=== PATIENT | female | born 1940 | race Caucasian/White ===

== ENCOUNTER 2017-08-19 23:30 | Emergency (ER) | payer MEDICARE, OTHER ==
[~2017-08-19] VITALS: Ht 162.6 cm; Wt 90.7 kg
[~2017-08-19 23:30] MED LIST: ESOM40CA PO; METO-237 PO; PRAV10TA2 PO; RAMI5CAP37 PO
--- NOTE | 2017-08-19 23:55 | PCM.EKG ---
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
[2017-08-19 23:56] VITALS: BP 186/100
[2017-08-20 00:34] LABS: BASOPHIL % 0.2 % (0.0-0.2); EOSINOPHIL # 0.1 10^3/uL (0.0-0.2); EOSINOPHIL % 1.2 % (0.0-5.0); HEMOGLOBIN 12.2 g/dL (12.0-15.0); LYMPHOCYTES # 1.7 10^3/uL (1.0-4.8); LYMPHOCYTES % 28.9 % (24.0-44.0); MEAN CELL HGB CONCENTRATION 35.3 g/dL (33-37); MEAN CORP VOLUME 85.2 fL (78-100); MEAN PLATELET VOLUME 9.7 fL (7.8-11.0); MONOCYTES # 0.4 10^3/uL (0.3-0.8); MONOCYTES % 7.3 % (5.0-12.0); NEUTROPHIL # 3.6 10^3/uL (1.8-7.7); NEUTROPHILS % 61.9 % (41.0-85.0); RED CELL DISTRIBUTION WIDTH 13.1 % (11.5-14.5); WHITE BLOOD CELL 5.8 10^3/uL (4.5-11.0)
[2017-08-20] MEDS: CATAPRES PO STA (00:36)
[2017-08-20] MEDS ORDERED: CATAPRES ONE (00:36)
--- NOTE | 2017-08-20 00:44 | DIREP ---
PROCEDURE:CHEST 1 VIEW COMPARISON:CR, CHEST 2 VIEW, 08/29/2013, 01:21 PM. INDICATIONS:CHEST AND BACK PAIN FINDINGS: FINDINGS: LUNGS/PLEURA:No significant pulmonary parenchymal abnormalities or pleural effusion. CARDIAC:Normal cardiac silhouette and normal pulmonary vascularity. MEDIASTINUM:Normal. BONES:Normal. OTHER:Right mastectomy and lymph node dissection. CONCLUSION:No acute cardiopulmonary process or significant change. Dictated by: Purnima Locke MD on 08/20/2017 at 00:42 AM
[2017-08-20 00:46] LABS: CARBON DIOXIDE 26.6 mmol/L (20.0-32); GLUCOSE 122 mg/dL (70-110)
[2017-08-20 00:47] LABS: ALANINE AMINOTRANSFERASE(ML) 25 U/L (12-78); ALKALINE PHOSPHATASE 98 U/L (50-136); ASPARTATE AMINO TRANSFERASE 21 U/L (0-35); CALCIUM 8.7 mg/dL (8.4-10.5)
--- NOTE | 2017-08-20 00:54 | ER.PDOC ---
General Chief Complaint: General Complaint Stated Complaint: HIGH BLOOD PRESSURE TRAVEL OUT OF US: No Time seen by MD: 00:20 Source: patient, family Exam Limitations: no limitations History of Present Illness Initial Comments 76 year old white male with high blood pressure reading. Does not watch salt intake. Takes medications regularly. History of chronic back pain but refuses to take pain medication. BP runs high at home and patient reports not feeling well. No nausea, no vomiting, no headache Allergies: Coded Allergies: Penicillins (Verified Allergy, Intermediate, RASH, 12/15/12) morphine (Verified Allergy, Mild, 11/06/14) Mmsvdrw-Qtg-Ewd Reductase Inhibitor (Verified Allergy, Unknown, Hives, ) "FLU-LIKE SYMPTOMS" Home Meds Reported Medications Pravastatin Sodium (PRAVASTATIN SODIUM) 10 Mg Tablet, 1 TAB PO HS, #90 TAB 1 Refill 08/09/15 Ramipril 5MG (ALTACE 5MG) 5 Mg Capsule, 1 CAP PO DAILY, #30 CAP 5 Refills 11/06/14 Metoprolol Succinate (METOPROLOL SUCCINATE) 50 Mg Tab.er.24h, 1 TAB PO DAILY, # 30 TAB 5 Refills 11/06/14 Esomeprazole Magnesium (NEXIUM) 40 Mg Capsule.dr, 1 CAP PO DAILY, #30 CAP 5 Refills 11/06/14 Past Medical History Medical History: arrhythmia, cancer, GERD, high cholesterol, hypertension, other (Paget's disease of the bone) Surgical History: cholecystectomy LMP (females 10-50): postmenopause Social History Smoking: non-smoker, quit greater than 1 year Alcohol Use: none Drug Use: none Review of Systems Constitutional: weakness EENTM: no symptoms reported Respiratory: no symptoms reported Cardiovascular: no symptoms reported Gastrointestinal: no symptoms reported Genitourinary: no symptoms reported Musculoskeletal: back pain Skin: no symptoms reported Psychiatric/Neurological: no symptoms reported Hematologic/Lymphatic: no symptoms reported Immunological/Allergic: no symptoms reported Physical Exam General Appearance: No Apparent Distress, WD/WN EENT: eyes nml inspection, nml ENT inspection, pharynx nml Neck: Non-Tender, Full Range of Motion, Supple, Normal Inspection Respiratory: chest non-tender, lungs clear, normal breath sounds, no respiratory distress, no accessory muscle use CVS: reg rate & rhythm, no murmur, no gallop, pulses nml, nml capillary refill Gastrointestinal: Normal Bowel Sounds, No Organomegaly, No Pulsatile Mass, Non Tender, Absent bowel sounds Rectal: Normal Exam Back: No CVA Tenderness, No Vertebral Tenderness Extremities: Normal Range of Motion, Non-Tender, Normal Inspection, No Pedal Edema 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0) Monocytes (%) (Auto) 7.3 % (5.0-12.0) Neutrophils # (Auto) 3.6 10^3/uL (1.8-7.7) Lymphocytes # (Auto) 1.7 10^3/uL (1.0-4.8) Monocytes # (Auto) 0.4 10^3/uL (0.3-0.8) Absolute Immature Granulocyte (auto 0.03 10^3 u/L (0-2) Eosinophils % 1.2 % (0.0-5.0) Basophils % 0.2 % (0.0-0.2) Basophils # 0.0 10^3/uL (0.0-0.1) Eosinophil Count 0.1 10^3/uL (0.0-0.2) Prothrombin Time 10.3 SEC (9.8-11.9) Prothrombin Time INR (Non-Therap) 1.0 Activated Partial Thromboplast Time 24.1 SEC (24.67-30.72) Sodium Level 142 mmol/L (132-145) Potassium Level 3.6 mmol/L (3.6-5.2) Chloride Level 106.0 mmol/L (96-109) Carbon Dioxide Level 26.6 mmol/L (20.0-32) Anion Gap 13.0 Blood Urea Nitrogen 16 mg/dL (7-18) Creatinine 1.13 mg/dL (0.59-1.40) Estimated GFR () 56.3 (>/=60) BUN/Creatinine Ratio 14.0 Glucose Level 122 mg/dL (70-110) Calcium Level 8.7 mg/dL (8.4-10.5) Total Bilirubin 0.4 mg/dL (0.2-1.0) Aspartate Amino Transf (AST/SGOT) 21 U/L (0-35) Alanine Aminotransferase (ALT/SGPT) 25 U/L (12-78) Alkaline Phosphatase 98 U/L (50-136) Total Creatine Kinase 50 U/L (26-192) Creatine Kinase MB 1.5 ng/mL (0.5-3.6) Troponin I < 0.02 ng/mL (0.00-0.05) Pro-B-Type Natriuretic Peptide 321 pg/mL (0-450) Total Protein 7.0 g/dL (6.4-8.2) Albumin 3.8 g/dL (3.4-5.0) Globulin 3.2 Percent Immature Gran (Cell Imm) 0.50 % (0.00-0.50) Helicobacter pylori Screen NEGATIVE (NEGATIVE) Administered Medications Medications (Trade) Dose Ordered Sig/Bee Route PRN Reason Start Time Stop Time Status Last Admin Dose Admin Clonidine (Catapres) 0.2 mg STAT STAT PO 08/20/17 00:30 08/20/17 00:31 DC 08/20/17 00:36 Progress Progress BP on recheck 185/85. Feeling better. Labs reviewed with patient. Departure Time of Disposition: 01:46 Disposition: 01 HOME, SELF-CARE Impression: Primary Impression: Hypertension Qualified Codes: I10 - Essential (primary) hypertension Condition: Stable Referrals: KAYLIN FLORENCE DO (PCP) PRIMARY CARE PROVIDER Additional Instructions: Watch salt intake ADD Norvasc 5 mg po qd ADD Clonidine 0.1 mg po bid for BP > 160/100. May repeat Follow up PCP RTER prn Check bp at home. Goal < 135/85 Duration or Time Spent with Pa: 60 TYSON MCKINNEY MD Aug 20, 2017 00:54
[2017-08-20 01:00] VITALS: BP 179/98
[2017-08-20 01:57] VITALS: BP 174/86
== END 2017-08-20 01:55 | disposition home or self-care (01) ==
LOC: ER 23:30
DX: I10 Essential (primary) hypertension (principal); E78.00 Pure hypercholesterolemia, unspecified; K21.9 Gastro-esophageal reflux disease without esophagitis; M88.9 Osteitis deformans of unspecified bone; R79.1 Abnormal coagulation profile; M54.9 Dorsalgia, unspecified; Z88.0 Allergy status to penicillin; Z88.5 Allergy status to narcotic agent; Z90.49 Acquired absence of other specified parts of digestive tract; Z87.891 Personal history of nicotine dependence; Z79.899 Other long term (current) drug therapy
CPT/HCPCS: 36415; 71045; 80053; 82550; 82553; 83880; 84484; 85025; 85610; 85730; 86677; 93005; 99283; 99285

== ENCOUNTER 2017-11-17 22:05 | Emergency (ER) | payer MEDICARE, OTHER ==
[2017-11-17] VITALS (7 sets, daily range): BP systolic 196–224; BP diastolic 64–112
[~2017-11-17] VITALS: Ht 165.1 cm; Wt 86.2 kg
[2017-11-17] MEDS ORDERED: CATAPRES PO STA (22:47)
[2017-11-17 22:58] LABS: BILIRUBIN,URINE NEGATIVE (NEGATIVE); UROBILINOGEN,URINE NORMAL (NEGATIVE)
[2017-11-17 22:59] LABS: APPEARANCE,URINE CLEAR (CLEAR); UA COLOR YELLOW (YELLOW)
[2017-11-17] MEDS ORDERED: CATAPRES ONE (22:59)
[2017-11-17 23:04] LABS: BASOPHIL % 0.2 % (0.0-0.2); EOSINOPHIL # 0.1 10^3/uL (0.0-0.2); EOSINOPHIL % 1.6 % (0.0-5.0); HEMOGLOBIN 12.9 g/dL (12.0-15.0); LYMPHOCYTES # 1.6 10^3/uL (1.0-4.8); LYMPHOCYTES % 31.3 % (24.0-44.0); MEAN CELL HGB 29.2 pg (26-34); MEAN CORP VOLUME 85.7 fL (78-100); MEAN PLATELET VOLUME 8.8 fL (7.8-11.0); MONOCYTES # 0.4 10^3/uL (0.3-0.8); MONOCYTES % 7.6 % (5.0-12.0); NEUTROPHIL # 3.1 10^3/uL (1.8-7.7); NEUTROPHILS % 59.3 % (41.0-85.0); RED CELL DISTRIBUTION WIDTH 13.4 % (11.5-14.5); WHITE BLOOD CELL 5.1 10^3/uL (4.5-11.0)
--- NOTE | 2017-11-17 23:17 | DIREP ---
PROCEDURE:CT HEAD OR BRAIN W/O CONTRAST COMPARISON:[facility], MR, MRI BRAIN W/WO, 01/19/2017, 11:01 AM. [facility], CT, CT HEAD BRAIN W/O CONTRAST, 12/14/2016, 04:30 PM. INDICATIONS:Headache TECHNIQUE:CT images were created without intravenous contrast. FINDINGS: VENTRICLES:There is mild prominence of the ventricles and cortical sulci consistent with age related involutional changes. CEREBRUM:Small foci of diminished attenuation in the supratentorial white matter consistent with mild leukoaraiosis. CEREBELLUM:Negative. BRAINSTEM:Negative. BASAL CISTERNS:Negative. HEMORRHAGE:No MASS LESION:No ACUTE INFARCT:No SKULL:Hyperostosis frontalis SINUSES:Normal. OTHER:None CONCLUSION:No acute intracranial process demonstrated. No significant interval change Dictated by: Marquez Albrecht M.D. on 11/17/2017 at 11:14 PM
[2017-11-17 23:21] LABS: CALCIUM 9.1 mg/dL (8.4-10.5); CARBON DIOXIDE 30.6 mmol/L (20.0-32)
--- NOTE | 2017-11-17 23:22 | ER.PDOC ---
General Chief Complaint: Headache Stated Complaint: HEADACHE, HBP Time seen by MD: 22:40 Source: patient Exam Limitations: no limitations History of Present Illness Initial Comments Pt with history of HTN, Paget's, now developed headache, intense since earlier today Timing/Duration: 24 hours Severity/Quality: severe Prior Headaches/Recent Trauma: frequent headaches Associated Symptoms: denies symptoms Allergies: Coded Allergies: Penicillins (Verified Allergy, Intermediate, RASH, 12/15/12) morphine (Verified Allergy, Mild, 11/06/14) Edvbsem-Vkq-Yyy Reductase Inhibitor (Verified Allergy, Unknown, Hives, ) "FLU-LIKE SYMPTOMS" Home Meds Reported Medications Pravastatin Sodium (PRAVASTATIN SODIUM) 10 Mg Tablet, 1 TAB PO HS, #90 TAB 1 Refill 08/09/15 Ramipril 5MG (ALTACE 5MG) 5 Mg Capsule, 1 CAP PO DAILY, #30 CAP 5 Refills 11/06/14 Metoprolol Succinate (METOPROLOL SUCCINATE) 50 Mg Tab.er.24h, 1 TAB PO DAILY, # 30 TAB 5 Refills 11/06/14 Esomeprazole Magnesium (NEXIUM) 40 Mg Capsule.dr, 1 CAP PO DAILY, #30 CAP 5 Refills 11/06/14 Past Medical History Medical History: cancer, hypertension Surgical History: cholecystectomy, mastectomy Social History Smoking: non-smoker Alcohol Use: none Drug Use: none Review of Systems Psychiatric/Neurological: see HPI, headache All Other Systems: Reviewed and Negative Physical Exam General Appearance: No Apparent Distress, WD/WN Head/Eyes: eyes nml inspection, no facial swelling, no nystagmus, PERRL ENT: nml ENT inspection, pharynx nml Neck: nml inspection, Supple Cardiovascular: Normal Peripheral Pulses, Regular Rate, Rhythm, No Edema, No Gallop, No JVD, No Murmur Respiratory: chest non-tender, lungs clear, normal breath sounds, no respiratory distress, no accessory muscle use Gastrointestinal: Normal Bowel Sounds, No Organomegaly, No Pulsatile Mass, Non Tender, Soft Back: Normal Inspection, No CVA Tenderness, No Vertebral Tenderness Extremities: Normal Range of Motion, Non-Tender, Normal Inspection, No Pedal Edema, No Calf Tenderness, Normal Capillary Refill Psychiatric: Alert, Oriented x 3 Cranial Nerves: Normal Hearing, Normal Speech, PERRL Coordination/Gait: Normal Finger to Nose, Normal Gait Motor/Sensory: No Motor Deficit, No Sensory Deficit, No Pronator Drift, Negative Babinski's Sign Skin: Warm/Dry, Normal Color Lymphatic: No Adenopathy Results/Orders Results/Orders Laboratory Tests Test 11/17/17 00:00 11/17/17 22:55 Urine Collection Type UNKNOWN Urine Color YELLOW (YELLOW) Urine Appearance CLEAR (CLEAR) Urine Bilirubin NEGATIVE MG/DL (NEGATIVE) Urine Ketones NEGATIVE (NEGATIVE) Urine Specific [place] 1.015 (1.005-1.035) Urine pH 6 (5.0-6.0) Urine Protein NEGATIVE (NEGATIVE) Urine Urobilinogen NORMAL (NEGATIVE) Urine Nitrate NEGATIVE (NEGATIVE) Urine Leukocyte Esterase NEGATIVE (NEGATIVE) Urine Blood NEGATIVE (NEGATIVE) Urine Glucose NORMAL (NEGATIVE) White Blood Count 5.1 10^3/uL (4.5-11.0) Red Blood Count 4.42 10^6/uL (4.00-5.20) Hemoglobin 12.9 g/dL (12.0-15.0) Hematocrit 37.9 % (36.0-46.0) Mean Corpuscular Volume 85.7 fL (78-100) Mean Corpuscular Hemoglobin 29.2 pg (26-34) Mean Corpuscular Hemoglobin Concent 34.0 g/dL (33-37) Red Cell Distribution Width 13.4 % (11.5-14.5) Platelet Count 140 10^3/uL (150-400) Mean Platelet Volume 8.8 fL (7.8-11.0) Neutrophils (%) (Auto) 59.3 % (41.0-85.0) Lymphocytes (%) (Auto) 31.3 % (24.0-44.0) Monocytes (%) (Auto) 7.6 % (5.0-12.0) Neutrophils # (Auto) 3.1 10^3/uL (1.8-7.7) Lymphocytes # (Auto) 1.6 10^3/uL (1.0-4.8) Monocytes # (Auto) 0.4 10^3/uL (0.3-0.8) Absolute Immature Granulocyte (auto 0 10^3 u/L (0-2) Eosinophils % 1.6 % (0.0-5.0) Basophils % 0.2 % (0.0-0.2) Basophils # 0.0 10^3/uL (0.0-0.1) Eosinophil Count 0.1 10^3/uL (0.0-0.2) Sodium Level 144 mmol/L (132-145) Potassium Level 3.4 mmol/L (3.6-5.2) Chloride Level 104.0 mmol/L (96-109) Carbon Dioxide Level 30.6 mmol/L (20.0-32) Anion Gap 12.8 Blood Urea Nitrogen 12 mg/dL (7-18) Creatinine 0.94 mg/dL (0.59-1.40) Estimated GFR () 69.5 (>/=60) BUN/Creatinine Ratio 12.0 Glucose Level 124 mg/dL (70-110) Calcium Level 9.1 mg/dL (8.4-10.5) Total Bilirubin 0.5 mg/dL (0.2-1.0) Aspartate Amino Transf (AST/SGOT) 25 U/L (0-35) Alanine Aminotransferase (ALT/SGPT) 22 U/L (12-78) Alkaline Phosphatase 88 U/L (50-136) Total Protein 7.1 g/dL (6.4-8.2) Albumin 3.9 g/dL (3.4-5.0) Globulin 3.2 Percent Immature Gran (Cell Imm) 0.00 % (0.00-0.50) Administered Medications Medications (Trade) Dose Ordered Sig/Bee Route PRN Reason Start Time Stop Time Status Last Admin Dose Admin Clonidine (Catapres) 0.2 mg STAT STAT PO 11/17/17 22:47 11/17/17 22:49 DC 11/17/17 23:00 Departure Time of Disposition: 23:56 Disposition: 01 HOME, SELF-CARE Impression: Primary Impression: Headache Additional Impression: Hypertension Condition: Stable Patient Instructions: Hypertension Referrals: KAYLIN FLOERNCE DO (PCP) PRIMARY CARE PROVIDER Duration or Time Spent with Pa: ZOILA TAN MD Nov 17, 2017 23:22
[2017-11-17] MEDS ORDERED: TRANDATE IV ONE (23:46)
[2017-11-18] MEDS ORDERED: TRANDATE IV PRN
[2017-11-18 00:15] VITALS: BP 144/76
[2017-11-18 00:24] VITALS: BP 144/76
== END 2017-11-18 00:14 | disposition home or self-care (01) ==
LOC: ER 22:05
DX: I10 Essential (primary) hypertension (principal); Z85.9 Personal history of malignant neoplasm, unspecified; Z90.49 Acquired absence of other specified parts of digestive tract; Z90.10 Acquired absence of unspecified breast and nipple; Z79.899 Other long term (current) drug therapy; Z88.0 Allergy status to penicillin; Z88.5 Allergy status to narcotic agent; Z88.8 Allergy status to other drugs, medicaments and biological substances
CPT/HCPCS: 36415; 70450; 80053; 81002; 85025; 99285; J3490

== ENCOUNTER 2017-11-18 10:16 | Emergency (ER) | payer MEDICARE, OTHER ==
[~2017-11-18] VITALS: Ht 162.6 cm; Wt 86.6 kg
[2017-11-18 10:32] VITALS: BP 155/87
--- NOTE | 2017-11-18 10:32 | NUR ---
ARRIVAL PATIENT ARRIVED TO ED4 AMBULATORY, C/O OF GENERALIZED WEAKNESS TODAY, PATIENT WAS SEEN IN THE ED LAST NIGHT FOR SIMILAR SYMPTOMS AND SENT HOME, TODAY SHE ISNT FEELING ANY BETTER, CAME BACK TO THE ED FOR FURTHER EVAL.
[2017-11-18] MEDS ORDERED: NS 1000ML 1,000 ML ONE (10:52)
[2017-11-18] MEDS ORDERED: NS 1000ML 1,000 ML IV STA (10:53)
--- NOTE | 2017-11-18 10:56 | PCM.EKG ---
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
--- NOTE | 2017-11-18 11:17 | ER.PDOC ---
General Chief Complaint: General Complaint Stated Complaint: GENERAL COMPLAINT TRAVEL OUT OF US: No Time seen by MD: 11:13 Source: patient Exam Limitations: no limitations History of Present Illness Initial Comments Weakness, mouth dry, wants IVFs. This has been going on for days. Seen in the ED yesterday for similar presentation with negative blood work and CT head. Patient wants to sleep most of the time and does not want to do anything. She is stressed. No SI or HI. Severity: moderate Associated Symptoms: weakness Allergies: Coded Allergies: Penicillins (Verified Allergy, Intermediate, RASH, 12/15/12) morphine (Verified Allergy, Mild, 11/06/14) Cpojbby-Lav-Eov Reductase Inhibitor (Verified Allergy, Unknown, Hives, ) "FLU-LIKE SYMPTOMS" Home Meds Reported Medications Pravastatin Sodium (PRAVASTATIN SODIUM) 10 Mg Tablet, 1 TAB PO HS, #90 TAB 1 Refill 08/09/15 Ramipril 5MG (ALTACE 5MG) 5 Mg Capsule, 1 CAP PO DAILY, #30 CAP 5 Refills 11/06/14 Metoprolol Succinate (METOPROLOL SUCCINATE) 50 Mg Tab.er.24h, 1 TAB PO DAILY, # 30 TAB 5 Refills 11/06/14 Esomeprazole Magnesium (NEXIUM) 40 Mg Capsule.dr, 1 CAP PO DAILY, #30 CAP 5 Refills 11/06/14 Past Medical History Medical History: cancer, hypertension, other Surgical History: cancer surgery, cholecystectomy, other LMP (females 10-50): postmenopause Social History Smoking: non-smoker Alcohol Use: none Drug Use: none Review of Systems Constitutional: see HPI EENTM: no symptoms reported Respiratory: no symptoms reported Cardiovascular: no symptoms reported Gastrointestinal: no symptoms reported Genitourinary: no symptoms reported All Other Systems: Reviewed and Negative Physical Exam General Appearance: No Apparent Distress, Anxious Neck: Non-Tender, Full Range of Motion, Supple, Normal Inspection Respiratory: chest non-tender, lungs clear, normal breath sounds, no respiratory distress CVS: reg rate & rhythm, no murmur, no gallop, pulses nml, nml capillary refill Gastrointestinal: Normal Bowel Sounds, No Organomegaly, No Pulsatile Mass, Non Tender Back: Normal Inspection Extremities: Normal Range of Motion Neurologic/Psychiatric: Depressed Affect Skin: Normal Color Results/Orders Results/Orders Administered Medications Medications (Trade) Dose Ordered Sig/Bee Route PRN Reason Start Time Stop Time Status Last Admin Dose Admin Sodium Chloride 1,000 ml @ 1,200 mls/hr Q50M STAT IV 11/18/17 10:53 11/18/17 11:42 11/18/17 11:02 Departure Time of Disposition: 11:15 Disposition: 01 HOME, SELF-CARE Impression: Primary Impression: Anxiety and depression Condition: Stable Referrals: KAYLIN FLORENCE DO (PCP) PRIMARY CARE PROVIDER Additional Instructions: F/U with your PCP in 3-4 days Duration or Time Spent with Pa: 45 mins YONG,CASSANDRA Shafer MD Nov 18, 2017 11:17
[2017-11-18 11:30] VITALS: BP 138/78
[2017-11-18 11:40] VITALS: BP 138/78
== END 2017-11-18 11:39 | disposition home or self-care (01) ==
LOC: ER 10:16
DX: F41.9 Anxiety disorder, unspecified (principal); F32.9 Major depressive disorder, single episode, unspecified; I10 Essential (primary) hypertension; Z85.9 Personal history of malignant neoplasm, unspecified; Z90.49 Acquired absence of other specified parts of digestive tract; Z79.899 Other long term (current) drug therapy; Z88.0 Allergy status to penicillin; Z88.5 Allergy status to narcotic agent; Z88.8 Allergy status to other drugs, medicaments and biological substances
CPT/HCPCS: 93005; 99284; J7030

== ENCOUNTER → 2018-01-21 | Outpatient (CLI) | payer MEDICARE, OTHER ==
--- NOTE | 2018-01-21 13:24 | DIREP ---
PROCEDURE:CT HEAD OR BRAIN W/O CONTRAST COMPARISON:[facility], CT, CT HEAD BRAIN W/O CONTRAST, 11/17/2017, 10:58 PM. INDICATIONS:FALL W19.XXXA, R/O SUBDURAL HEMATOMA TECHNIQUE:CT images were created without intravenous contrast. FINDINGS: VENTRICLES: Unremarkable ventricular size and morphology for the patient's age. CEREBRUM: Mild generalized age-related parenchymal volume loss. No apparent mass or mass effect. No acute intracranial hemorrhage or abnormal extra-axial fluid collections. No CT evidence to suggest acute large vascular territorial ischemia. CEREBELLUM: Unremarkable for the patient's age. BRAINSTEM: Normal. SKULL: Normal. SINUSES: No significant paranasal sinus disease CONCLUSION: 1. Mild senescent changes with mild generalized age-related parenchymal volume loss. No acute intracranial abnormality is identified. No subdural hematoma. Dictated by: Redd Villa M.D. On 01/21/2018 at 01:16 PM
== END | disposition home or self-care (01) ==
LOC: RAD 10:26
PROVIDERS: ATTEND Internal Medicine Rheumatology
DX: G93.89 Other specified disorders of brain (principal); W19.XXXA Unspecified fall, initial encounter; Y93.89 Activity, other specified; Y92.89 Other specified places as the place of occurrence of the external cause; Y99.8 Other external cause status
CPT/HCPCS: 70450

== ENCOUNTER 2018-04-28 11:16 | Inpatient (IN) | payer MEDICARE, OTHER ==
[~2018-04-28] VITALS: Ht 162.6 cm; Wt 95.3 kg
--- NOTE | 2018-04-28 11:16 | NUR ---
ARRIVAL PT ARRIVED VIA WHEELCHAIR TO ER 3 C/O RIGHT KNEE PAIN POST FALL APPROXIMATELY 15 MINUTES PRIOR TO ARRIVAL. PT STATES WAS WALKING DOWN A FEW STEPS IN FRONT OF HER HOME WHEN SHE MISSED A STEP AND FELL. NO ACUTE DISTRESS NOTED. EDP NOTIFIED OF PT ARRIVAL.
--- NOTE | 2018-04-28 11:37 | PCM.EKG ---
[facility] Test Date: 2018-04-28 Test Time: 11:34:06 Pat Name: JIGNESH CHRISTY Department: Room: 328 Gender: F Section Chief: OMID : 1940 Requested By: CASSANDRA BEACH Order Number: [id number] Reading MD: Cassandra BEACH Measurements Intervals [place] Rate: 78 P: 51 [place]: 128 QRS: 22 QRSD: 82 T: 33 QT: 378 QTc: 430 Interpretive Statements Normal sinus rhythm ST abnormality, possible digitalis effect Abnormal ECG Compared to ECG 11/18/2017 10:41:34 ST (T wave) deviation now present Electronically Signed On 04-28-2018 22:40:49 GAME DESIGN INSTRUCTOR by Cassandra BEACH Please click the below link to view image of tracing.
--- NOTE | 2018-04-28 11:40 | NUR ---
SKIN TEAR SKIN TEAR NOTED TO RIGHT FOREARM. REPAIRED WITH STERI STRIPS. PT TOLERATED WELL.
[2018-04-28 11:46] LABS: BASOPHIL % 0.2 % (0.0-0.2); EOSINOPHIL # 0.1 10^3/uL (0.0-0.2); HEMOGLOBIN 12.9 g/dL (12.0-15.0); LYMPHOCYTES # 1.2 10^3/uL (1.0-4.8); LYMPHOCYTES % 23.1 % (24.0-44.0); MEAN CELL HGB 29.8 pg (26-34); MEAN CELL HGB CONCENTRATION 34.2 g/dL (33-37); MEAN CORP VOLUME 87.1 fL (78-100); MEAN PLATELET VOLUME 9.7 fL (7.8-11.0); MONOCYTES # 0.3 10^3/uL (0.3-0.8); MONOCYTES % 6.3 % (5.0-12.0); NEUTROPHIL # 3.5 10^3/uL (1.8-7.7); RED CELL DISTRIBUTION WIDTH 13.1 % (11.5-14.5); WHITE BLOOD CELL 5.1 10^3/uL (4.5-11.0)
[2018-04-28 12:04] VITALS: BP 192/99
--- NOTE | 2018-04-28 12:07 | ER.PDOC ---
General Chief Complaint: Requesting Medical Care Stated Complaint: RT KNEE INJURY Time seen by MD: 11:50 Source: patient Exam Limitations: no limitations History of Present Illness Initial Comments Right knee, hip and left foot pain S/P fall. Occurred: just prior to arrival Where: home Severity: moderate Context: Tripped Loss of Consciousness: No Loss of Consciousness Associated Symptoms: denies symptoms Allergies: Coded Allergies: Penicillins (Verified Allergy, Intermediate, RASH, 12/15/12) morphine (Verified Allergy, Mild, 11/06/14) Htzdlhu-Swe-Nez Reductase Inhibitor (Verified Allergy, Unknown, Hives, ) "FLU-LIKE SYMPTOMS" MEDS Reported Medications Pravastatin Sodium (PRAVASTATIN SODIUM) 10 Mg Tablet, 1 TAB PO HS, #90 TAB 1 Refill 08/09/15 Ramipril 5MG (ALTACE 5MG) 5 Mg Capsule, 1 CAP PO DAILY, #30 CAP 5 Refills 11/06/14 Metoprolol Succinate (METOPROLOL SUCCINATE) 50 Mg Tab.er.24h, 1 TAB PO DAILY, # 30 TAB 5 Refills 11/06/14 Esomeprazole Magnesium (NEXIUM) 40 Mg Capsule.dr, 1 CAP PO DAILY, #30 CAP 5 Refills 11/06/14 Past Medical History Surgical History: cancer surgery, cholecystectomy, other Social History Drug Use: none Review of Systems Constitutional: no symptoms reported Eyes: no symptoms reported Respiratory: no symptoms reported Cardiovascular: no symptoms reported Gastrointestinal: no symptoms reported Musculoskeletal: see HPI All Other Systems: Reviewed and Negative Physical Exam General Appearance: No Apparent Distress, WD/WN Head: No Evidence of Injury Neck: Non-Tender, Normal Alignment, Nexus criteria neg, Normal Inspection Cardiovascular/Respiratory: Regular Rate, Rhythm, No M/R/G, Normal Peripheral Pulses, No JVD, Normal Breath Sounds, No Respiratory Distress Gastrointestinal: Normal Bowel Sounds, No Organomegaly, No Pulsatile Mass, Non Tender, Soft Back: Normal Inspection, No CVA Tenderness, No Vertebral Tenderness Extremities: Pain With Movement (right hip), Tenderness (right knee and left foot) 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, No Motor/Sensory Deficits, Alert, Normal Mood/Affect, Oriented x 3 Skin: Normal Color, Warm/Dry [place] Coma Score Best Eye Response: (4) Open Spontaneously Best Verbal Response: (5) Oriented Best Motor Response: (6) Obeys Commands Results/Orders Results/Orders Laboratory Tests Test 04/28/18 11:40 White Blood Count 5.1 10^3/uL (4.5-11.0) Red Blood Count 4.33 10^6/uL (4.00-5.20) Hemoglobin 12.9 g/dL (12.0-15.0) Hematocrit 37.7 % (36.0-46.0) Mean Corpuscular Volume 87.1 fL (78-100) Mean Corpuscular Hemoglobin 29.8 pg (26-34) Mean Corpuscular Hemoglobin Concent 34.2 g/dL (33-37) Red Cell Distribution Width 13.1 % (11.5-14.5) Platelet Count 135 10^3/uL (150-400) Mean Platelet Volume 9.7 fL (7.8-11.0) Neutrophils (%) (Auto) 69.0 % (41.0-85.0) Lymphocytes (%) (Auto) 23.1 % (24.0-44.0) Monocytes (%) (Auto) 6.3 % (5.0-12.0) Neutrophils # (Auto) 3.5 10^3/uL (1.8-7.7) Lymphocytes # (Auto) 1.2 10^3/uL (1.0-4.8) Monocytes # (Auto) 0.3 10^3/uL (0.3-0.8) Absolute Immature Granulocyte (auto 0.02 10^3 u/L (0-2) Eosinophils % 1.0 % (0.0-5.0) Basophils % 0.2 % (0.0-0.2) Basophils # 0.0 10^3/uL (0.0-0.1) Eosinophil Count 0.1 10^3/uL (0.0-0.2) Prothrombin Time 10.2 SEC (9.8-11.9) Prothrombin Time INR (Non-Therap) 1.0 Activated Partial Thromboplast Time 21.5 SEC (24.67-30.72) Sodium Level 141 mmol/L (132-145) Potassium Level 3.9 mmol/L (3.6-5.2) Chloride Level 105.0 mmol/L (96-109) Carbon Dioxide Level 26.8 mmol/L (20.0-32) Anion Gap 13.1 Blood Urea Nitrogen 15 mg/dL (7-18) Creatinine 1.08 mg/dL (0.59-1.40) Estimated GFR () 59.2 (>/=60) BUN/Creatinine Ratio 13.0 Glucose Level 106 mg/dL (70-110) Calcium Level 8.7 mg/dL (8.4-10.5) Total Bilirubin 0.7 mg/dL (0.2-1.0) Aspartate Amino Transf (AST/SGOT) 24 U/L (0-35) Alanine Aminotransferase (ALT/SGPT) 23 U/L (12-78) Alkaline Phosphatase 85 U/L (50-136) Troponin I < 0.02 ng/mL (0.00-0.05) Total Protein 7.2 g/dL (6.4-8.2) Albumin 3.8 g/dL (3.4-5.0) Globulin 3.4 Percent Immature Gran (Cell Imm) 0.40 % (0.00-0.50) EKG/XRAY/CT/US EKG: NSR XRAY: chest (No active disease) XRAY Comments: Right patella and left 5th metatarsal fracture Departure Time of Disposition: 14:56 Disposition: 09 ADMITTED INPATIENT Impression: Primary Impression: Fracture of right patella Additional Impression: Metatarsal fracture Condition: Stable Referrals: KAYLIN FLORENCE DO (PCP) PRIMARY CARE PROVIDER Comments Admitted to Dr. Alvarado, Spoke to Dr. Lott who will consult. Duration or Time Spent with Pa: 90 mins Problem Qualifiers Primary Impression: Fracture of right patella Encounter type: initial encounter Fracture type: closed Fracture morphology : unspecified fracture morphology Fracture alignment: displaced Qualified Codes: S82.001A - Unspecified fracture of right patella, initial encounter for closed fracture Additional Impression: Metatarsal fracture Encounter type: initial encounter Metatarsal bone: fifth Fracture type: closed Fracture alignment: displaced Laterality: left Qualified Codes: S92.352A - Displaced fracture of fifth metatarsal bone, left foot, initial encounter for closed fracture CASSANDRA BEACH MD Apr 28, 2018 12:07
[2018-04-28 12:08] LABS: ALANINE AMINOTRANSFERASE(ML) 23 U/L (12-78); ALKALINE PHOSPHATASE 85 U/L (50-136); ASPARTATE AMINO TRANSFERASE 24 U/L (0-35); CALCIUM 8.7 mg/dL (8.4-10.5); CARBON DIOXIDE 26.8 mmol/L (20.0-32); GLUCOSE 106 mg/dL (70-110)
--- NOTE | 2018-04-28 12:38 | NUR ---
CT PT RETURNED FROM CT AT THIS TIME.
--- NOTE | 2018-04-28 12:49 | DIREP ---
PROCEDURE:CT HEAD OR BRAIN W/O CONTRAST COMPARISON:[facility], CT, CT HEAD BRAIN W/O CONTRAST, 01/21/2018, 10:42 AM. INDICATIONS:Pain S/P fall TECHNIQUE:CT images were created without intravenous contrast. FINDINGS: VENTRICLES:The ventricles are normal in size and configuration. CEREBRUM:Normal cerebral morphology with appropriate villalobos white matter differentiation. CEREBELLUM:Negative. BRAINSTEM:Negative. BASAL CISTERNS:Negative. HEMORRHAGE:No MASS LESION:No ACUTE INFARCT:No SKULL:Normal. SINUSES:Normal. OTHER:None CONCLUSION:No acute abnormalities. Dictated by: Sunny Plummer M.D. on 04/28/2018 at 12:45 PM
--- NOTE | 2018-04-28 12:54 | DIREP ---
PROCEDURE:CHEST 1 VIEW COMPARISON:[facility], CR, XRAY CHEST SINGLE VW, 08/20/2017, 00:[address] [facility], , CHEST 2 VIEW, 08/29/2013, 01:21 PM. INDICATIONS:syncope FINDINGS: LUNGS/PLEURA:No significant pulmonary parenchymal abnormalities. No effusions. VASCULATURE:Normal. Unremarkable pulmonary vasculature. CARDIAC:Normal. No cardiac silhouette abnormality or cardiomegaly. MEDIASTINUM:Normal. No visible mass or adenopathy. BONES:Normal. No fracture or visible bony lesion. OTHER:Right mastectomy. Surgical clips in the right axilla. CONCLUSION:No acute cardiopulmonary abnormalities. There is no significant change as compared with the previous examination. Dictated by: Sunny Plummer M.D. on 04/28/2018 at 12:51 PM
[2018-04-28 13:00] VITALS: BP 174/80
--- NOTE | 2018-04-28 13:05 | DIREP ---
PROCEDURE:XRAY KNEE 3 VIEWS-RT COMPARISON:[facility], CR, XRAY KNEE 3 VIEWS-BILAT, 01/17/2018, 02:34 PM. INDICATIONS:Pain S/P fall FINDINGS: BONES:Complete mildly displaced fracture of the midportion of the patella. JOINTS:Small suprapatellar joint effusion. SOFT TISSUES:Soft tissue swelling anterior to the patella. OTHER:No additional findings. CONCLUSION:Fracture of the right patella. Dictated by: Sunny Plummer M.D. on 04/28/2018 at 01:02 PM
--- NOTE | 2018-04-28 13:38 | DIREP ---
PROCEDURE:XRAY FOOT MIN 3 VWS-LT COMPARISON:None. INDICATIONS:Pain S/P fall FINDINGS: BONES:Nondisplaced transverse fracture through the proximal portion/base of the 5th metatarsal. Incidental note is made of a small plantar calcaneal bone spur, probably not clinically significant. JOINTS:Normal. SOFT TISSUES:Normal. OTHER:No additional findings. CONCLUSION:Acute nondisplaced fracture of the left 5th metatarsal peer Dictated by: Simon Cuellar M.D. on 04/28/2018 at 01:35 PM
[2018-04-28] MEDS ORDERED: ZOFRAN IV STA (13:56)
[2018-04-28] MEDS ORDERED: DEMEROL IV STA (13:56)
[2018-04-28 14:00] VITALS: BP 178/76
[2018-04-28] MEDS ORDERED: BOOSTRIX TDAP IM ONE ×2 (14:00→15:28)
--- NOTE | 2018-04-28 14:45 | NUR ---
XRAY PT TO XRAY VIA STRETCHER.
[2018-04-28 15:00] VITALS: BP 174/81
[2018-04-28] MEDS ORDERED: D5W-1/2 NS/KCL 20MEQ 1,000 ML IV STA (15:04)
--- NOTE | 2018-04-28 15:05 | DIREP ---
PROCEDURE:XRAY PELVIS 1-2 VWS COMPARISON:04/28/2018, 12:15 PM. [facility], CR, XRAY HIP MIN 2VW-RT, 04/28/2018, 02:39 PM. [facility], CR, XRAY PELVIS 1-2 VWS, 01/17/2018, 02:30 PM. INDICATIONS:Pain right hip FINDINGS: BONES:Generalized osteopenia. No acute deformities.. JOINTS:Normal. SOFT TISSUES:Normal. OTHER:No additional findings. CONCLUSION:Generalized osteopenia. No acute deformities. Dictated by: Jakob Ramires MD on 04/28/2018 at 02:59 PM
--- NOTE | 2018-04-28 15:07 | DIREP ---
PROCEDURE:XRAY HIP MIN 2VW-RT COMPARISON:None. INDICATIONS:Pain FINDINGS: BONES:Normal. JOINTS:Prominent right acetabular roof slightly over covering the right femoral head could result in pincer type femoroacetabular impingement. No acute deformities. Generalized osteopenia. SOFT TISSUES:Normal. OTHER:No additional findings. CONCLUSION: 1. No acute deformities. 2. Generalized osteopenia. 3. Right acetabular roof slightly over covers the right femoral head that could result in pincer type femoroacetabular impingement. Dictated by: Jakob Ramires MD on 04/28/2018 at 03:03 PM
[2018-04-28] MEDS ORDERED: ZOFRAN ONE (15:27)
[2018-04-28] MEDS ORDERED: D5W-1/2 NS/KCL 20MEQ 1,000 ML ONE (15:28)
[2018-04-28] MEDS ORDERED: DEMEROL ONE (15:28)
[2018-04-28] MEDS ORDERED: ZOFRAN IV PRN (15:30)
[2018-04-28] MEDS ORDERED: ASPI-484 PO (15:56)
[2018-04-28] MEDS ORDERED: SERT100T5 PO (15:56)
[2018-04-28] MEDS ORDERED: PANT40TA3 PO (15:56)
[2018-04-28] MEDS ORDERED: RAMI5CAP57 PO (15:56)
[2018-04-28 16:00] VITALS: BP 144/71
--- NOTE | 2018-04-28 16:05 | NUR ---
O2 PT O2 SATS 85% ON ROOM AIR AFTER DEMEROL ADMINISTRATION. PT PLACED ON 2L O2 VIA NC. SATS ON 2L ARE 99%.
--- NOTE | 2018-04-28 16:16 | NUR ---
REPORT REPORT TO RANDALL JUNG. PT GOING TO [facility].
--- NOTE | 2018-04-28 17:22 | PCM.HP ---
History of Present Illness Reason for Visit: Fall, right Patella fx History of Present Illness Patient is a 77 F PMH of Sjogren's Syndrome, Paget's disease, breast cancer, HTN , HLD, presenting with mechanical fall this AM from her porch and found to have 5th left metatarsal fx and Right Patella fx. Patient denies LOC, head trauma. Imaging/labs reviewed. Patient denies chest pain, shortness of breath, fever, dizziness, or any other concerning symptoms. Fall was purely mechanical. Patient seen by Ortho in ER and splint/dressing applied to Right leg. Patient is to go to the OR in AM for repair. Medicine team consulted for management of BP. Past Medical History Cardiac: HTN, Hyperlipidemia Heme/Onc: Cancer Psychiatric: Anxiety Musculoskeletal: Osteoarthritis Rheumatologic: Other (Sjogren's disease) Endocrine: Other (Paget's Disease) Past Surgical History: Cholecystectomy, Other (Mastectomy) Past Social History Smoke: No Alcohol: none Lives: with Family Travel Hx EBOLA RISK:Travel to/contact w: No Is pt experiencing any Ebola s: No Review of Systems Constitutional: No: Fever, Chills Eyes: No: Vision change, Conjunctivae inflammation, Eyelid inflammation ENT: No: Nose discharge, Nose congestion Respiratory: No: Cough, Shortness of breath, SOB with excertion, Wheezing Cardiovascular: No: Chest Pain, Palpitations, Edema Gastrointestinal: No: Nausea, Vomiting, Abdominal Pain, Diarrhea, Constipation Genitourinary: No Hematuria, No Retention Musculoskeletal: back pain, leg pain, foot pain Skin: Bruising; No: Rash, Lesions, Jaundice Neurological: No: Weakness, Numbness, Incoordination, Change in speech, Confusion, Seizures Allergies: Coded Allergies: Penicillins (Verified Allergy, Intermediate, RASH, 12/15/12) morphine (Verified Allergy, Mild, 11/06/14) Sqekgkj-Lye-Rjr Reductase Inhibitor (Verified Allergy, Unknown, Hives, ) "FLU-LIKE SYMPTOMS" Scheduled Aspirin (Aspir 81), 1 TAB PO DAILY, (Reported) Esomeprazole Magnesium (Nexium), 1 CAP PO DAILY, (Reported) Metoprolol Succinate (Metoprolol Succinate), 1 TAB PO DAILY, (Reported) Pantoprazole Sodium (Protonix), 1 TAB PO DAILY, (Reported) Pravastatin Sodium (Pravastatin Sodium), 1 TAB PO HS, (Reported) Ramipril (Ramipril), 1 CAP PO BID, (Reported) Ramipril 5MG (Altace 5MG), 1 CAP PO DAILY, (Reported) Sertraline Hcl (Sertraline Hcl), 1 TAB PO HS, (Reported) VTE VTE Risk Total Score: 3 VTE Risk Score VTE Risk: Score 0-1 = Low Risk (Aggressive mobilization; early ambulation; no VTE prophylaxis required) Score 2: Moderate Risk (Intermittent/Pneumatic Compression Device OR Lovenox/Heparin/Coumadin) Score 3-4: High Risk (Intermittent/Pneumatic Compression Device AND Lovenox/Heparin/Coumadin) Score > or =5: Highest Risk (Intermittent/Pneumatic Compression Device AND Lovenox/Heparin/Coumadin) VTE VTE Present on Admission: No Currently receiving anticoagul: No VTE Risk Total Score: 3 Exam Vital Signs Vital Signs Date Time Temp Pulse Resp B/P (MAP) Pulse Ox O2 Delivery O2 Flow Rate FiO2 04/28/18 12:04 97.5 85 17 192/99 (130) 96 Room Air 97.5 General Appearance: Alert, Oriented X3, Cooperative, No acute distress HEENT: Atraumatic, PERRLA, EOMI, Mucous membr. moist/pink Respiratory: Clear to auscultation, Normal air movement Cardiovascular: Regular rate, Normal S1, Normal S2, No murmurs Abdominal: Normal bowel sounds, Soft, No tenderness Extremities: Other (right splint/dressing in place, bruising to left fifth metatarsal with tenderness/swelling) Skin: No rash, No breakdown, Other (hematoma left inner thigh, small) Neuro: Normal speech, Strength at 5/5 X4 ext, Normal tone, Sensation intact, Cranial nerves 3-12 NL Psych/Mental Status: Mental status NL, Mood NL Assessment/Plan Assessment/Plan Assessment/Plan Patient is a 77 F PMH of Sjogren's Syndrome, Paget's disease, breast cancer, HTN , HLD, presenting with mechanical fall this AM from her porch and found to have 5th left metatarsal fx and Right Patella fx. Patient History: Hypertension Plan 1. Right Patella Fx: Ortho to take to OR in AM. NPO after midnight. Cont pain control. 2. Left fifth Metatarsal fx: Ortho managing. 3. HTN: elevated 2/2 pain. Cont home medications. Hydralazine IV PRN. 4. Anxiety: cont SSRI 5. Sjogren's Syndrome: outpatient f/u 6. Paget's Disease: outpatient infusion q 3months 7. PPx: PPI MANJULA RODRIGUEZ MD Apr 28, 2018 17:22
[2018-04-28] MEDS ORDERED: APRESOLINE IV PRN (17:30)
[2018-04-28] MEDS: MOTRIN PO PRN (17:40)
--- NOTE | 2018-04-28 17:59 | HPH ---
ADMIT DATE: 04/28/2018 CHIEF COMPLAINT: Painful right knee. HISTORY OF PRESENT ILLNESS: The patient is a 77-year-old female, previous community ambulator without assistance, fell today at home, injuring the right knee. She was initially seen by Dr. Grande in the Emergency Room. His exam and x-rays revealed a closed displaced right patellar fracture. I was consulted for further evaluation and treatment. MEDICATION ALLERGIES: Include PENICILLIN, MORPHINE and STATINS. MEDICATIONS: Include Pravastatin, ramipril 5 mg once a day, metoprolol 50 mg once a day, Nexium 40 mg once a day. PAST SURGICAL HISTORY: Include cancer surgery, cholecystectomy. SOCIAL HISTORY: The patient lives in [place] with her . She does not smoke or drink. FAMILY HISTORY: Noncontributory. REVIEW OF SYSTEMS: Negative for chest pain, shortness of breath, nausea, vomiting, melena, hematochezia, dysuria, hematuria, fever, chills or weight loss. PHYSICAL EXAMINATION: GENERAL: Shows a healthy-appearing 77-year-old female, in no acute distress. HEENT: Within normal limits for her age. CHEST: Clear to auscultation bilaterally. HEART: Regular rate and rhythm. No murmurs. ABDOMEN: Soft, nontender, good bowel sounds. EXTREMITIES: The patient's right knee is swollen and slightly bruised anteriorly about the patella. There is decreased range of motion secondary to pain. She has no open wounds. She has good medial and lateral stability about the knee. The patient's right hip and the right ankle are nontender. NEUROLOGICAL: The patient is awake and alert. She is oriented x 3. Her cranial nerves 2-12 are grossly intact. She has good dorsi and plantar flexion of the right foot and ankle as well as the toes about the right foot. The patient has normal use of both upper extremities and her left lower extremity. IMAGING STUDIES: The patient's x-ray revealed a comminuted displaced mid substance fracture of the right patella. ASSESSMENT: Closed displaced right patellar fracture. PLAN: The patient will be placed in a compressive dressing and a knee immobilizer. She will be admitted at this time for elevation and pain control. She will be taken to the operating room for ORIF. The appropriate pain medication will be provided. I have the hospitalist evaluate her medically. ADDENDUM On further review of the patient's x-ray, she is also noted to have a nondisplaced fracture of the base of the left fifth metatarsal. Hank Alvarado MD DR: DARREN/millicent JOB# [id number]
[2018-04-28 20:00] VITALS: BP 141/69
[2018-04-28] MEDS: ALTACE PO SCH (21:44)
[2018-04-28] MEDS: DILAUDID IV PRN (21:55)
[2018-04-29] VITALS (18 sets, daily range): BP systolic 90–153; BP diastolic 51–74
[2018-04-29] MEDS: MOTRIN PO PRN ×2 (00:04→21:11)
[2018-04-29] MEDS: DILAUDID IV PRN (03:51)
[2018-04-29 05:20] LABS: BASOPHIL % 0.1 % (0.0-0.2); EOSINOPHIL # 0.1 10^3/uL (0.0-0.2); LYMPHOCYTES # 1.6 10^3/uL (1.0-4.8); LYMPHOCYTES % 22.2 % (24.0-44.0); MEAN CELL HGB 29.9 pg (26-34); MEAN CELL HGB CONCENTRATION 33.5 g/dL (33-37); MEAN CORP VOLUME 89.1 fL (78-100); MONOCYTES # 0.6 10^3/uL (0.3-0.8); MONOCYTES % 8.1 % (5.0-12.0); NEUTROPHILS % 68.5 % (41.0-85.0); RED CELL DISTRIBUTION WIDTH 13.1 % (11.5-14.5); WHITE BLOOD CELL 7.3 10^3/uL (4.5-11.0)
[2018-04-29] MEDS ORDERED: LACTATED RINGERS 1,000 ML ONE (05:32)
[2018-04-29 05:51] LABS: CALCIUM 8.6 mg/dL (8.4-10.5); CARBON DIOXIDE 24.5 mmol/L (20.0-32)
[2018-04-29] MEDS ORDERED: DECADRON ONE (06:56)
[2018-04-29] MEDS ORDERED: SENSORCAINE 0.5% VIAL ONE (06:56)
[2018-04-29] MEDS ORDERED: NAROPIN 0.2% 40 MG/20 ML VIAL ONE (06:57)
[2018-04-29] MEDS ORDERED: ZEMURON IV ONE (06:57)
[2018-04-29] MEDS ORDERED: LIDOCAINE 2% VIAL ONE (06:57)
[2018-04-29] MEDS ORDERED: PRECEDEX IV ONE (06:57)
[2018-04-29] MEDS ORDERED: ZOFRAN ONE (06:57)
[2018-04-29] MEDS ORDERED: NEOSTIGMINE ONE (06:57)
[2018-04-29] MEDS ORDERED: NS 1000ML 1,000 ML ONE (06:58)
[2018-04-29] MEDS ORDERED: SUBLIMAZE ONE (06:58)
[2018-04-29] MEDS ORDERED: NS 100ML 100 ML IV ONE (06:58)
[2018-04-29] MEDS ORDERED: DIPRIVAN IV ONE (06:58)
[2018-04-29] MEDS ORDERED: VERSED ONE (06:59)
[2018-04-29] MEDS ORDERED: SODIUM CHLORIDE IR ONE ×3 (07:15→09:42)
--- NOTE | 2018-04-29 07:30 | NUR ---
OFF THE FLOOR FOR OR, SBAR REPORT GIVEN OT OR NURSE SANTOSH RN.
[2018-04-29] MEDS ORDERED: NS 250ML 250 ML IV ONE ×2 (07:56→08:43)
[2018-04-29] MEDS ORDERED: VANCOMYCIN HCL 2 GM ONE (07:56)
[2018-04-29] MEDS ORDERED: NS IV ONE (08:00)
[2018-04-29] MEDS ORDERED: VANCOMYCIN IV ONE (08:00)
[2018-04-29] MEDS ORDERED: NEXIUM PO SCH (09:00)
[2018-04-29] MEDS: PROTONIX PO SCH (09:00)
[2018-04-29] MEDS ORDERED: ASPIRIN EC PO SCH (09:00)
[2018-04-29] MEDS ORDERED: TOPROL XL PO SCH (09:00)
[2018-04-29] MEDS ORDERED: DILAUDID IV PRN (11:00)
[2018-04-29] MEDS ORDERED: DEMEROL IV PRN (11:00)
[2018-04-29] MEDS ORDERED: ZOFRAN IV PRN (11:00)
[2018-04-29] MEDS ORDERED: CEPACOL SORE THROAT LOZENGE MM PRN (11:00)
--- NOTE | 2018-04-29 11:25 | DIREP ---
PROCEDURE:XRAY KNEE 2 VWS-RT COMPARISON:[facility], , XRAY KNEE 3 VIEWS-RT, 04/28/2018, 12:26 PM. INDICATIONS:postop FINDINGS: BONES:Interval reduction and internal fixation of previously noted patellar fracture. There are 2 orthopedic screws traversing the patella from an inferior to superior approach. Associated cerclage wires are noted. Alignment is improved from the previous study without significant residual distraction. JOINTS:Minimal narrowing of the medial and lateral femoral tibial compartment joint spaces without significant osteophyte formation. The patellofemoral compartment joint space appears relatively preserved. SOFT TISSUES:Diffuse soft tissue edema about the knee with associated suprapatellar joint effusion. Anterior skin ang noted. CONCLUSION: 1. Interval postoperative changes of open reduction internal fixation of previously noted patellar fracture as discussed above. Alignment is improved without significant residual distraction. Dictated by: Redd Villa M.D. On 04/29/2018 at 11:20 AM
[2018-04-29] MEDS: ALTACE PO SCH ×2 (11:30→21:10)
--- NOTE | 2018-04-29 11:30 | NUR ---
BACK TO FLOOR Pt BACK TO FLOOR FROM OR, REPORT RECEIVED FROM OR NURSE SANTOSH RN, DAMASO RN.
--- NOTE | 2018-04-29 11:50 | OPH ---
DATE OF SURGERY: 04/29/2018 PREOPERATIVE DIAGNOSIS: Closed displaced right patellar fracture. POSTOPERATIVE DIAGNOSIS: Closed displaced right patellar fracture. OPERATIVE PROCEDURE: Open reduction and internal fixation of right patellar fracture with two 4.0 cannulated Synthes screws as well as two 1.00 Synthes cables. SURGEON: Dr. Alvarado. ANESTHESIA: General endotracheal. TOURNIQUET TIME: 64 minutes at 300 mmHg. DRAINS: None. BLOOD LOSS: 30 mL. DESCRIPTION OF INDICATIONS: The patient is a 77-year-old female, previous community ambulator without assistance, fell at home yesterday and suffered a displaced closed right patellar fracture. The patient was taken to the operating room today for open reduction and internal fixation. DESCRIPTION OF PROCEDURE: The patient was placed in the operating table in the supine position. General endotracheal anesthetic was induced without difficulty. The patient had the right thigh padded and a tourniquet was applied. The right lower extremity was then sterilely prepped and draped. The leg was exsanguinated with an Esmarch and the tourniquet was inflated to 300 mmHg. An anterior incision was made about the knee. Incision was taken through the skin and subcutaneous tissues. The hematoma was removed and the hemarthrosis was irrigated and drained. The fracture was then reduced with 2 towel clip-like reduction clamps. The patient then had 2 guidewires placed from distal to proximal across the fracture site. AP and lateral C-arm views showed satisfactory positioning of the K wires and satisfactory reduction of the fracture. The patient then had the 4.0 cannulated screws placed over the wires and across the fracture site. Again, AP and lateral views showed satisfactory reduction of the fracture and satisfactory positioning of the hardware. The patient did have two Synthes 1.0 mm cables passed through the cannulated screws and over the anterior portion of the patella. They were then tightened and the clamps were tightened. Cables were then cut with the wire cutters. The final AP and lateral views showed satisfactory fracture reduction and satisfactory hardware position. The wounds were then irrigated. The retinacular tears were closed with a #1 Vicryl in interrupted [id number] manner. The subcutaneous was closed with a running 2-0 Monocryl barbed suture. The skin was closed with ang. A Prevena suction-type dressing was applied and it was reinforced with 4 x 4s, cast padding, and Willard wrap. The knee was placed in a dial lock knee brace locked in full extension. The patient had the tourniquet released. She was extubated in the operating room, sent to recovery in stable condition. Hank Alvarado MD DR: DARREN/millicent JOB# [id number]
[2018-04-29] MEDS: ULTRAM PO PRN ×3 (12:15→23:05)
[2018-04-29] MEDS: ZOLOFT PO SCH ×2 (13:08→21:12)
--- NOTE | 2018-04-29 13:30 | PRM.PN ---
Subjective Subjective Date: Apr 29, 2018 Time: 13:26 Subjective Patient had repair of right patella fx this AM. Pain controlled. Patient still drowsy from anesthesia, pain medications. No complaints. Patient History: Hypertension VTE VTE Risk Total Score: 3 VTE Risk Score VTE Risk: Score 0-1 = Low Risk (Aggressive mobilization; early ambulation; no VTE prophylaxis required) Score 2: Moderate Risk (Intermittent/Pneumatic Compression Device OR Lovenox/Heparin/Coumadin) Score 3-4: High Risk (Intermittent/Pneumatic Compression Device AND Lovenox/Heparin/Coumadin) Score > or =5: Highest Risk (Intermittent/Pneumatic Compression Device AND Lovenox/Heparin/Coumadin) Review of Systems Eyes: Eyelid inflammation Allergies: Coded Allergies: Penicillins (Verified Allergy, Intermediate, RASH, 12/15/12) morphine (Verified Allergy, Mild, 11/06/14) [id number]-Wat Reductase Inhibitor (Verified Allergy, Unknown, Hives, ) "FLU-LIKE SYMPTOMS" Scheduled Aspirin (Aspir 81), 1 TAB PO DAILY, (Reported) Esomeprazole Magnesium (Nexium), 1 CAP PO DAILY, (Reported) Metoprolol Succinate (Metoprolol Succinate), 1 TAB PO DAILY, (Reported) Pantoprazole Sodium (Protonix), 1 TAB PO DAILY, (Reported) Pravastatin Sodium (Pravastatin Sodium), 1 TAB PO HS, (Reported) Ramipril (Ramipril), 1 CAP PO BID, (Reported) Ramipril 5MG (Altace 5MG), 1 CAP PO DAILY, (Reported) Sertraline Hcl (Sertraline Hcl), 1 TAB PO HS, (Reported) Objective Vitals and I/O Vital Sign - Last 24 Hours 04/28/18 04/28/18 04/28/18 04/28/18 14:00 14:00 15:00 15:00 Pulse 73 70 Resp 17 17 18 18 B/P (MAP) 178/76 (110) 174/81 (112) Pulse Ox 96 98 04/28/18 04/28/18 04/28/18 04/28/18 16:00 16:00 17:11 20:00 Temp 97.2 97.2 Pulse 68 77 Resp 16 16 18 B/P (MAP) 144/71 (95) 141/69 (93) Pulse Ox 98 97 O2 Delivery Room Air O2 Flow Rate 2.00 04/28/18 04/28/18 04/29/18 04/29/18 21:44 23:24 00:22 03:39 Temp 97.8 97.2 97.8 97.2 Pulse 66 64 Resp 18 18 B/P (MAP) 144/71 109/58 (75) 108/58 (75) Pulse Ox 98 97 O2 Delivery Nasal Cannula O2 Flow Rate 2.00 04/29/18 04/29/18 04/29/18 04/29/18 08:05 08:10 08:18 10:43 Temp 98.9 98.9 Pulse 75 74 72 89 Resp 19 19 19 18 B/P (MAP) 138/62 (87) 153/71 (98) 96/61 (73) 132/55 (80) Pulse Ox 100 100 100 100 O2 Delivery Room Air Room Air Room Air Non-Rebreather O2 Flow Rate 10 04/29/18 04/29/18 04/29/18 10:58 11:13 11:30 Temp 97.8 98.1 97.8 98.1 Pulse 84 80 Resp 18 18 B/P (MAP) 127/67 (87) 115/58 (77) 115/58 Pulse Ox 94 96 O2 Delivery Nasal Canula Nasal Canula O2 Flow Rate 2 2 Intake and Output 04/28/18 04/28/18 04/29/18 15:01 23:01 07:01 Intake Total 540 ml 220 ml Output Total 300 ml 850 ml 150 ml Balance -300 ml -310 ml 70 ml General: Alert, Oriented X3, Cooperative, No acute distress HEENT: Atraumatic, PERRLA, EOMI, Mucous membr. moist/pink Neck: Supple, No JVD Lungs: Clear to auscultation, Normal air movement Heart: Regular rate, Normal S1, Normal S2, No murmurs Abdomen: Normal bowel sounds, Soft, No tenderness Extremities: Other (right splint/dressing in place right leg) Neuro: Normal speech, Strength at 5/5 X4 ext, Normal tone, Sensation intact, Cranial nerves 3-12 NL Psych/Mental Status: Mental status NL, Mood NL All Results(Lab/Rad) Laboratory Tests Test 04/29/18 04:56 White Blood Count 7.3 10^3/uL Red Blood Count 4.02 10^6/uL Hemoglobin 12.0 g/dL Hematocrit 35.8 % Mean Corpuscular Volume 89.1 fL Mean Corpuscular Hemoglobin 29.9 pg Mean Corpuscular Hemoglobin Concent 33.5 g/dL Red Cell Distribution Width 13.1 % Platelet Count 152 10^3/uL Mean Platelet Volume 10.0 fL Neutrophils (%) (Auto) 68.5 % Lymphocytes (%) (Auto) 22.2 % Monocytes (%) (Auto) 8.1 % Neutrophils # (Auto) 5.0 10^3/uL Lymphocytes # (Auto) 1.6 10^3/uL Monocytes # (Auto) 0.6 10^3/uL Absolute Immature Granulocyte (auto 0.01 10^3 u/L Eosinophils % 1.0 % Basophils % 0.1 % Basophils # 0.0 10^3/uL Eosinophil Count 0.1 10^3/uL Sodium Level 140 mmol/L Potassium Level 4.3 mmol/L Chloride Level 106.0 mmol/L Carbon Dioxide Level 24.5 mmol/L Anion Gap 13.8 Blood Urea Nitrogen 17 mg/dL Creatinine 1.32 mg/dL Estimated GFR () 47.0 BUN/Creatinine Ratio 12.0 Glucose Level 120 mg/dL Calcium Level 8.6 mg/dL Total Bilirubin 0.7 mg/dL Aspartate Amino Transf (AST/SGOT) 55 U/L Alanine Aminotransferase (ALT/SGPT) 35 U/L Alkaline Phosphatase 87 U/L Total Protein 6.5 g/dL Albumin 3.3 g/dL Globulin 3.2 Percent Immature Gran (Cell Imm) 0.10 % Current Medications Medications (Trade) Dose Ordered Sig/Bee Route PRN Reason Start Time Stop Time Status Last Admin Dose Admin Meperidine HCl (Demerol) 50 mg STAT STAT IV 04/28/18 13:56 04/29/18 11:00 DC 04/28/18 15:45 Ondansetron HCl (Zofran) 4 mg STAT STAT IV 04/28/18 13:56 04/28/18 17:20 DC 04/28/18 15:43 Potassium Chloride/Dextrose/ Sod Cl 1,000 ml @ 100 mls/hr Q10H STAT IV 04/28/18 15:04 04/29/18 01:03 DC 04/28/18 15:46 Hydromorphone HCl (Dilaudid) 1 mg Q4H PRN IV PAIN 8-10 04/28/18 15:30 04/29/18 11:00 DC 04/29/18 03:51 Ondansetron HCl (Zofran) 4 mg Q4H PRN IV NAUSEA / VOMITING 04/28/18 15:30 05/28/18 15:29 Ondansetron HCl (Zofran) 4 mg STK-MED ONCE .ROUTE 04/28/18 15:27 04/28/18 15:31 DC Meperidine HCl (Demerol) 50 mg STK-MED ONCE .ROUTE 04/28/18 15:28 04/28/18 15:31 DC Potassium Chloride/Dextrose/ Sod Cl 1,000 ml @ ud STK-MED ONCE .ROUTE 04/28/18 15:28 04/28/18 15:32 DC Aspirin (Aspirin Ec) 81 mg DAILY PO 04/29/18 09:00 04/29/18 09:00 DC Esomeprazole Magnesium (Nexium) 40 mg DAILY PO 04/29/18 09:00 04/29/18 09:00 DC Metoprolol Succinate (Toprol Xl) 50 mg DAILY PO 04/29/18 09:00 04/29/18 09:00 DC Pantoprazole Sodium (Protonix) 40 mg DAILY PO 04/29/18 09:00 05/29/18 08:59 Ramipril (Altace) 5 mg BID PO 04/28/18 21:00 05/28/18 20:59 04/28/18 21:44 Sertraline HCl (Zoloft) 100 mg HS PO 04/28/18 21:00 05/28/18 20:59 Hydralazine HCl (Apresoline) 10 mg Q4HR PRN IV HYPERTENSION 04/28/18 17:30 05/28/18 17:29 Ibuprofen (Motrin) 800 mg Q6H PRN PO PAIN 04/28/18 17:30 05/28/18 17:29 04/29/18 00:04 Dexamethasone Sodium Phosphate (Decadron) 20 mg STK-MED ONCE .ROUTE 04/29/18 06:56 04/29/18 07:00 DC Bupivacaine HCl (Sensorcaine 0.5% Vial) 5 mg STK-MED ONCE .ROUTE 04/29/18 06:56 04/29/18 07:00 DC Ropivacaine (Naropin 0.2% 40 Mg/20 ml Vial) 2 mg STK-MED ONCE .ROUTE 04/29/18 06:57 04/29/18 07:00 DC Lidocaine HCl (Lidocaine 2% Vial) 500 mg STK-MED ONCE .ROUTE 04/29/18 06:57 04/29/18 07:00 DC Neostigmine Methylsulfate (Neostigmine) 10 mg STK-MED ONCE .ROUTE 04/29/18 06:57 04/29/18 07:00 DC Dexmedetomidine HCl (Precedex) 200 mcg STK-MED ONCE IV 04/29/18 06:57 04/29/18 07:00 DC Ondansetron HCl (Zofran) 4 mg STK-MED ONCE .ROUTE 04/29/18 06:57 04/29/18 07:01 DC Rocuronium [place] (Zemuron) 100 mg STK-MED ONCE IV 04/29/18 06:57 04/29/18 07:01 DC Fentanyl Citrate (Sublimaze) 100 mcg STK-MED ONCE .ROUTE 04/29/18 06:58 04/29/18 07:01 DC Propofol (Diprivan) 200 mg STK-MED ONCE IV 04/29/18 06:58 04/29/18 07:01 DC Sodium Chloride 1,000 ml @ ud STK-MED ONCE .ROUTE 04/29/18 06:58 04/29/18 07:02 DC Sodium Chloride 100 ml @ ud STK-MED ONCE IV 04/29/18 06:58 04/29/18 07:02 DC Midazolam HCl (Versed) 1 mg STK-MED ONCE .ROUTE 04/29/18 06:59 04/29/18 07:03 DC Sodium Chloride (Sodium Chloride) 1,000 ml STK-MED ONCE IR 04/29/18 07:15 04/29/18 07:19 DC Vancomycin HCl 1500 mg/Sodium Chloride 500 ml @ 500 mls/hr OT ONCE IV 04/29/18 08:00 04/29/18 08:59 DC Vancomycin HCl 2 ml @ ud STK-MED ONCE .ROUTE 04/29/18 07:56 04/29/18 08:00 DC Sodium Chloride 250 ml @ ud STK-MED ONCE IV 04/29/18 07:56 04/29/18 08:00 DC Sodium Chloride (Sodium Chloride) 1,000 ml STK-MED ONCE IR 04/29/18 08:34 04/29/18 08:38 DC Sodium Chloride 250 ml @ ud STK-MED ONCE IV 04/29/18 08:43 04/29/18 08:46 DC Sodium Chloride (Sodium Chloride) 1,000 ml STK-MED ONCE IR 04/29/18 09:42 04/29/18 09:46 DC Tramadol HCl (Ultram) 50 mg Q6H PRN PO MILD PAIN 04/29/18 11:00 05/29/18 10:59 Tramadol HCl (Ultram) 100 mg Q6H PRN PO SEVERE PAIN 04/29/18 11:00 05/29/18 10:59 04/29/18 12:15 Docusate Sodium (Colace) 100 mg DAILY PO 04/30/18 09:00 05/30/18 08:59 Throat Lozenges (Cepacol Sore Throat Lozenge) 1 each PRN PRN MM SORE THROAT 04/29/18 11:00 05/29/18 10:59 Famotidine (Pepcid) 20 mg DAILY PO 04/30/18 09:00 05/30/18 08:59 Vancomycin HCl 1.5 gm/Sodium Chloride 500 ml @ 200 mls/hr Q12H IV 04/29/18 21:00 04/30/18 20:59 Aspirin (Aspirin Ec) 81 mg BID PO 04/29/18 21:00 05/29/18 20:59 Meperidine HCl (Demerol) 50 mg Q4HR PRN IV PAIN 04/29/18 11:00 04/29/18 11:00 DC Hydromorphone HCl (Dilaudid) 0.2 mg Q5MIN PRN IV PAIN MILD 04/29/18 11:00 04/30/18 10:59 UNV Ondansetron HCl (Zofran) 4 mg PRN PRN IV nv 04/29/18 11:00 05/04/18 10:59 UNV Course Sepsis Screening Results: Posi: NEGATIVE Sepsis Qualifier/Stage: NO DEFINITE RISK Duration or Total Time Spent w: 90 mins Vitals & review Data Vital Sign - Last 24 Hours 04/28/18 04/28/18 04/28/18 04/28/18 14:00 14:00 15:00 15:00 Pulse 73 70 Resp 17 17 18 18 B/P (MAP) 178/76 (110) 174/81 (112) Pulse Ox 96 98 04/28/18 04/28/18 04/28/18 04/28/18 16:00 16:00 17:11 20:00 Temp 97.2 97.2 Pulse 68 77 Resp 16 16 18 B/P (MAP) 144/71 (95) 141/69 (93) Pulse Ox 98 97 O2 Delivery Room Air O2 Flow Rate 2.00 04/28/18 04/28/18 04/29/18 04/29/18 21:44 23:24 00:22 03:39 Temp 97.8 97.2 97.8 97.2 Pulse 66 64 Resp 18 18 B/P (MAP) 144/71 109/58 (75) 108/58 (75) Pulse Ox 98 97 O2 Delivery Nasal Cannula O2 Flow Rate 2.00 04/29/18 04/29/18 04/29/18 04/29/18 08:05 08:10 08:18 10:43 Temp 98.9 98.9 Pulse 75 74 72 89 Resp 19 19 19 18 B/P (MAP) 138/62 (87) 153/71 (98) 96/61 (73) 132/55 (80) Pulse Ox 100 100 100 100 O2 Delivery Room Air Room Air Room Air Non-Rebreather O2 Flow Rate 10 04/29/18 04/29/18 04/29/18 10:58 11:13 11:30 Temp 97.8 98.1 97.8 98.1 Pulse 84 80 Resp 18 18 B/P (MAP) 127/67 (87) 115/58 (77) 115/58 Pulse Ox 94 96 O2 Delivery Nasal Canula Nasal Canula O2 Flow Rate 2 2 Intake and Output 04/28/18 04/28/18 04/29/18 15:01 23:01 07:01 Intake Total 540 ml 220 ml Output Total 300 ml 850 ml 150 ml Balance -300 ml -310 ml 70 ml Laboratory Tests Test 04/28/18 11:40 04/29/18 04:56 White Blood Count 5.1 10^3/uL 7.3 10^3/uL Red Blood Count 4.33 10^6/uL 4.02 10^6/uL Hemoglobin 12.9 g/dL 12.0 g/dL Hematocrit 37.7 % 35.8 % Mean Corpuscular Volume 87.1 fL 89.1 fL Mean Corpuscular Hemoglobin 29.8 pg 29.9 pg Mean Corpuscular Hemoglobin Concent 34.2 g/dL 33.5 g/dL Red Cell Distribution Width 13.1 % 13.1 % Platelet Count 135 10^3/uL 152 10^3/uL Mean Platelet Volume 9.7 fL 10.0 fL Neutrophils (%) (Auto) 69.0 % 68.5 % Lymphocytes (%) (Auto) 23.1 % 22.2 % Monocytes (%) (Auto) 6.3 % 8.1 % Neutrophils # (Auto) 3.5 10^3/uL 5.0 10^3/uL Lymphocytes # (Auto) 1.2 10^3/uL 1.6 10^3/uL Monocytes # (Auto) 0.3 10^3/uL 0.6 10^3/uL Absolute Immature Granulocyte (auto 0.02 10^3 u/L 0.01 10^3 u/L Eosinophils % 1.0 % 1.0 % Basophils % 0.2 % 0.1 % Basophils # 0.0 10^3/uL 0.0 10^3/uL Eosinophil Count 0.1 10^3/uL 0.1 10^3/uL Prothrombin Time 10.2 SEC Prothrombin Time INR (Non-Therap) 1.0 Activated Partial Thromboplast Time 21.5 SEC Sodium Level 141 mmol/L 140 mmol/L Potassium Level 3.9 mmol/L 4.3 mmol/L Chloride Level 105.0 mmol/L 106.0 mmol/L Carbon Dioxide Level 26.8 mmol/L 24.5 mmol/L Anion Gap 13.1 13.8 Blood Urea Nitrogen 15 mg/dL 17 mg/dL Creatinine 1.08 mg/dL 1.32 mg/dL Estimated GFR () 59.2 47.0 BUN/Creatinine Ratio 13.0 12.0 Glucose Level 106 mg/dL 120 mg/dL Calcium Level 8.7 mg/dL 8.6 mg/dL Total Bilirubin 0.7 mg/dL 0.7 mg/dL Aspartate Amino Transf (AST/SGOT) 24 U/L 55 U/L Alanine Aminotransferase (ALT/SGPT) 23 U/L 35 U/L Alkaline Phosphatase 85 U/L 87 U/L Troponin I < 0.02 ng/mL Total Protein 7.2 g/dL 6.5 g/dL Albumin 3.8 g/dL 3.3 g/dL Globulin 3.4 3.2 Percent Immature Gran (Cell Imm) 0.40 % 0.10 % Current Medications Medications (Trade) Dose Ordered Sig/Bee PRN Reason Start Time Stop Time Status Last Admin Aspirin (Aspirin Ec) 81 mg BID 04/29/18 21:00 05/29/18 20:59 Docusate Sodium (Colace) 100 mg DAILY 04/30/18 09:00 05/30/18 08:59 Famotidine (Pepcid) 20 mg DAILY 04/30/18 09:00 05/30/18 08:59 Hydralazine HCl (Apresoline) 10 mg Q4HR PRN HYPERTENSION 04/28/18 17:30 05/28/18 17:29 Hydromorphone HCl (Dilaudid) 0.2 mg Q5MIN PRN PAIN MILD 04/29/18 11:00 04/30/18 10:59 UNV Ibuprofen (Motrin) 800 mg Q6H PRN PAIN 04/28/18 17:30 05/28/18 17:29 04/29/18 00:04 Ondansetron HCl (Zofran) 4 mg PRN PRN nv 04/29/18 11:00 05/04/18 10:59 UNV Ondansetron HCl (Zofran) 4 mg Q4H PRN NAUSEA / VOMITING 04/28/18 15:30 05/28/18 15:29 Pantoprazole Sodium (Protonix) 40 mg DAILY 04/29/18 09:00 05/29/18 08:59 Ramipril (Altace) 5 mg BID 04/28/18 21:00 05/28/18 20:59 04/28/18 21:44 Sertraline HCl (Zoloft) 100 mg HS 04/28/18 21:00 05/28/18 20:59 Throat Lozenges (Cepacol Sore Throat Lozenge) 1 each PRN PRN SORE THROAT 04/29/18 11:00 05/29/18 10:59 Tramadol HCl (Ultram) 50 mg Q6H PRN MILD PAIN 04/29/18 11:00 05/29/18 10:59 Tramadol HCl (Ultram) 100 mg Q6H PRN SEVERE PAIN 04/29/18 11:00 05/29/18 10:59 04/29/18 12:15 Vancomycin HCl 1.5 gm/Sodium Chloride 500 ml @ 200 mls/hr Q12H 04/29/18 21:00 04/30/18 20:59 Sepsis Infection Criteria Pres: None LEVEL 1 SEPSIS INFECTION CRITE: None/Not assessed LEVEL 2-SIRS (LIST ALL THAT AP: None/Not assessed Cardiovascular Evidence: Not Assessed or None Hematologic Evidence: None/Not assessed Hepatic Evidence: None/Not assessed Metabolic Evidence: None/Not assessed Neurological Evidence: None/Not assessed Respiratory Evidence: None/Not assessed Renal Evidence: None/Not assessed O2 Sat by Pulse Oximetry: 96 Oxygen Flow Rate: 2 Assessment/Plan Assessment/Plan Assessment/Plan Patient is a 77 F PMH of Sjogren's Syndrome, Paget's disease, breast cancer, HTN , HLD, presenting with mechanical fall this AM from her porch and found to have 5th left metatarsal fx and Right Patella fx. Plan 1. Right Patella Fx: s/p repair this AM. Cont pain control. PT/OT. 2. Left fifth Metatarsal fx: Ortho managing. 3. HTN: cont home meds, good control 4. Anxiety: cont SSRI 5. Sjogren's Syndrome: outpatient f/u 6. Paget's Disease: outpatient infusion q 3months 7. PPx: PPI MANJULA RODRIGUEZ MD Apr 29, 2018 13:30
--- NOTE | 2018-04-29 15:00 | NUR ---
DISCHARGE PLAN CASE MANAGEMENT VISITED WITH PATIENT AND FAMILY CONCERNING DISCHARGE PLAN AND NEEDS. LIVES AT HOME WITH . DOES NOT HAVE ANY DME. DENIES NEED FOR HOME OXYGEN. PATIENT REQUESTED [facility]. PATIENT ALSO REQUESTED [facility] TO FOLLOW. CHOICE LETTER SIGNED AND PLACED ON CHART. CM CONTACTED BIBI WITH [facility] ABOUT [facility]. ALSO CONTACTED SAMANTHA WITH [facility] ABOUT REFERRAL. DISCHARGE GOAL IS TO DISCHARGE HOME WITH [facility] TO FOLLOW. DENIES FURTHER NEEDS AT THIS TIME. IS AWARE HE NEEDS TO [employer]CH[employer] WALK[facility] AND [facility] FROM [facility].
[2018-04-29] MEDS: LACTATED RINGERS 1,000 ML IV SCH (17:47)
--- NOTE | 2018-04-29 19:29 | NUR ---
report received repoert from offgoing shift
--- NOTE | 2018-04-29 19:39 | NUR ---
BEDSIDE REPORT BEDSIDE REPORT GIVEN TO NIGHT NURSE DIANNA PEREIRA.
[2018-04-29] MEDS: VANCOMYCIN HCL 1.5 GM in NS 500ML 500 ML IV SCH (21:09)
[2018-04-29] MEDS: ASPIRIN EC PO SCH (21:10)
[2018-04-30] MEDS ORDERED: NORCO 10MG PO ONE (00:30)
[2018-04-30] MEDS: ULTRAM PO PRN ×5 (02:56→18:45)
[2018-04-30 03:53] VITALS: BP 139/66
[2018-04-30] MEDS: LACTATED RINGERS 1,000 ML IV SCH (05:33)
[2018-04-30 06:14] LABS: HEMOGLOBIN 10.3 g/dL (12.0-15.0); MEAN CELL HGB 29.3 pg (26-34); MEAN CELL HGB CONCENTRATION 33.2 g/dL (33-37); MEAN CORP VOLUME 88.1 fL (78-100); RED CELL DISTRIBUTION WIDTH 12.8 % (11.5-14.5); WHITE BLOOD CELL 7.7 10^3/uL (4.5-11.0)
--- NOTE | 2018-04-30 06:38 | NUR ---
REPORT REPORT GIVEN TO O/C SHIFT
[2018-04-30 07:20] VITALS: BP 111/55
[2018-04-30] MEDS: ASPIRIN EC PO SCH ×2 (08:15→21:25)
[2018-04-30] MEDS: PEPCID PO SCH (08:15)
[2018-04-30] MEDS: COLACE PO SCH (08:16)
[2018-04-30] MEDS: PROTONIX PO SCH (08:16)
[2018-04-30] MEDS: ALTACE PO SCH ×2 (09:00→21:00)
--- NOTE | 2018-04-30 09:12 | NUR ---
BP 111/55 ALTACE 5 MG HELD NOTIFIED Pt, Pt VERBALIZED UNDERSTANDING.
[2018-04-30] MEDS: VANCOMYCIN HCL 1.5 GM in NS 500ML 500 ML IV SCH (09:17)
--- NOTE | 2018-04-30 09:46 | PRM.PN ---
Subjective Subjective Date: Apr 30, 2018 Time: 09:43 Subjective Patient had repair of right patella fx this AM. Pain controlled. Patient still drowsy from anesthesia, pain medications. No complaints. Awake and Alert VSS Pain ok NVM+ Up in chair with PT Stable Some pain during the night VSS HGB 10 postop anemia from surgery expected Cont with PT Patient History: Hypertension VTE VTE Risk Total Score: 3 VTE Risk Score VTE Risk: Score 0-1 = Low Risk (Aggressive mobilization; early ambulation; no VTE prophylaxis required) Score 2: Moderate Risk (Intermittent/Pneumatic Compression Device OR Lovenox/Heparin/Coumadin) Score 3-4: High Risk (Intermittent/Pneumatic Compression Device AND Lovenox/Heparin/Coumadin) Score > or =5: Highest Risk (Intermittent/Pneumatic Compression Device AND Lovenox/Heparin/Coumadin) Review of Systems Eyes: Eyelid inflammation Allergies: Coded Allergies: Penicillins (Verified Allergy, Intermediate, RASH, 12/15/12) morphine (Verified Allergy, Mild, 11/06/14) Xsjrnqt-Oqs-Art Reductase Inhibitor (Verified Allergy, Unknown, Hives, ) "FLU-LIKE SYMPTOMS" Scheduled Aspirin (Aspir 81), 1 TAB PO DAILY, (Reported) Esomeprazole Magnesium (Nexium), 1 CAP PO DAILY, (Reported) Metoprolol Succinate (Metoprolol Succinate), 1 TAB PO DAILY, (Reported) Pantoprazole Sodium (Protonix), 1 TAB PO DAILY, (Reported) Pravastatin Sodium (Pravastatin Sodium), 1 TAB PO HS, (Reported) Ramipril (Ramipril), 1 CAP PO BID, (Reported) Ramipril 5MG (Altace 5MG), 1 CAP PO DAILY, (Reported) Sertraline Hcl (Sertraline Hcl), 1 TAB PO HS, (Reported) Objective Vitals and I/O Vital Sign - Last 24 Hours 04/28/18 04/28/18 04/28/18 04/28/18 14:00 14:00 15:00 15:00 Pulse 73 70 Resp 17 17 18 18 B/P (MAP) 178/76 (110) 174/81 (112) Pulse Ox 96 98 04/28/18 04/28/18 04/28/18 04/28/18 16:00 16:00 17:11 20:00 Temp 97.2 97.2 Pulse 68 77 Resp 16 16 18 B/P (MAP) 144/71 (95) 141/69 (93) Pulse Ox 98 97 O2 Delivery Room Air O2 Flow Rate 2.00 04/28/18 04/28/18 04/29/18 04/29/18 21:44 23:24 00:22 03:39 Temp 97.8 97.2 97.8 97.2 Pulse 66 64 Resp 18 18 B/P (MAP) 144/71 109/58 (75) 108/58 (75) Pulse Ox 98 97 O2 Delivery Nasal Cannula O2 Flow Rate 2.00 04/29/18 04/29/18 04/29/18 04/29/18 08:05 08:10 08:18 10:43 Temp 98.9 98.9 Pulse 75 74 72 89 Resp 19 19 18 B/P (MAP) 138/62 (87) 153/71 (98) 96/61 (73) 132/55 (80) Pulse Ox 100 100 100 100 O2 Delivery Room Air Room Air Room Air Non-Rebreather O2 Flow Rate 10 04/29/18 04/29/18 04/29/18 10:58 11:13 11:30 Temp 97.8 98.1 97.8 98.1 Pulse 84 80 Resp 18 18 B/P (MAP) 127/67 (87) 115/58 (77) 115/58 Pulse Ox 94 96 O2 Delivery Nasal Canula Nasal Canula O2 Flow Rate 2 2 Intake and Output 04/28/18 04/28/18 04/29/18 15:01 23:01 07:01 Intake Total 540 ml 220 ml Output Total 300 ml 850 ml 150 ml Balance -300 ml -310 ml 70 ml General: Alert, Oriented X3, Cooperative, No acute distress HEENT: Atraumatic, PERRLA, EOMI, Mucous membr. moist/pink Neck: Supple, No JVD Lungs: Clear to auscultation, Normal air movement Heart: Regular rate, Normal S1, Normal S2, No murmurs Abdomen: Normal bowel sounds, Soft, No tenderness Extremities: Other (right splint/dressing in place right leg) Neuro: Normal speech, Strength at 5/5 X4 ext, Normal tone, Sensation intact, Cranial nerves 3-12 NL Psych/Mental Status: Mental status NL, Mood NL All Results(Lab/Rad) Laboratory Tests Test 04/29/18 04:56 White Blood Count 7.3 10^3/uL Red Blood Count 4.02 10^6/uL Hemoglobin 12.0 g/dL Hematocrit 35.8 % Mean Corpuscular Volume 89.1 fL Mean Corpuscular Hemoglobin 29.9 pg Mean Corpuscular Hemoglobin Concent 33.5 g/dL Red Cell Distribution Width 13.1 % Platelet Count 152 10^3/uL Mean Platelet Volume 10.0 fL Neutrophils (%) (Auto) 68.5 % Lymphocytes (%) (Auto) 22.2 % Monocytes (%) (Auto) 8.1 % Neutrophils # (Auto) 5.0 10^3/uL Lymphocytes # (Auto) 1.6 10^3/uL Monocytes # (Auto) 0.6 10^3/uL Absolute Immature Granulocyte (auto 0.01 10^3 u/L Eosinophils % 1.0 % Basophils % 0.1 % Basophils # 0.0 10^3/uL Eosinophil Count 0.1 10^3/uL Sodium Level 140 mmol/L Potassium Level 4.3 mmol/L Chloride Level 106.0 mmol/L Carbon Dioxide Level 24.5 mmol/L Anion Gap 13.8 Blood Urea Nitrogen 17 mg/dL Creatinine 1.32 mg/dL Estimated GFR () 47.0 BUN/Creatinine Ratio 12.0 Glucose Level 120 mg/dL Calcium Level 8.6 mg/dL Total Bilirubin 0.7 mg/dL Aspartate Amino Transf (AST/SGOT) 55 U/L Alanine Aminotransferase (ALT/SGPT) 35 U/L Alkaline Phosphatase 87 U/L Total Protein 6.5 g/dL Albumin 3.3 g/dL Globulin 3.2 Percent Immature Gran (Cell Imm) 0.10 % Current Medications Medications (Trade) Dose Ordered Sig/Bee Route PRN Reason Start Time Stop Time Status Last Admin Dose Admin Meperidine HCl (Demerol) 50 mg STAT STAT IV 04/28/18 13:56 04/29/18 11:00 DC 04/28/18 15:45 Ondansetron HCl (Zofran) 4 mg STAT STAT IV 04/28/18 13:56 04/28/18 17:20 DC 04/28/18 15:43 Potassium Chloride/Dextrose/ Sod Cl 1,000 ml @ 100 mls/hr Q10H STAT IV 04/28/18 15:04 04/29/18 01:03 DC 04/28/18 15:46 Hydromorphone HCl (Dilaudid) 1 mg Q4H PRN IV PAIN 8-10 04/28/18 15:30 04/29/18 11:00 DC 04/29/18 03:51 Ondansetron HCl (Zofran) 4 mg Q4H PRN IV NAUSEA / VOMITING 04/28/18 15:30 05/28/18 15:29 Ondansetron HCl (Zofran) 4 mg STK-MED ONCE .ROUTE 04/28/18 15:27 04/28/18 15:31 DC Meperidine HCl (Demerol) 50 mg STK-MED ONCE .ROUTE 04/28/18 15:28 04/28/18 15:31 DC Potassium Chloride/Dextrose/ Sod Cl 1,000 ml @ ud STK-MED ONCE .ROUTE 04/28/18 15:28 04/28/18 15:32 DC Aspirin (Aspirin Ec) 81 mg DAILY PO 04/29/18 09:00 04/29/18 09:00 DC Esomeprazole Magnesium (Nexium) 40 mg DAILY PO 04/29/18 09:00 04/29/18 09:00 DC Metoprolol Succinate (Toprol Xl) 50 mg DAILY PO 04/29/18 09:00 04/29/18 09:00 DC Pantoprazole Sodium (Protonix) 40 mg DAILY PO 04/29/18 09:00 05/29/18 08:59 Ramipril (Altace) 5 mg BID PO 04/28/18 21:00 05/28/18 20:59 04/28/18 21:44 Sertraline HCl (Zoloft) 100 mg HS PO 04/28/18 21:00 05/28/18 20:59 Hydralazine HCl (Apresoline) 10 mg Q4HR PRN IV HYPERTENSION 04/28/18 17:30 05/28/18 17:29 Ibuprofen (Motrin) 800 mg Q6H PRN PO PAIN 04/28/18 17:30 05/28/18 17:29 04/29/18 00:04 Dexamethasone Sodium Phosphate (Decadron) 20 mg STK-MED ONCE .ROUTE 04/29/18 06:56 04/29/18 07:00 DC Bupivacaine HCl (Sensorcaine 0.5% Vial) 5 mg STK-MED ONCE .ROUTE 04/29/18 06:56 04/29/18 07:00 DC Ropivacaine (Naropin 0.2% 40 Mg/20 ml Vial) 2 mg STK-MED ONCE .ROUTE 04/29/18 06:57 04/29/18 07:00 DC Lidocaine HCl (Lidocaine 2% Vial) 500 mg STK-MED ONCE .ROUTE 04/29/18 06:57 04/29/18 07:00 DC Neostigmine Methylsulfate (Neostigmine) 10 mg STK-MED ONCE .ROUTE 04/29/18 06:57 04/29/18 07:00 DC Dexmedetomidine HCl (Precedex) 200 mcg STK-MED ONCE IV 04/29/18 06:57 04/29/18 07:00 DC Ondansetron HCl (Zofran) 4 mg STK-MED ONCE .ROUTE 04/29/18 06:57 04/29/18 07:01 DC Rocuronium [place] (Zemuron) 100 mg STK-MED ONCE IV 04/29/18 06:57 04/29/18 07:01 DC Fentanyl Citrate (Sublimaze) 100 mcg STK-MED ONCE .ROUTE 04/29/18 06:58 04/29/18 07:01 DC Propofol (Diprivan) 200 mg STK-MED ONCE IV 04/29/18 06:58 04/29/18 07:01 DC Sodium Chloride 1,000 ml @ ud STK-MED ONCE .ROUTE 04/29/18 06:58 04/29/18 07:02 DC Sodium Chloride 100 ml @ ud STK-MED ONCE IV 04/29/18 06:58 04/29/18 07:02 DC Midazolam HCl (Versed) 1 mg STK-MED ONCE .ROUTE 04/29/18 06:59 04/29/18 07:03 DC Sodium Chloride (Sodium Chloride) 1,000 ml STK-MED ONCE IR 04/29/18 07:15 04/29/18 07:19 DC Vancomycin HCl 1500 mg/Sodium Chloride 500 ml @ 500 mls/hr OT ONCE IV 04/29/18 08:00 04/29/18 08:59 DC Vancomycin HCl 2 ml @ ud STK-MED ONCE .ROUTE 04/29/18 07:56 04/29/18 08:00 DC Sodium Chloride 250 ml @ ud STK-MED ONCE IV 04/29/18 07:56 04/29/18 08:00 DC Sodium Chloride (Sodium Chloride) 1,000 ml STK-MED ONCE IR 04/29/18 08:34 04/29/18 08:38 DC Sodium Chloride 250 ml @ ud STK-MED ONCE IV 04/29/18 08:43 04/29/18 08:46 DC Sodium Chloride (Sodium Chloride) 1,000 ml STK-MED ONCE IR 04/29/18 09:42 04/29/18 09:46 DC Tramadol HCl (Ultram) 50 mg Q6H PRN PO MILD PAIN 04/29/18 11:00 05/29/18 10:59 Tramadol HCl (Ultram) 100 mg Q6H PRN PO SEVERE PAIN 04/29/18 11:00 05/29/18 10:59 04/29/18 12:15 Docusate Sodium (Colace) 100 mg DAILY PO 04/30/18 09:00 05/30/18 08:59 Throat Lozenges (Cepacol Sore Throat Lozenge) 1 each PRN PRN MM SORE THROAT 04/29/18 11:00 05/29/18 10:59 Famotidine (Pepcid) 20 mg DAILY PO 04/30/18 09:00 05/30/18 08:59 Vancomycin HCl 1.5 gm/Sodium Chloride 500 ml @ 200 mls/hr Q12H IV 04/29/18 21:00 04/30/18 20:59 Aspirin (Aspirin Ec) 81 mg BID PO 04/29/18 21:00 05/29/18 20:59 Meperidine HCl (Demerol) 50 mg Q4HR PRN IV PAIN 04/29/18 11:00 04/29/18 11:00 DC Hydromorphone HCl (Dilaudid) 0.2 mg Q5MIN PRN IV PAIN MILD 04/29/18 11:00 04/30/18 10:59 UNV Ondansetron HCl (Zofran) 4 mg PRN PRN IV nv 04/29/18 11:00 05/04/18 10:59 UNV Course Sepsis Screening Results: Posi: NEGATIVE Sepsis Qualifier/Stage: NO DEFINITE RISK Duration or Total Time Spent w: 90 mins Vitals & review Data Vital Sign - Last 24 Hours 04/28/18 04/28/18 04/28/18 04/28/18 14:00 14:00 15:00 15:00 Pulse 73 70 Resp 17 17 18 18 B/P (MAP) 178/76 (110) 174/81 (112) Pulse Ox 96 98 04/28/18 04/28/18 04/28/18 04/28/18 16:00 16:00 17:11 20:00 Temp 97.2 97.2 Pulse 68 77 Resp 16 16 18 B/P (MAP) 144/71 (95) 141/69 (93) Pulse Ox 98 97 O2 Delivery Room Air O2 Flow Rate 2.00 04/28/18 04/28/18 04/29/18 04/29/18 21:44 23:24 00:22 03:39 Temp 97.8 97.2 97.8 97.2 Pulse 66 64 Resp 18 18 B/P (MAP) 144/71 109/58 (75) 108/58 (75) Pulse Ox 98 97 O2 Delivery Nasal Cannula O2 Flow Rate 2.00 04/29/18 04/29/18 04/29/18 04/29/18 08:05 08:10 08:18 10:43 Temp 98.9 98.9 Pulse 75 74 72 89 Resp 19 19 19 18 B/P (MAP) 138/62 (87) 153/71 (98) 96/61 (73) 132/55 (80) Pulse Ox 100 100 100 100 O2 Delivery Room Air Room Air Room Air Non-Rebreather O2 Flow Rate 10 04/29/18 04/29/18 04/29/18 10:58 11:13 11:30 Temp 97.8 98.1 97.8 98.1 Pulse 84 80 Resp 18 18 B/P (MAP) 127/67 (87) 115/58 (77) 115/58 Pulse Ox 94 96 O2 Delivery Nasal Canula Nasal Canula O2 Flow Rate 2 2 Intake and Output 04/28/18 04/28/18 04/29/18 15:01 23:01 07:01 Intake Total 540 ml 220 ml Output Total 300 ml 850 ml 150 ml Balance -300 ml -310 ml 70 ml Laboratory Tests Test 04/28/18 11:40 04/29/18 04:56 White Blood Count 5.1 10^3/uL 7.3 10^3/uL Red Blood Count 4.33 10^6/uL 4.02 10^6/uL Hemoglobin 12.9 g/dL 12.0 g/dL Hematocrit 37.7 % 35.8 % Mean Corpuscular Volume 87.1 fL 89.1 fL Mean Corpuscular Hemoglobin 29.8 pg 29.9 pg Mean Corpuscular Hemoglobin Concent 34.2 g/dL 33.5 g/dL Red Cell Distribution Width 13.1 % 13.1 % Platelet Count 135 10^3/uL 152 10^3/uL Mean Platelet Volume 9.7 fL 10.0 fL Neutrophils (%) (Auto) 69.0 % 68.5 % Lymphocytes (%) (Auto) 23.1 % 22.2 % Monocytes (%) (Auto) 6.3 % 8.1 % Neutrophils # (Auto) 3.5 10^3/uL 5.0 10^3/uL Lymphocytes # (Auto) 1.2 10^3/uL 1.6 10^3/uL Monocytes # (Auto) 0.3 10^3/uL 0.6 10^3/uL Absolute Immature Granulocyte (auto 0.02 10^3 u/L 0.01 10^3 u/L Eosinophils % 1.0 % 1.0 % Basophils % 0.2 % 0.1 % Basophils # 0.0 10^3/uL 0.0 10^3/uL Eosinophil Count 0.1 10^3/uL 0.1 10^3/uL Prothrombin Time 10.2 SEC Prothrombin Time INR (Non-Therap) 1.0 Activated Partial Thromboplast Time 21.5 SEC Sodium Level 141 mmol/L 140 mmol/L Potassium Level 3.9 mmol/L 4.3 mmol/L Chloride Level 105.0 mmol/L 106.0 mmol/L Carbon Dioxide Level 26.8 mmol/L 24.5 mmol/L Anion Gap 13.1 13.8 Blood Urea Nitrogen 15 mg/dL 17 mg/dL Creatinine 1.08 mg/dL 1.32 mg/dL Estimated GFR () 59.2 47.0 BUN/Creatinine Ratio 13.0 12.0 Glucose Level 106 mg/dL 120 mg/dL Calcium Level 8.7 mg/dL 8.6 mg/dL Total Bilirubin 0.7 mg/dL 0.7 mg/dL Aspartate Amino Transf (AST/SGOT) 24 U/L 55 U/L Alanine Aminotransferase (ALT/SGPT) 23 U/L 35 U/L Alkaline Phosphatase 85 U/L 87 U/L Troponin I < 0.02 ng/mL Total Protein 7.2 g/dL 6.5 g/dL Albumin 3.8 g/dL 3.3 g/dL Globulin 3.4 3.2 Percent Immature Gran (Cell Imm) 0.40 % 0.10 % Current Medications Medications (Trade) Dose Ordered Sig/Bee PRN Reason Start Time Stop Time Status Last Admin Aspirin (Aspirin Ec) 81 mg BID 04/29/18 21:00 05/29/18 20:59 Docusate Sodium (Colace) 100 mg DAILY 04/30/18 09:00 05/30/18 08:59 Famotidine (Pepcid) 20 mg DAILY 04/30/18 09:00 05/30/18 08:59 Hydralazine HCl (Apresoline) 10 mg Q4HR PRN HYPERTENSION 04/28/18 17:30 05/28/18 17:29 Hydromorphone HCl (Dilaudid) 0.2 mg Q5MIN PRN PAIN MILD 04/29/18 11:00 04/30/18 10:59 UNV Ibuprofen (Motrin) 800 mg Q6H PRN PAIN 04/28/18 17:30 05/28/18 17:29 04/29/18 00:04 Ondansetron HCl (Zofran) 4 mg PRN PRN nv 04/29/18 11:00 05/04/18 10:59 UNV Ondansetron HCl (Zofran) 4 mg Q4H PRN NAUSEA / VOMITING 04/28/18 15:30 05/28/18 15:29 Pantoprazole Sodium (Protonix) 40 mg DAILY 04/29/18 09:00 05/29/18 08:59 Ramipril (Altace) 5 mg BID 04/28/18 21:00 05/28/18 20:59 04/28/18 21:44 Sertraline HCl (Zoloft) 100 mg HS 04/28/18 21:00 05/28/18 20:59 Throat Lozenges (Cepacol Sore Throat Lozenge) 1 each PRN PRN SORE THROAT 04/29/18 11:00 05/29/18 10:59 Tramadol HCl (Ultram) 50 mg Q6H PRN MILD PAIN 04/29/18 11:00 05/29/18 10:59 Tramadol HCl (Ultram) 100 mg Q6H PRN SEVERE PAIN 04/29/18 11:00 05/29/18 10:59 04/29/18 12:15 Vancomycin HCl 1.5 gm/Sodium Chloride 500 ml @ 200 mls/hr Q12H 04/29/18 21:00 04/30/18 20:59 Sepsis Infection Criteria Pres: None LEVEL 1 SEPSIS INFECTION CRITE: ABX Therapy, Recent Invasive Procedure LEVEL 2-SIRS (LIST ALL THAT AP: None/Not assessed Cardiovascular Evidence: Not Assessed or None Hematologic Evidence: None/Not assessed Hepatic Evidence: None/Not assessed Metabolic Evidence: None/Not assessed Neurological Evidence: None/Not assessed Respiratory Evidence: None/Not assessed Renal Evidence: None/Not assessed O2 Sat by Pulse Oximetry: 93 Oxygen Flow Rate: 2.00 Assessment/Plan Assessment/Plan Assessment/Plan 1. Right Patella Fx: s/p repair this AM. Cont pain control. PT/OT. 2. Left fifth Metatarsal fx: Ortho managing. 3. HTN: cont home meds, good control 4. Anxiety: cont SSRI 5. Sjogren's Syndrome: outpatient f/u 6. Paget's Disease: outpatient infusion q 3months 7. PPx: PPI Plan 1. Right Patella Fx: s/p repair this AM. Cont pain control. PT/OT. 2. Left fifth Metatarsal fx: Ortho managing. 3. HTN: cont home meds, good control 4. Anxiety: cont SSRI 5. Sjogren's Syndrome: outpatient f/u 6. Paget's Disease: outpatient infusion q 3months 7. PPx: PPI JOHN JAMESON MD Apr 30, 2018 09:46
[2018-04-30] MEDS ORDERED: VALIUM PO PRN (10:00)
[2018-04-30] MEDS ORDERED: DILAUDID IV PRN (10:00)
--- NOTE | 2018-04-30 10:18 | PRM.PN ---
Subjective Subjective Date: Apr 30, 2018 Time: 10:10 Subjective Patient had worsening pain overnight. Better controlled this AM. BP fine. Labs reviewed. Patient will continue PT. No complaints this AM. Patient History: Hypertension VTE VTE Risk Total Score: 3 VTE Risk Score VTE Risk: Score 0-1 = Low Risk (Aggressive mobilization; early ambulation; no VTE prophylaxis required) Score 2: Moderate Risk (Intermittent/Pneumatic Compression Device OR Lovenox/Heparin/Coumadin) Score 3-4: High Risk (Intermittent/Pneumatic Compression Device AND Lovenox/Heparin/Coumadin) Score > or =5: Highest Risk (Intermittent/Pneumatic Compression Device AND Lovenox/Heparin/Coumadin) Review of Systems Allergies: Coded Allergies: Penicillins (Verified Allergy, Intermediate, RASH, 12/15/12) morphine (Verified Allergy, Mild, 11/06/14) Ugxcrgc-Vja-Dit Reductase Inhibitor (Verified Allergy, Unknown, Hives, ) "FLU-LIKE SYMPTOMS" Scheduled Aspirin (Aspir 81), 1 TAB PO DAILY, (Reported) Esomeprazole Magnesium (Nexium), 1 CAP PO DAILY, (Reported) Metoprolol Succinate (Metoprolol Succinate), 1 TAB PO DAILY, (Reported) Pantoprazole Sodium (Protonix), 1 TAB PO DAILY, (Reported) Pravastatin Sodium (Pravastatin Sodium), 1 TAB PO HS, (Reported) Ramipril (Ramipril), 1 CAP PO BID, (Reported) Ramipril 5MG (Altace 5MG), 1 CAP PO DAILY, (Reported) Sertraline Hcl (Sertraline Hcl), 1 TAB PO HS, (Reported) Objective Vitals and I/O Vital Sign - Last 24 Hours 04/28/18 04/28/18 04/28/18 04/28/18 14:00 14:00 15:00 15:00 Pulse 73 70 Resp 17 17 18 18 B/P (MAP) 178/76 (110) 174/81 (112) Pulse Ox 96 98 04/28/18 04/28/18 04/28/18 04/28/18 16:00 16:00 17:11 20:00 Temp 97.2 97.2 Pulse 68 77 Resp 16 16 18 B/P (MAP) 144/71 (95) 141/69 (93) Pulse Ox 98 97 O2 Delivery Room Air O2 Flow Rate 2.00 04/28/18 04/28/18 04/29/18 04/29/18 21:44 23:24 00:22 03:39 Temp 97.8 97.2 97.8 97.2 Pulse 66 64 Resp 18 18 B/P (MAP) 144/71 109/58 (75) 108/58 (75) Pulse Ox 98 97 O2 Delivery Nasal Cannula O2 Flow Rate 2.00 04/29/18 04/29/18 04/29/18 04/29/18 08:05 08:10 08:18 10:43 Temp 98.9 98.9 Pulse 75 74 72 89 Resp 19 19 18 B/P (MAP) 138/62 (87) 153/71 (98) 96/61 (73) 132/55 (80) Pulse Ox 100 100 100 100 O2 Delivery Room Air Room Air Room Air Non-Rebreather O2 Flow Rate 10 04/29/18 04/29/18 04/29/18 10:58 11:13 11:30 Temp 97.8 98.1 97.8 98.1 Pulse 84 80 Resp 18 B/P (MAP) 127/67 (87) 115/58 (77) 115/58 Pulse Ox 94 96 O2 Delivery Nasal Canula Nasal Canula O2 Flow Rate 2 2 Intake and Output 04/28/18 04/28/18 04/29/18 15:01 23:01 07:01 Intake Total 540 ml 220 ml Output Total 300 ml 850 ml 150 ml Balance -300 ml -310 ml 70 ml General: Alert, Oriented X3, Cooperative, No acute distress HEENT: Atraumatic, PERRLA, EOMI, Mucous membr. moist/pink Neck: Supple, No JVD Lungs: Clear to auscultation, Normal air movement Heart: Regular rate, Normal S1, Normal S2, No murmurs Abdomen: Normal bowel sounds, Soft, No tenderness Extremities: Other (right splint/dressing in place right leg) Neuro: Normal speech, Strength at 5/5 X4 ext, Normal tone, Sensation intact, Cranial nerves 3-12 NL Psych/Mental Status: Mental status NL, Mood NL All Results(Lab/Rad) Laboratory Tests Test 04/29/18 04:56 White Blood Count 7.3 10^3/uL Red Blood Count 4.02 10^6/uL Hemoglobin 12.0 g/dL Hematocrit 35.8 % Mean Corpuscular Volume 89.1 fL Mean Corpuscular Hemoglobin 29.9 pg Mean Corpuscular Hemoglobin Concent 33.5 g/dL Red Cell Distribution Width 13.1 % Platelet Count 152 10^3/uL Mean Platelet Volume 10.0 fL Neutrophils (%) (Auto) 68.5 % Lymphocytes (%) (Auto) 22.2 % Monocytes (%) (Auto) 8.1 % Neutrophils # (Auto) 5.0 10^3/uL Lymphocytes # (Auto) 1.6 10^3/uL Monocytes # (Auto) 0.6 10^3/uL Absolute Immature Granulocyte (auto 0.01 10^3 u/L Eosinophils % 1.0 % Basophils % 0.1 % Basophils # 0.0 10^3/uL Eosinophil Count 0.1 10^3/uL Sodium Level 140 mmol/L Potassium Level 4.3 mmol/L Chloride Level 106.0 mmol/L Carbon Dioxide Level 24.5 mmol/L Anion Gap 13.8 Blood Urea Nitrogen 17 mg/dL Creatinine 1.32 mg/dL Estimated GFR () 47.0 BUN/Creatinine Ratio 12.0 Glucose Level 120 mg/dL Calcium Level 8.6 mg/dL Total Bilirubin 0.7 mg/dL Aspartate Amino Transf (AST/SGOT) 55 U/L Alanine Aminotransferase (ALT/SGPT) 35 U/L Alkaline Phosphatase 87 U/L Total Protein 6.5 g/dL Albumin 3.3 g/dL Globulin 3.2 Percent Immature Gran (Cell Imm) 0.10 % Current Medications Medications (Trade) Dose Ordered Sig/Bee Route PRN Reason Start Time Stop Time Status Last Admin Dose Admin Meperidine HCl (Demerol) 50 mg STAT STAT IV 04/28/18 13:56 04/29/18 11:00 DC 04/28/18 15:45 Ondansetron HCl (Zofran) 4 mg STAT STAT IV 04/28/18 13:56 04/28/18 17:20 DC 04/28/18 15:43 Potassium Chloride/Dextrose/ Sod Cl 1,000 ml @ 100 mls/hr Q10H STAT IV 04/28/18 15:04 04/29/18 01:03 DC 04/28/18 15:46 Hydromorphone HCl (Dilaudid) 1 mg Q4H PRN IV PAIN 8-10 2/7/19 15:30 04/29/18 11:00 DC 04/29/18 03:51 Ondansetron HCl (Zofran) 4 mg Q4H PRN IV NAUSEA / VOMITING 04/28/18 15:30 05/28/18 15:29 Ondansetron HCl (Zofran) 4 mg STK-MED ONCE .ROUTE 04/28/18 15:27 04/28/18 15:31 DC Meperidine HCl (Demerol) 50 mg STK-MED ONCE .ROUTE 04/28/18 15:28 04/28/18 15:31 DC Potassium Chloride/Dextrose/ Sod Cl 1,000 ml @ ud STK-MED ONCE .ROUTE 04/28/18 15:28 04/28/18 15:32 DC Aspirin (Aspirin Ec) 81 mg DAILY PO 04/29/18 09:00 04/29/18 09:00 DC Esomeprazole Magnesium (Nexium) 40 mg DAILY PO 04/29/18 09:00 04/29/18 09:00 DC Metoprolol Succinate (Toprol Xl) 50 mg DAILY PO 04/29/18 09:00 04/29/18 09:00 DC Pantoprazole Sodium (Protonix) 40 mg DAILY PO 04/29/18 09:00 05/29/18 08:59 Ramipril (Altace) 5 mg BID PO 04/28/18 21:00 05/28/18 20:59 04/28/18 21:44 Sertraline HCl (Zoloft) 100 mg HS PO 04/28/18 21:00 05/28/18 20:59 Hydralazine HCl (Apresoline) 10 mg Q4HR PRN IV HYPERTENSION 04/28/18 17:30 05/28/18 17:29 Ibuprofen (Motrin) 800 mg Q6H PRN PO PAIN 04/28/18 17:30 05/28/18 17:29 04/29/18 00:04 Dexamethasone Sodium Phosphate (Decadron) 20 mg STK-MED ONCE .ROUTE 04/29/18 06:56 04/29/18 07:00 DC Bupivacaine HCl (Sensorcaine 0.5% Vial) 5 mg STK-MED ONCE .ROUTE 04/29/18 06:56 04/29/18 07:00 DC Ropivacaine (Naropin 0.2% 40 Mg/20 ml Vial) 2 mg STK-MED ONCE .ROUTE 04/29/18 06:57 04/29/18 07:00 DC Lidocaine HCl (Lidocaine 2% Vial) 500 mg STK-MED ONCE .ROUTE 04/29/18 06:57 04/29/18 07:00 DC Neostigmine Methylsulfate (Neostigmine) 10 mg STK-MED ONCE .ROUTE 04/29/18 06:57 04/29/18 07:00 DC Dexmedetomidine HCl (Precedex) 200 mcg STK-MED ONCE IV 04/29/18 06:57 04/29/18 07:00 DC Ondansetron HCl (Zofran) 4 mg STK-MED ONCE .ROUTE 04/29/18 06:57 04/29/18 07:01 DC Rocuronium [place] (Zemuron) 100 mg STK-MED ONCE IV 04/29/18 06:57 04/29/18 07:01 DC Fentanyl Citrate (Sublimaze) 100 mcg STK-MED ONCE .ROUTE 04/29/18 06:58 04/29/18 07:01 DC Propofol (Diprivan) 200 mg STK-MED ONCE IV 04/29/18 06:58 04/29/18 07:01 DC Sodium Chloride 1,000 ml @ ud STK-MED ONCE .ROUTE 04/29/18 06:58 04/29/18 07:02 DC Sodium Chloride 100 ml @ ud STK-MED ONCE IV 04/29/18 06:58 04/29/18 07:02 DC Midazolam HCl (Versed) 1 mg STK-MED ONCE .ROUTE 04/29/18 06:59 04/29/18 07:03 DC Sodium Chloride (Sodium Chloride) 1,000 ml STK-MED ONCE IR 04/29/18 07:15 04/29/18 07:19 DC Vancomycin HCl 1500 mg/Sodium Chloride 500 ml @ 500 mls/hr OT ONCE IV 04/29/18 08:00 04/29/18 08:59 DC Vancomycin HCl 2 ml @ ud STK-MED ONCE .ROUTE 04/29/18 07:56 04/29/18 08:00 DC Sodium Chloride 250 ml @ ud STK-MED ONCE IV 04/29/18 07:56 04/29/18 08:00 DC Sodium Chloride (Sodium Chloride) 1,000 ml STK-MED ONCE IR 04/29/18 08:34 04/29/18 08:38 DC Sodium Chloride 250 ml @ ud STK-MED ONCE IV 04/29/18 08:43 04/29/18 08:46 DC Sodium Chloride (Sodium Chloride) 1,000 ml STK-MED ONCE IR 04/29/18 09:42 04/29/18 09:46 DC Tramadol HCl (Ultram) 50 mg Q6H PRN PO MILD PAIN 04/29/18 11:00 05/29/18 10:59 Tramadol HCl (Ultram) 100 mg Q6H PRN PO SEVERE PAIN 04/29/18 11:00 05/29/18 10:59 04/29/18 12:15 Docusate Sodium (Colace) 100 mg DAILY PO 04/30/18 09:00 05/30/18 08:59 Throat Lozenges (Cepacol Sore Throat Lozenge) 1 each PRN PRN MM SORE THROAT 04/29/18 11:00 05/29/18 10:59 Famotidine (Pepcid) 20 mg DAILY PO 04/30/18 09:00 05/30/18 08:59 Vancomycin HCl 1.5 gm/Sodium Chloride 500 ml @ 200 mls/hr Q12H IV 04/29/18 21:00 04/30/18 20:59 Aspirin (Aspirin Ec) 81 mg BID PO 04/29/18 21:00 05/29/18 20:59 Meperidine HCl (Demerol) 50 mg Q4HR PRN IV PAIN 04/29/18 11:00 04/29/18 11:00 DC Hydromorphone HCl (Dilaudid) 0.2 mg Q5MIN PRN IV PAIN MILD 04/29/18 11:00 04/30/18 10:59 UNV Ondansetron HCl (Zofran) 4 mg PRN PRN IV nv 04/29/18 11:00 05/04/18 10:59 UNV Course Sepsis Screening Results: Posi: NEGATIVE Sepsis Qualifier/Stage: NO DEFINITE RISK Duration or Total Time Spent w: 90 mins Vitals & review Data Vital Sign - Last 24 Hours 04/28/18 04/28/18 04/28/18 04/28/18 14:00 14:00 15:00 15:00 Pulse 73 70 Resp 17 17 18 18 B/P (MAP) 178/76 (110) 174/81 (112) Pulse Ox 96 98 04/28/18 04/28/18 04/28/18 04/28/18 16:00 16:00 17:11 20:00 Temp 97.2 97.2 Pulse 68 77 Resp 16 16 18 B/P (MAP) 144/71 (95) 141/69 (93) Pulse Ox 98 97 O2 Delivery Room Air O2 Flow Rate 2.00 04/28/18 04/28/18 04/29/18 04/29/18 21:44 23:24 00:22 03:39 Temp 97.8 97.2 97.8 97.2 Pulse 66 64 Resp 18 18 B/P (MAP) 144/71 109/58 (75) 108/58 (75) Pulse Ox 98 97 O2 Delivery Nasal Cannula O2 Flow Rate 2.00 04/29/18 04/29/18 04/29/18 04/29/18 08:05 08:10 08:18 10:43 Temp 98.9 98.9 Pulse 75 74 72 89 Resp 19 19 19 18 B/P (MAP) 138/62 (87) 153/71 (98) 96/61 (73) 132/55 (80) Pulse Ox 100 100 100 100 O2 Delivery Room Air Room Air Room Air Non-Rebreather O2 Flow Rate 10 04/29/18 04/29/18 04/29/18 10:58 11:13 11:30 Temp 97.8 98.1 97.8 98.1 Pulse 84 80 Resp 18 18 B/P (MAP) 127/67 (87) 115/58 (77) 115/58 Pulse Ox 94 96 O2 Delivery Nasal Canula Nasal Canula O2 Flow Rate 2 2 Intake and Output 04/28/18 04/28/18 04/29/18 15:01 23:01 07:01 Intake Total 540 ml 220 ml Output Total 300 ml 850 ml 150 ml Balance -300 ml -310 ml 70 ml Laboratory Tests Test 04/28/18 11:40 04/29/18 04:56 White Blood Count 5.1 10^3/uL 7.3 10^3/uL Red Blood Count 4.33 10^6/uL 4.02 10^6/uL Hemoglobin 12.9 g/dL 12.0 g/dL Hematocrit 37.7 % 35.8 % Mean Corpuscular Volume 87.1 fL 89.1 fL Mean Corpuscular Hemoglobin 29.8 pg 29.9 pg Mean Corpuscular Hemoglobin Concent 34.2 g/dL 33.5 g/dL Red Cell Distribution Width 13.1 % 13.1 % Platelet Count 135 10^3/uL 152 10^3/uL Mean Platelet Volume 9.7 fL 10.0 fL Neutrophils (%) (Auto) 69.0 % 68.5 % Lymphocytes (%) (Auto) 23.1 % 22.2 % Monocytes (%) (Auto) 6.3 % 8.1 % Neutrophils # (Auto) 3.5 10^3/uL 5.0 10^3/uL Lymphocytes # (Auto) 1.2 10^3/uL 1.6 10^3/uL Monocytes # (Auto) 0.3 10^3/uL 0.6 10^3/uL Absolute Immature Granulocyte (auto 0.02 10^3 u/L 0.01 10^3 u/L Eosinophils % 1.0 % 1.0 % Basophils % 0.2 % 0.1 % Basophils # 0.0 10^3/uL 0.0 10^3/uL Eosinophil Count 0.1 10^3/uL 0.1 10^3/uL Prothrombin Time 10.2 SEC Prothrombin Time INR (Non-Therap) 1.0 Activated Partial Thromboplast Time 21.5 SEC Sodium Level 141 mmol/L 140 mmol/L Potassium Level 3.9 mmol/L 4.3 mmol/L Chloride Level 105.0 mmol/L 106.0 mmol/L Carbon Dioxide Level 26.8 mmol/L 24.5 mmol/L Anion Gap 13.1 13.8 Blood Urea Nitrogen 15 mg/dL 17 mg/dL Creatinine 1.08 mg/dL 1.32 mg/dL Estimated GFR () 59.2 47.0 BUN/Creatinine Ratio 13.0 12.0 Glucose Level 106 mg/dL 120 mg/dL Calcium Level 8.7 mg/dL 8.6 mg/dL Total Bilirubin 0.7 mg/dL 0.7 mg/dL Aspartate Amino Transf (AST/SGOT) 24 U/L 55 U/L Alanine Aminotransferase (ALT/SGPT) 23 U/L 35 U/L Alkaline Phosphatase 85 U/L 87 U/L Troponin I < 0.02 ng/mL Total Protein 7.2 g/dL 6.5 g/dL Albumin 3.8 g/dL 3.3 g/dL Globulin 3.4 3.2 Percent Immature Gran (Cell Imm) 0.40 % 0.10 % Current Medications Medications (Trade) Dose Ordered Sig/Bee PRN Reason Start Time Stop Time Status Last Admin Aspirin (Aspirin Ec) 81 mg BID 04/29/18 21:00 05/29/18 20:59 Docusate Sodium (Colace) 100 mg DAILY 04/30/18 09:00 05/30/18 08:59 Famotidine (Pepcid) 20 mg DAILY 04/30/18 09:00 05/30/18 08:59 Hydralazine HCl (Apresoline) 10 mg Q4HR PRN HYPERTENSION 04/28/18 17:30 05/28/18 17:29 Hydromorphone HCl (Dilaudid) 0.2 mg Q5MIN PRN PAIN MILD 04/29/18 11:00 04/30/18 10:59 UNV Ibuprofen (Motrin) 800 mg Q6H PRN PAIN 04/28/18 17:30 05/28/18 17:29 04/29/18 00:04 Ondansetron HCl (Zofran) 4 mg PRN PRN nv 04/29/18 11:00 05/04/18 10:59 UNV Ondansetron HCl (Zofran) 4 mg Q4H PRN NAUSEA / VOMITING 04/28/18 15:30 05/28/18 15:29 Pantoprazole Sodium (Protonix) 40 mg DAILY 04/29/18 09:00 05/29/18 08:59 Ramipril (Altace) 5 mg BID 04/28/18 21:00 05/28/18 20:59 04/28/18 21:44 Sertraline HCl (Zoloft) 100 mg HS 04/28/18 21:00 05/28/18 20:59 Throat Lozenges (Cepacol Sore Throat Lozenge) 1 each PRN PRN SORE THROAT 04/29/18 11:00 05/29/18 10:59 Tramadol HCl (Ultram) 50 mg Q6H PRN MILD PAIN 04/29/18 11:00 05/29/18 10:59 Tramadol HCl (Ultram) 100 mg Q6H PRN SEVERE PAIN 04/29/18 11:00 05/29/18 10:59 04/29/18 12:15 Vancomycin HCl 1.5 gm/Sodium Chloride 500 ml @ 200 mls/hr Q12H 04/29/18 21:00 04/30/18 20:59 Sepsis Infection Criteria Pres: None LEVEL 1 SEPSIS INFECTION CRITE: ABX Therapy, Recent Invasive Procedure LEVEL 2-SIRS (LIST ALL THAT AP: None/Not assessed Cardiovascular Evidence: Not Assessed or None Hematologic Evidence: None/Not assessed Hepatic Evidence: None/Not assessed Metabolic Evidence: None/Not assessed Neurological Evidence: None/Not assessed Respiratory Evidence: None/Not assessed Renal Evidence: None/Not assessed O2 Sat by Pulse Oximetry: 93 Oxygen Flow Rate: 2.00 Assessment/Plan Assessment/Plan Assessment/Plan Patient is a 77 F PMH of Sjogren's Syndrome, Paget's disease, breast cancer, HTN , HLD, presenting with mechanical fall this AM from her porch and found to have 5th left metatarsal fx and Right Patella fx. Plan 1. Right Patella Fx: Ortho managing, cont pain control. PT to continue working with patient. 2. Left fifth Metatarsal fx: Ortho managing. 3. HTN: cont home meds, good control 4. Anxiety: cont SSRI 5. Sjogren's Syndrome: outpatient f/u 6. Paget's Disease: outpatient infusion q 3months 7. PPx: PPI MANJULA RODRIGUEZ MD Apr 30, 2018 10:18
[2018-04-30 11:50] VITALS: BP 121/57
--- NOTE | 2018-04-30 14:23 | NUR ---
Pt AND HER DAUGHTER REQUESTED FOR ULTRAM 50 MG PRN DAUGHTER STATES " I WANT HER ON TOP OF PAIN AND GET SCHEDULED ONE" ADMINISTERED MED PER ORDER.
[2018-04-30 16:10] VITALS: BP 109/56
--- NOTE | 2018-04-30 17:50 | NUR ---
status Pt C/O OF BEING ANXIOUS DENIES ANY CHEST PAIN, STATES HAS HIST OF ANXIETY TAKES ALPRAZOLAM HALF OF LOWEST DOSE, UNABLE TO TELL DOSE, BUTS SATES " BUT BEFORE MEDICINE I DISTRACT MYSELF AND IT HELPS". Pt AND FAMILY REFUSED TO GET VALIUM SCHEDULE HERE SPOUSE STATES SHE HAS NEVER TAKEN BEFORE, VS BP 143/62, P 79, RR 16 , TEMP 97.5, O2SAT IN 4 LIT 100 %. Pt STATES "NOW I AM FEELING BETTER", Pt IN [facility] FAMILY AT THE BEDSIDE.
--- NOTE | 2018-04-30 19:25 | NUR ---
SHIFT CHANGE REPORT GIVEN TO T NIGHT NURSE CASSIE ANURAG.
[2018-04-30 20:30] VITALS: BP 109/48
--- NOTE | 2018-04-30 21:07 | NUR ---
lab called to report a critical vanc through. gave report to Delores OSBORN pt's nurse
--- NOTE | 2018-04-30 21:15 | NUR ---
VANC TROUGH REPORTED TO DR JAMESON [facility] VALUE FOR VANC TROUGH OF 23.4. ORDERED TO DISCONTINUE VANCOMYCIN
[2018-04-30] MEDS: ZOLOFT PO SCH (21:25)
[2018-04-30 21:41] VITALS: BP 115/55
[2018-05-01 00:09] VITALS: BP 136/67
[2018-05-01] MEDS: LACTATED RINGERS 1,000 ML IV SCH (03:33)
[2018-05-01] MEDS: ULTRAM PO PRN ×4 (03:45→20:40)
[2018-05-01 04:46] VITALS: BP 136/66
[2018-05-01 08:05] LABS: HEMOGLOBIN 10.8 g/dL (12.0-15.0); MEAN CELL HGB 29.7 pg (26-34); MEAN CELL HGB CONCENTRATION 32.5 g/dL (33-37); MEAN CORP VOLUME 91.2 fL (78-100); MEAN PLATELET VOLUME 9.6 fL (7.8-11.0); RED CELL DISTRIBUTION WIDTH 13.4 % (11.5-14.5); WHITE BLOOD CELL 6.6 10^3/uL (4.5-11.0)
[2018-05-01 09:21] VITALS: BP 144/63
[2018-05-01] MEDS: ASPIRIN EC PO SCH ×2 (09:27→20:40)
[2018-05-01] MEDS: ALTACE PO SCH ×2 (09:27→20:41)
[2018-05-01] MEDS: PROTONIX PO SCH (09:27)
[2018-05-01] MEDS: PEPCID PO SCH (09:27)
[2018-05-01] MEDS: COLACE PO SCH (09:27)
--- NOTE | 2018-05-01 10:26 | NUR ---
Anesthesia Post Op Visit Ms. Cruz had a Right Femoral and Adductor Canal Block for an ORIF of the Right Patella on Wednesday. I visited with her and her family on Wednesday and they said she was pain free until about 8pm on Wednesday then started experiencing moderate to severe pain. After about 6 hours they got the pain under control using P.O. [place]. From symptoms I would question Adductor canal block issues. I discussed with family the fact that the adductor canal block could be repeated if need be but they said the [place] was making her comfortable for now, but down the line if she got uncomfortable again they would reconsider
--- NOTE | 2018-05-01 10:27 | PRM.PN ---
Subjective Subjective Date: May 01, 2018 Time: 10:23 Subjective Patient had worsening pain overnight. Better controlled this AM. BP fine. Labs reviewed. Patient will continue PT. No complaints this AM. Slow to progress with PT VSS Afebrile HGB 10 stable Cont with PT Patient History: Hypertension VTE VTE Risk Total Score: 3 VTE Risk Score VTE Risk: Score 0-1 = Low Risk (Aggressive mobilization; early ambulation; no VTE prophylaxis required) Score 2: Moderate Risk (Intermittent/Pneumatic Compression Device OR Lovenox/Heparin/Coumadin) Score 3-4: High Risk (Intermittent/Pneumatic Compression Device AND Lovenox/Heparin/Coumadin) Score > or =5: Highest Risk (Intermittent/Pneumatic Compression Device AND Lovenox/Heparin/Coumadin) Review of Systems Allergies: Coded Allergies: Penicillins (Verified Allergy, Intermediate, RASH, 12/15/12) morphine (Verified Allergy, Mild, 11/06/14) Utfecej-Ngx-Awv Reductase Inhibitor (Verified Allergy, Unknown, Hives, ) "FLU-LIKE SYMPTOMS" Scheduled Aspirin (Aspir 81), 1 TAB PO DAILY, (Reported) Esomeprazole Magnesium (Nexium), 1 CAP PO DAILY, (Reported) Metoprolol Succinate (Metoprolol Succinate), 1 TAB PO DAILY, (Reported) Pantoprazole Sodium (Protonix), 1 TAB PO DAILY, (Reported) Pravastatin Sodium (Pravastatin Sodium), 1 TAB PO HS, (Reported) Ramipril (Ramipril), 1 CAP PO BID, (Reported) Ramipril 5MG (Altace 5MG), 1 CAP PO DAILY, (Reported) Sertraline Hcl (Sertraline Hcl), 1 TAB PO HS, (Reported) Objective Vitals and I/O Vital Sign - Last 24 Hours 04/28/18 04/28/18 04/28/18 04/28/18 14:00 14:00 15:00 15:00 Pulse 73 70 Resp 17 17 18 18 B/P (MAP) 178/76 (110) 174/81 (112) Pulse Ox 96 98 04/28/18 04/28/18 04/28/18 04/28/18 16:00 16:00 17:11 20:00 Temp 97.2 97.2 Pulse 68 77 Resp 16 16 18 B/P (MAP) 144/71 (95) 141/69 (93) Pulse Ox 98 97 O2 Delivery Room Air O2 Flow Rate 2.00 04/28/18 04/28/18 04/29/18 04/29/18 21:44 23:24 00:22 03:39 Temp 97.8 97.2 97.8 97.2 Pulse 66 64 Resp 18 18 B/P (MAP) 144/71 109/58 (75) 108/58 (75) Pulse Ox 98 97 O2 Delivery Nasal Cannula O2 Flow Rate 2.00 04/29/18 04/29/18 04/29/18 04/29/18 08:05 08:10 08:18 10:43 Temp 98.9 98.9 Pulse 75 74 72 89 Resp 19 18 B/P (MAP) 138/62 (87) 153/71 (98) 96/61 (73) 132/55 (80) Pulse Ox 100 100 100 100 O2 Delivery Room Air Room Air Room Air Non-Rebreather O2 Flow Rate 10 04/29/18 04/29/18 04/29/18 10:58 11:13 11:30 Temp 97.8 98.1 97.8 98.1 Pulse 84 80 Resp 18 18 B/P (MAP) 127/67 (87) 115/58 (77) 115/58 Pulse Ox 94 96 O2 Delivery Nasal Canula Nasal Canula O2 Flow Rate 2 2 Intake and Output 04/28/18 04/28/18 04/29/18 15:01 23:01 07:01 Intake Total 540 ml 220 ml Output Total 300 ml 850 ml 150 ml Balance -300 ml -310 ml 70 ml General: Alert, Oriented X3, Cooperative, No acute distress HEENT: Atraumatic, PERRLA, EOMI, Mucous membr. moist/pink Neck: Supple, No JVD Lungs: Clear to auscultation, Normal air movement Heart: Regular rate, Normal S1, Normal S2, No murmurs Abdomen: Normal bowel sounds, Soft, No tenderness Extremities: Other (right splint/dressing in place right leg) Neuro: Normal speech, Strength at 5/5 X4 ext, Normal tone, Sensation intact, Cranial nerves 3-12 NL Psych/Mental Status: Mental status NL, Mood NL All Results(Lab/Rad) Laboratory Tests Test 04/29/18 04:56 White Blood Count 7.3 10^3/uL Red Blood Count 4.02 10^6/uL Hemoglobin 12.0 g/dL Hematocrit 35.8 % Mean Corpuscular Volume 89.1 fL Mean Corpuscular Hemoglobin 29.9 pg Mean Corpuscular Hemoglobin Concent 33.5 g/dL Red Cell Distribution Width 13.1 % Platelet Count 152 10^3/uL Mean Platelet Volume 10.0 fL Neutrophils (%) (Auto) 68.5 % Lymphocytes (%) (Auto) 22.2 % Monocytes (%) (Auto) 8.1 % Neutrophils # (Auto) 5.0 10^3/uL Lymphocytes # (Auto) 1.6 10^3/uL Monocytes # (Auto) 0.6 10^3/uL Absolute Immature Granulocyte (auto 0.01 10^3 u/L Eosinophils % 1.0 % Basophils % 0.1 % Basophils # 0.0 10^3/uL Eosinophil Count 0.1 10^3/uL Sodium Level 140 mmol/L Potassium Level 4.3 mmol/L Chloride Level 106.0 mmol/L Carbon Dioxide Level 24.5 mmol/L Anion Gap 13.8 Blood Urea Nitrogen 17 mg/dL Creatinine 1.32 mg/dL Estimated GFR () 47.0 BUN/Creatinine Ratio 12.0 Glucose Level 120 mg/dL Calcium Level 8.6 mg/dL Total Bilirubin 0.7 mg/dL Aspartate Amino Transf (AST/SGOT) 55 U/L Alanine Aminotransferase (ALT/SGPT) 35 U/L Alkaline Phosphatase 87 U/L Total Protein 6.5 g/dL Albumin 3.3 g/dL Globulin 3.2 Percent Immature Gran (Cell Imm) 0.10 % Current Medications Medications (Trade) Dose Ordered Sig/Bee Route PRN Reason Start Time Stop Time Status Last Admin Dose Admin Meperidine HCl (Demerol) 50 mg STAT STAT IV 04/28/18 13:56 04/29/18 11:00 DC 04/28/18 15:45 Ondansetron HCl (Zofran) 4 mg STAT STAT IV 04/28/18 13:56 04/28/18 17:20 DC 04/28/18 15:43 Potassium Chloride/Dextrose/ Sod Cl 1,000 ml @ 100 mls/hr Q10H STAT IV 04/28/18 15:04 04/29/18 01:03 DC 04/28/18 15:46 Hydromorphone HCl (Dilaudid) 1 mg Q4H PRN IV PAIN 8-10 04/28/18 15:30 04/29/18 11:00 DC 04/29/18 03:51 Ondansetron HCl (Zofran) 4 mg Q4H PRN IV NAUSEA / VOMITING 04/28/18 15:30 05/28/18 15:29 Ondansetron HCl (Zofran) 4 mg STK-MED ONCE .ROUTE 04/28/18 15:27 04/28/18 15:31 DC Meperidine HCl (Demerol) 50 mg STK-MED ONCE .ROUTE 04/28/18 15:28 04/28/18 15:31 DC Potassium Chloride/Dextrose/ Sod Cl 1,000 ml @ ud STK-MED ONCE .ROUTE 04/28/18 15:28 04/28/18 15:32 DC Aspirin (Aspirin Ec) 81 mg DAILY PO 04/29/18 09:00 04/29/18 09:00 DC Esomeprazole Magnesium (Nexium) 40 mg DAILY PO 04/29/18 09:00 04/29/18 09:00 DC Metoprolol Succinate (Toprol Xl) 50 mg DAILY PO 04/29/18 09:00 04/29/18 09:00 DC Pantoprazole Sodium (Protonix) 40 mg DAILY PO 04/29/18 09:00 05/29/18 08:59 Ramipril (Altace) 5 mg BID PO 04/28/18 21:00 05/28/18 20:59 04/28/18 21:44 Sertraline HCl (Zoloft) 100 mg HS PO 04/28/18 21:00 05/28/18 20:59 Hydralazine HCl (Apresoline) 10 mg Q4HR PRN IV HYPERTENSION 04/28/18 17:30 05/28/18 17:29 Ibuprofen (Motrin) 800 mg Q6H PRN PO PAIN 04/28/18 17:30 05/28/18 17:29 04/29/18 00:04 Dexamethasone Sodium Phosphate (Decadron) 20 mg STK-MED ONCE .ROUTE 04/29/18 06:56 04/29/18 07:00 DC Bupivacaine HCl (Sensorcaine 0.5% Vial) 5 mg STK-MED ONCE .ROUTE 04/29/18 06:56 04/29/18 07:00 DC Ropivacaine (Naropin 0.2% 40 Mg/20 ml Vial) 2 mg STK-MED ONCE .ROUTE 04/29/18 06:57 04/29/18 07:00 DC Lidocaine HCl (Lidocaine 2% Vial) 500 mg STK-MED ONCE .ROUTE 04/29/18 06:57 04/29/18 07:00 DC Neostigmine Methylsulfate (Neostigmine) 10 mg STK-MED ONCE .ROUTE 04/29/18 06:57 04/29/18 07:00 DC Dexmedetomidine HCl (Precedex) 200 mcg STK-MED ONCE IV 04/29/18 06:57 04/29/18 07:00 DC Ondansetron HCl (Zofran) 4 mg STK-MED ONCE .ROUTE 04/29/18 06:57 04/29/18 07:01 DC Rocuronium [place] (Zemuron) 100 mg STK-MED ONCE IV 04/29/18 06:57 04/29/18 07:01 DC Fentanyl Citrate (Sublimaze) 100 mcg STK-MED ONCE .ROUTE 04/29/18 06:58 04/29/18 07:01 DC Propofol (Diprivan) 200 mg STK-MED ONCE IV 04/29/18 06:58 04/29/18 07:01 DC Sodium Chloride 1,000 ml @ ud STK-MED ONCE .ROUTE 04/29/18 06:58 04/29/18 07:02 DC Sodium Chloride 100 ml @ ud STK-MED ONCE IV 04/29/18 06:58 04/29/18 07:02 DC Midazolam HCl (Versed) 1 mg STK-MED ONCE .ROUTE 04/29/18 06:59 04/29/18 07:03 DC Sodium Chloride (Sodium Chloride) 1,000 ml STK-MED ONCE IR 04/29/18 07:15 04/29/18 07:19 DC Vancomycin HCl 1500 mg/Sodium Chloride 500 ml @ 500 mls/hr OT ONCE IV 04/29/18 08:00 04/29/18 08:59 DC Vancomycin HCl 2 ml @ ud STK-MED ONCE .ROUTE 04/29/18 07:56 04/29/18 08:00 DC Sodium Chloride 250 ml @ ud STK-MED ONCE IV 04/29/18 07:56 04/29/18 08:00 DC Sodium Chloride (Sodium Chloride) 1,000 ml STK-MED ONCE IR 04/29/18 08:34 04/29/18 08:38 DC Sodium Chloride 250 ml @ ud STK-MED ONCE IV 04/29/18 08:43 04/29/18 08:46 DC Sodium Chloride (Sodium Chloride) 1,000 ml STK-MED ONCE IR 04/29/18 09:42 04/29/18 09:46 DC Tramadol HCl (Ultram) 50 mg Q6H PRN PO MILD PAIN 04/29/18 11:00 05/29/18 10:59 Tramadol HCl (Ultram) 100 mg Q6H PRN PO SEVERE PAIN 04/29/18 11:00 05/29/18 10:59 04/29/18 12:15 Docusate Sodium (Colace) 100 mg DAILY PO 04/30/18 09:00 05/30/18 08:59 Throat Lozenges (Cepacol Sore Throat Lozenge) 1 each PRN PRN MM SORE THROAT 04/29/18 11:00 05/29/18 10:59 Famotidine (Pepcid) 20 mg DAILY PO 04/30/18 09:00 05/30/18 08:59 Vancomycin HCl 1.5 gm/Sodium Chloride 500 ml @ 200 mls/hr Q12H IV 04/29/18 21:00 04/30/18 20:59 Aspirin (Aspirin Ec) 81 mg BID PO 04/29/18 21:00 05/29/18 20:59 Meperidine HCl (Demerol) 50 mg Q4HR PRN IV PAIN 04/29/18 11:00 04/29/18 11:00 DC Hydromorphone HCl (Dilaudid) 0.2 mg Q5MIN PRN IV PAIN MILD 04/29/18 11:00 04/30/18 10:59 UNV Ondansetron HCl (Zofran) 4 mg PRN PRN IV nv 04/29/18 11:00 05/04/18 10:59 UNV Course Sepsis Screening Results: Posi: NEGATIVE Sepsis Qualifier/Stage: NO DEFINITE RISK Duration or Total Time Spent w: 90 mins Vitals & review Data Vital Sign - Last 24 Hours 2/10/0704/28/18 04/28/18 04/28/18 14:00 14:00 15:00 15:00 Pulse 73 70 Resp 17 17 18 18 B/P (MAP) 178/76 (110) 174/81 (112) Pulse Ox 96 98 04/28/18 04/28/18 04/28/18 04/28/18 16:00 16:00 17:11 20:00 Temp 97.2 97.2 Pulse 68 77 Resp 16 16 18 B/P (MAP) 144/71 (95) 141/69 (93) Pulse Ox 98 97 O2 Delivery Room Air O2 Flow Rate 2.00 04/28/18 04/28/18 04/29/18 04/29/18 21:44 23:24 00:22 03:39 Temp 97.8 97.2 97.8 97.2 Pulse 66 64 Resp 18 18 B/P (MAP) 144/71 109/58 (75) 108/58 (75) Pulse Ox 98 97 O2 Delivery Nasal Cannula O2 Flow Rate 2.00 04/29/18 04/29/18 04/29/18 04/29/18 08:05 08:10 08:18 10:43 Temp 98.9 98.9 Pulse 75 74 72 89 Resp 19 19 19 18 B/P (MAP) 138/62 (87) 153/71 (98) 96/61 (73) 132/55 (80) Pulse Ox 100 100 100 100 O2 Delivery Room Air Room Air Room Air Non-Rebreather O2 Flow Rate 10 04/29/18 04/29/18 04/29/18 10:58 11:13 11:30 Temp 97.8 98.1 97.8 98.1 Pulse 84 80 Resp 18 18 B/P (MAP) 127/67 (87) 115/58 (77) 115/58 Pulse Ox 94 96 O2 Delivery Nasal Canula Nasal Canula O2 Flow Rate 2 2 Intake and Output 04/28/18 04/28/18 04/29/18 15:01 23:01 07:01 Intake Total 540 ml 220 ml Output Total 300 ml 850 ml 150 ml Balance -300 ml -310 ml 70 ml Laboratory Tests Test 04/28/18 11:40 04/29/18 04:56 White Blood Count 5.1 10^3/uL 7.3 10^3/uL Red Blood Count 4.33 10^6/uL 4.02 10^6/uL Hemoglobin 12.9 g/dL 12.0 g/dL Hematocrit 37.7 % 35.8 % Mean Corpuscular Volume 87.1 fL 89.1 fL Mean Corpuscular Hemoglobin 29.8 pg 29.9 pg Mean Corpuscular Hemoglobin Concent 34.2 g/dL 33.5 g/dL Red Cell Distribution Width 13.1 % 13.1 % Platelet Count 135 10^3/uL 152 10^3/uL Mean Platelet Volume 9.7 fL 10.0 fL Neutrophils (%) (Auto) 69.0 % 68.5 % Lymphocytes (%) (Auto) 23.1 % 22.2 % Monocytes (%) (Auto) 6.3 % 8.1 % Neutrophils # (Auto) 3.5 10^3/uL 5.0 10^3/uL Lymphocytes # (Auto) 1.2 10^3/uL 1.6 10^3/uL Monocytes # (Auto) 0.3 10^3/uL 0.6 10^3/uL Absolute Immature Granulocyte (auto 0.02 10^3 u/L 0.01 10^3 u/L Eosinophils % 1.0 % 1.0 % Basophils % 0.2 % 0.1 % Basophils # 0.0 10^3/uL 0.0 10^3/uL Eosinophil Count 0.1 10^3/uL 0.1 10^3/uL Prothrombin Time 10.2 SEC Prothrombin Time INR (Non-Therap) 1.0 Activated Partial Thromboplast Time 21.5 SEC Sodium Level 141 mmol/L 140 mmol/L Potassium Level 3.9 mmol/L 4.3 mmol/L Chloride Level 105.0 mmol/L 106.0 mmol/L Carbon Dioxide Level 26.8 mmol/L 24.5 mmol/L Anion Gap 13.1 13.8 Blood Urea Nitrogen 15 mg/dL 17 mg/dL Creatinine 1.08 mg/dL 1.32 mg/dL Estimated GFR () 59.2 47.0 BUN/Creatinine Ratio 13.0 12.0 Glucose Level 106 mg/dL 120 mg/dL Calcium Level 8.7 mg/dL 8.6 mg/dL Total Bilirubin 0.7 mg/dL 0.7 mg/dL Aspartate Amino Transf (AST/SGOT) 24 U/L 55 U/L Alanine Aminotransferase (ALT/SGPT) 23 U/L 35 U/L Alkaline Phosphatase 85 U/L 87 U/L Troponin I < 0.02 ng/mL Total Protein 7.2 g/dL 6.5 g/dL Albumin 3.8 g/dL 3.3 g/dL Globulin 3.4 3.2 Percent Immature Gran (Cell Imm) 0.40 % 0.10 % Current Medications Medications (Trade) Dose Ordered Sig/Bee PRN Reason Start Time Stop Time Status Last Admin Aspirin (Aspirin Ec) 81 mg BID 04/29/18 21:00 05/29/18 20:59 Docusate Sodium (Colace) 100 mg DAILY 04/30/18 09:00 05/30/18 08:59 Famotidine (Pepcid) 20 mg DAILY 04/30/18 09:00 05/30/18 08:59 Hydralazine HCl (Apresoline) 10 mg Q4HR PRN HYPERTENSION 04/28/18 17:30 05/28/18 17:29 Hydromorphone HCl (Dilaudid) 0.2 mg Q5MIN PRN PAIN MILD 04/29/18 11:00 04/30/18 10:59 UNV Ibuprofen (Motrin) 800 mg Q6H PRN PAIN 04/28/18 17:30 05/28/18 17:29 04/29/18 00:04 Ondansetron HCl (Zofran) 4 mg PRN PRN nv 04/29/18 11:00 05/04/18 10:59 UNV Ondansetron HCl (Zofran) 4 mg Q4H PRN NAUSEA / VOMITING 04/28/18 15:30 05/28/18 15:29 Pantoprazole Sodium (Protonix) 40 mg DAILY 04/29/18 09:00 05/29/18 08:59 Ramipril (Altace) 5 mg BID 04/28/18 21:00 05/28/18 20:59 04/28/18 21:44 Sertraline HCl (Zoloft) 100 mg HS 04/28/18 21:00 05/28/18 20:59 Throat Lozenges (Cepacol Sore Throat Lozenge) 1 each PRN PRN SORE THROAT 04/29/18 11:00 05/29/18 10:59 Tramadol HCl (Ultram) 50 mg Q6H PRN MILD PAIN 04/29/18 11:00 05/29/18 10:59 Tramadol HCl (Ultram) 100 mg Q6H PRN SEVERE PAIN 04/29/18 11:00 05/29/18 10:59 04/29/18 12:15 Vancomycin HCl 1.5 gm/Sodium Chloride 500 ml @ 200 mls/hr Q12H 04/29/18 21:00 04/30/18 20:59 Sepsis Infection Criteria Pres: None LEVEL 1 SEPSIS INFECTION CRITE: ABX Therapy, Recent Invasive Procedure LEVEL 2-SIRS (LIST ALL THAT AP: None/Not assessed Cardiovascular Evidence: Not Assessed or None Hematologic Evidence: None/Not assessed Hepatic Evidence: None/Not assessed Metabolic Evidence: None/Not assessed Neurological Evidence: None/Not assessed Respiratory Evidence: None/Not assessed Renal Evidence: None/Not assessed O2 Sat by Pulse Oximetry: 98 Oxygen Flow Rate: 2.00 Assessment/Plan Assessment/Plan Assessment/Plan 1. Right Patella Fx: Ortho managing, cont pain control. PT to continue working with patient. 2. Left fifth Metatarsal fx: Ortho managing. 3. HTN: cont home meds, good control 4. Anxiety: cont SSRI 5. Sjogren's Syndrome: outpatient f/u 6. Paget's Disease: outpatient infusion q 3months 7. PPx: PPI Plan 1. Right Patella Fx: Ortho managing, cont pain control. PT to continue working with patient. 2. Left fifth Metatarsal fx: Ortho managing. 3. HTN: cont home meds, good control 4. Anxiety: cont SSRI 5. Sjogren's Syndrome: outpatient f/u 6. Paget's Disease: outpatient infusion q 3months 7. PPx: PPI JOHN JAMESON MD May 01, 2018 10:27
[2018-05-01 13:48] VITALS: BP 129/64
[2018-05-01 15:56] VITALS: BP 123/59
--- NOTE | 2018-05-01 18:41 | NUR ---
REPORT GIVEN TO ONCOMING SHIFT
[2018-05-01] MEDS: ZOLOFT PO SCH (20:40)
[2018-05-01 20:45] VITALS: BP 122/54
[2018-05-02 00:30] VITALS: BP 124/58
[2018-05-02 04:20] VITALS: BP 125/60
[2018-05-02] MEDS: ULTRAM PO PRN (04:27)
[2018-05-02] MEDS ORDERED: ALTACE ONE ×2 (08:43)
[2018-05-02] MEDS: ALTACE PO SCH (09:00)
[2018-05-02] MEDS: ASPIRIN EC PO SCH (09:45)
[2018-05-02] MEDS: PROTONIX PO SCH (09:45)
[2018-05-02] MEDS: PEPCID PO SCH (09:45)
[2018-05-02] MEDS: COLACE PO SCH (09:45)
[2018-05-02 10:07] VITALS: BP 126/71
--- NOTE | 2018-05-02 10:12 | PRM.PN ---
Subjective Subjective Date: May 02, 2018 Time: 10:07 Subjective Pain controlled. BP controlled. No complaints. Possible d/c today. Patient History: Hypertension VTE VTE Risk Total Score: 3 VTE Risk Score VTE Risk: Score 0-1 = Low Risk (Aggressive mobilization; early ambulation; no VTE prophylaxis required) Score 2: Moderate Risk (Intermittent/Pneumatic Compression Device OR Lovenox/Heparin/Coumadin) Score 3-4: High Risk (Intermittent/Pneumatic Compression Device AND Lovenox/Heparin/Coumadin) Score > or =5: Highest Risk (Intermittent/Pneumatic Compression Device AND Lovenox/Heparin/Coumadin) Review of Systems Allergies: Coded Allergies: Penicillins (Verified Allergy, Intermediate, RASH, 12/15/12) morphine (Verified Allergy, Mild, 11/06/14) [id number] Reductase Inhibitor (Verified Allergy, Unknown, Hives, ) "FLU-LIKE SYMPTOMS" Scheduled Aspirin (Aspir 81), 1 TAB PO DAILY, (Reported) Esomeprazole Magnesium (Nexium), 1 CAP PO DAILY, (Reported) Pantoprazole Sodium (Protonix), 1 TAB PO DAILY, (Reported) Pravastatin Sodium (Pravastatin Sodium), 1 TAB PO HS, (Reported) Ramipril (Ramipril), 1 CAP PO BID, (Reported) Ramipril 5MG (Altace 5MG), 1 CAP PO DAILY, (Reported) Sertraline Hcl (Sertraline Hcl), 1 TAB PO HS, (Reported) Discontinued Medications Metoprolol Succinate (Metoprolol Succinate), 1 TAB PO DAILY, (Reported) Discontinued Reason: No Longer Taking Objective Vitals and I/O Vital Sign - Last 24 Hours 04/28/18 04/28/18 04/28/18 04/28/18 14:00 14:00 15:00 15:00 Pulse 73 70 Resp 17 17 18 18 B/P (MAP) 178/76 (110) 174/81 (112) Pulse Ox 96 98 04/28/18 04/28/18 04/28/18 04/28/18 16:00 16:00 17:11 20:00 Temp 97.2 97.2 Pulse 68 77 Resp 16 16 18 B/P (MAP) 144/71 (95) 141/69 (93) Pulse Ox 98 97 O2 Delivery Room Air O2 Flow Rate 2.00 04/28/18 04/28/18 04/29/18 04/29/18 21:44 23:24 00:22 03:39 Temp 97.8 97.2 97.8 97.2 Pulse 66 64 Resp 18 18 B/P (MAP) 144/71 109/58 (75) 108/58 (75) Pulse Ox 98 97 O2 Delivery Nasal Cannula O2 Flow Rate 2.00 04/29/18 04/29/18 04/29/18 04/29/18 08:05 08:10 08:18 10:43 Temp 98.9 98.9 Pulse 75 74 72 89 Resp 19 19 19 18 B/P (MAP) 138/62 (87) 153/71 (98) 96/61 (73) 132/55 (80) Pulse Ox 100 100 100 100 O2 Delivery Room Air Room Air Room Air Non-Rebreather O2 Flow Rate 10 04/29/18 04/29/18 04/29/18 10:58 11:13 11:30 Temp 97.8 98.1 97.8 98.1 Pulse 84 80 Resp 18 18 B/P (MAP) 127/67 (87) 115/58 (77) 115/58 Pulse Ox 94 96 O2 Delivery Nasal Canula Nasal Canula O2 Flow Rate 2 2 Intake and Output 04/28/18 04/28/18 04/29/18 15:01 23:01 07:01 Intake Total 540 ml 220 ml Output Total 300 ml 850 ml 150 ml Balance -300 ml -310 ml 70 ml General: Alert, Oriented X3, Cooperative, No acute distress HEENT: Atraumatic, PERRLA, EOMI, Mucous membr. moist/pink Neck: Supple, No JVD Lungs: Clear to auscultation, Normal air movement Heart: Regular rate, Normal S1, Normal S2, No murmurs Abdomen: Normal bowel sounds, Soft, No tenderness Extremities: Normal pulses, Other (right splint/dressing in place right leg) Neuro: Normal speech, Strength at 5/5 X4 ext, Normal tone, Sensation intact, Cranial nerves 3-12 NL Psych/Mental Status: Mental status NL, Mood NL All Results(Lab/Rad) Laboratory Tests Test 04/29/18 04:56 White Blood Count 7.3 10^3/uL Red Blood Count 4.02 10^6/uL Hemoglobin 12.0 g/dL Hematocrit 35.8 % Mean Corpuscular Volume 89.1 fL Mean Corpuscular Hemoglobin 29.9 pg Mean Corpuscular Hemoglobin Concent 33.5 g/dL Red Cell Distribution Width 13.1 % Platelet Count 152 10^3/uL Mean Platelet Volume 10.0 fL Neutrophils (%) (Auto) 68.5 % Lymphocytes (%) (Auto) 22.2 % Monocytes (%) (Auto) 8.1 % Neutrophils # (Auto) 5.0 10^3/uL Lymphocytes # (Auto) 1.6 10^3/uL Monocytes # (Auto) 0.6 10^3/uL Absolute Immature Granulocyte (auto 0.01 10^3 u/L Eosinophils % 1.0 % Basophils % 0.1 % Basophils # 0.0 10^3/uL Eosinophil Count 0.1 10^3/uL Sodium Level 140 mmol/L Potassium Level 4.3 mmol/L Chloride Level 106.0 mmol/L Carbon Dioxide Level 24.5 mmol/L Anion Gap 13.8 Blood Urea Nitrogen 17 mg/dL Creatinine 1.32 mg/dL Estimated GFR () 47.0 BUN/Creatinine Ratio 12.0 Glucose Level 120 mg/dL Calcium Level 8.6 mg/dL Total Bilirubin 0.7 mg/dL Aspartate Amino Transf (AST/SGOT) 55 U/L Alanine Aminotransferase (ALT/SGPT) 35 U/L Alkaline Phosphatase 87 U/L Total Protein 6.5 g/dL Albumin 3.3 g/dL Globulin 3.2 Percent Immature Gran (Cell Imm) 0.10 % Current Medications Medications (Trade) Dose Ordered Sig/Bee Route PRN Reason Start Time Stop Time Status Last Admin Dose Admin Meperidine HCl (Demerol) 50 mg STAT STAT IV 04/28/18 13:56 04/29/18 11:00 DC 04/28/18 15:45 Ondansetron HCl (Zofran) 4 mg STAT STAT IV 04/28/18 13:56 04/28/18 17:20 DC 04/28/18 15:43 Potassium Chloride/Dextrose/ Sod Cl 1,000 ml @ 100 mls/hr Q10H STAT IV 04/28/18 15:04 04/29/18 01:03 DC 04/28/18 15:46 Hydromorphone HCl (Dilaudid) 1 mg Q4H PRN IV PAIN 8-10 04/28/18 15:30 04/29/18 11:00 DC 04/29/18 03:51 Ondansetron HCl (Zofran) 4 mg Q4H PRN IV NAUSEA / VOMITING 04/28/18 15:30 05/28/18 15:29 Ondansetron HCl (Zofran) 4 mg STK-MED ONCE .ROUTE 04/28/18 15:27 04/28/18 15:31 DC Meperidine HCl (Demerol) 50 mg STK-MED ONCE .ROUTE 04/28/18 15:28 04/28/18 15:31 DC Potassium Chloride/Dextrose/ Sod Cl 1,000 ml @ ud STK-MED ONCE .ROUTE 04/28/18 15:28 04/28/18 15:32 DC Aspirin (Aspirin Ec) 81 mg DAILY PO 04/29/18 09:00 04/29/18 09:00 DC Esomeprazole Magnesium (Nexium) 40 mg DAILY PO 04/29/18 09:00 04/29/18 09:00 DC Metoprolol Succinate (Toprol Xl) 50 mg DAILY PO 04/29/18 09:00 04/29/18 09:00 DC Pantoprazole Sodium (Protonix) 40 mg DAILY PO 04/29/18 09:00 05/29/18 08:59 Ramipril (Altace) 5 mg BID PO 04/28/18 21:00 05/28/18 20:59 04/28/18 21:44 Sertraline HCl (Zoloft) 100 mg HS PO 04/28/18 21:00 05/28/18 20:59 Hydralazine HCl (Apresoline) 10 mg Q4HR PRN IV HYPERTENSION 04/28/18 17:30 05/28/18 17:29 Ibuprofen (Motrin) 800 mg Q6H PRN PO PAIN 04/28/18 17:30 05/28/18 17:29 04/29/18 00:04 Dexamethasone Sodium Phosphate (Decadron) 20 mg STK-MED ONCE .ROUTE 04/29/18 06:56 04/29/18 07:00 DC Bupivacaine HCl (Sensorcaine 0.5% Vial) 5 mg STK-MED ONCE .ROUTE 04/29/18 06:56 04/29/18 07:00 DC Ropivacaine (Naropin 0.2% 40 Mg/20 ml Vial) 2 mg STK-MED ONCE .ROUTE 04/29/18 06:57 04/29/18 07:00 DC Lidocaine HCl (Lidocaine 2% Vial) 500 mg STK-MED ONCE .ROUTE 04/29/18 06:57 04/29/18 07:00 DC Neostigmine Methylsulfate (Neostigmine) 10 mg STK-MED ONCE .ROUTE 04/29/18 06:57 04/29/18 07:00 DC Dexmedetomidine HCl (Precedex) 200 mcg STK-MED ONCE IV 04/29/18 06:57 04/29/18 07:00 DC Ondansetron HCl (Zofran) 4 mg STK-MED ONCE .ROUTE 04/29/18 06:57 04/29/18 07:01 DC Rocuronium [place] (Zemuron) 100 mg STK-MED ONCE IV 04/29/18 06:57 04/29/18 07:01 DC Fentanyl Citrate (Sublimaze) 100 mcg STK-MED ONCE .ROUTE 04/29/18 06:58 04/29/18 07:01 DC Propofol (Diprivan) 200 mg STK-MED ONCE IV 04/29/18 06:58 04/29/18 07:01 DC Sodium Chloride 1,000 ml @ ud STK-MED ONCE .ROUTE 04/29/18 06:58 04/29/18 07:02 DC Sodium Chloride 100 ml @ ud STK-MED ONCE IV 04/29/18 06:58 04/29/18 07:02 DC Midazolam HCl (Versed) 1 mg STK-MED ONCE .ROUTE 04/29/18 06:59 04/29/18 07:03 DC Sodium Chloride (Sodium Chloride) 1,000 ml STK-MED ONCE IR 04/29/18 07:15 04/29/18 07:19 DC Vancomycin HCl 1500 mg/Sodium Chloride 500 ml @ 500 mls/hr OT ONCE IV 04/29/18 08:00 04/29/18 08:59 DC Vancomycin HCl 2 ml @ ud STK-MED ONCE .ROUTE 04/29/18 07:56 04/29/18 08:00 DC Sodium Chloride 250 ml @ ud STK-MED ONCE IV 04/29/18 07:56 04/29/18 08:00 DC Sodium Chloride (Sodium Chloride) 1,000 ml STK-MED ONCE IR 04/29/18 08:34 04/29/18 08:38 DC Sodium Chloride 250 ml @ ud STK-MED ONCE IV 04/29/18 08:43 04/29/18 08:46 DC Sodium Chloride (Sodium Chloride) 1,000 ml STK-MED ONCE IR 04/29/18 09:42 04/29/18 09:46 DC Tramadol HCl (Ultram) 50 mg Q6H PRN PO MILD PAIN 04/29/18 11:00 05/29/18 10:59 Tramadol HCl (Ultram) 100 mg Q6H PRN PO SEVERE PAIN 04/29/18 11:00 05/29/18 10:59 04/29/18 12:15 Docusate Sodium (Colace) 100 mg DAILY PO 04/30/18 09:00 05/30/18 08:59 Throat Lozenges (Cepacol Sore Throat Lozenge) 1 each PRN PRN MM SORE THROAT 04/29/18 11:00 05/29/18 10:59 Famotidine (Pepcid) 20 mg DAILY PO 04/30/18 09:00 05/30/18 08:59 Vancomycin HCl 1.5 gm/Sodium Chloride 500 ml @ 200 mls/hr Q12H IV 04/29/18 21:00 04/30/18 20:59 Aspirin (Aspirin Ec) 81 mg BID PO 04/29/18 21:00 05/29/18 20:59 Meperidine HCl (Demerol) 50 mg Q4HR PRN IV PAIN 04/29/18 11:00 04/29/18 11:00 DC Hydromorphone HCl (Dilaudid) 0.2 mg Q5MIN PRN IV PAIN MILD 04/29/18 11:00 04/30/18 10:59 UNV Ondansetron HCl (Zofran) 4 mg PRN PRN IV nv 04/29/18 11:00 05/04/18 10:59 UNV Course Sepsis Screening Results: Posi: NEGATIVE Sepsis Qualifier/Stage: NO DEFINITE RISK Duration or Total Time Spent w: 90 mins Vitals & review Data Vital Sign - Last 24 Hours 04/28/18 04/28/18 04/28/18 04/28/18 14:00 14:00 15:00 15:00 Pulse 73 70 Resp 17 17 18 18 B/P (MAP) 178/76 (110) 174/81 (112) Pulse Ox 96 98 04/28/18 04/28/18 04/28/18 04/28/18 16:00 16:00 17:11 20:00 Temp 97.2 97.2 Pulse 68 77 Resp 16 16 18 B/P (MAP) 144/71 (95) 141/69 (93) Pulse Ox 98 97 O2 Delivery Room Air O2 Flow Rate 2.00 04/28/18 04/28/18 04/29/18 04/29/18 21:44 23:24 00:22 03:39 Temp 97.8 97.2 97.8 97.2 Pulse 66 64 Resp 18 18 B/P (MAP) 144/71 109/58 (75) 108/58 (75) Pulse Ox 98 97 O2 Delivery Nasal Cannula O2 Flow Rate 2.00 04/29/18 04/29/18 04/29/18 04/29/18 08:05 08:10 08:18 10:43 Temp 98.9 98.9 Pulse 75 74 72 89 Resp 19 19 19 18 B/P (MAP) 138/62 (87) 153/71 (98) 96/61 (73) 132/55 (80) Pulse Ox 100 100 100 100 O2 Delivery Room Air Room Air Room Air Non-Rebreather O2 Flow Rate 10 04/29/18 04/29/18 04/29/18 10:58 11:13 11:30 Temp 97.8 98.1 97.8 98.1 Pulse 84 80 Resp 18 18 B/P (MAP) 127/67 (87) 115/58 (77) 115/58 Pulse Ox 94 96 O2 Delivery Nasal Canula Nasal Canula O2 Flow Rate 2 2 Intake and Output 04/28/18 04/28/18 04/29/18 15:01 23:01 07:01 Intake Total 540 ml 220 ml Output Total 300 ml 850 ml 150 ml Balance -300 ml -310 ml 70 ml Laboratory Tests Test 04/28/18 11:40 04/29/18 04:56 White Blood Count 5.1 10^3/uL 7.3 10^3/uL Red Blood Count 4.33 10^6/uL 4.02 10^6/uL Hemoglobin 12.9 g/dL 12.0 g/dL Hematocrit 37.7 % 35.8 % Mean Corpuscular Volume 87.1 fL 89.1 fL Mean Corpuscular Hemoglobin 29.8 pg 29.9 pg Mean Corpuscular Hemoglobin Concent 34.2 g/dL 33.5 g/dL Red Cell Distribution Width 13.1 % 13.1 % Platelet Count 135 10^3/uL 152 10^3/uL Mean Platelet Volume 9.7 fL 10.0 fL Neutrophils (%) (Auto) 69.0 % 68.5 % Lymphocytes (%) (Auto) 23.1 % 22.2 % Monocytes (%) (Auto) 6.3 % 8.1 % Neutrophils # (Auto) 3.5 10^3/uL 5.0 10^3/uL Lymphocytes # (Auto) 1.2 10^3/uL 1.6 10^3/uL Monocytes # (Auto) 0.3 10^3/uL 0.6 10^3/uL Absolute Immature Granulocyte (auto 0.02 10^3 u/L 0.01 10^3 u/L Eosinophils % 1.0 % 1.0 % Basophils % 0.2 % 0.1 % Basophils # 0.0 10^3/uL 0.0 10^3/uL Eosinophil Count 0.1 10^3/uL 0.1 10^3/uL Prothrombin Time 10.2 SEC Prothrombin Time INR (Non-Therap) 1.0 Activated Partial Thromboplast Time 21.5 SEC Sodium Level 141 mmol/L 140 mmol/L Potassium Level 3.9 mmol/L 4.3 mmol/L Chloride Level 105.0 mmol/L 106.0 mmol/L Carbon Dioxide Level 26.8 mmol/L 24.5 mmol/L Anion Gap 13.1 13.8 Blood Urea Nitrogen 15 mg/dL 17 mg/dL Creatinine 1.08 mg/dL 1.32 mg/dL Estimated GFR () 59.2 47.0 BUN/Creatinine Ratio 13.0 12.0 Glucose Level 106 mg/dL 120 mg/dL Calcium Level 8.7 mg/dL 8.6 mg/dL Total Bilirubin 0.7 mg/dL 0.7 mg/dL Aspartate Amino Transf (AST/SGOT) 24 U/L 55 U/L Alanine Aminotransferase (ALT/SGPT) 23 U/L 35 U/L Alkaline Phosphatase 85 U/L 87 U/L Troponin I < 0.02 ng/mL Total Protein 7.2 g/dL 6.5 g/dL Albumin 3.8 g/dL 3.3 g/dL Globulin 3.4 3.2 Percent Immature Gran (Cell Imm) 0.40 % 0.10 % Current Medications Medications (Trade) Dose Ordered Sig/Bee PRN Reason Start Time Stop Time Status Last Admin Aspirin (Aspirin Ec) 81 mg BID 04/29/18 21:00 05/29/18 20:59 Docusate Sodium (Colace) 100 mg DAILY 04/30/18 09:00 05/30/18 08:59 Famotidine (Pepcid) 20 mg DAILY 04/30/18 09:00 05/30/18 08:59 Hydralazine HCl (Apresoline) 10 mg Q4HR PRN HYPERTENSION 04/28/18 17:30 05/28/18 17:29 Hydromorphone HCl (Dilaudid) 0.2 mg Q5MIN PRN PAIN MILD 04/29/18 11:00 04/30/18 10:59 UNV Ibuprofen (Motrin) 800 mg Q6H PRN PAIN 04/28/18 17:30 05/28/18 17:29 04/29/18 00:04 Ondansetron HCl (Zofran) 4 mg PRN PRN nv 04/29/18 11:00 05/04/18 10:59 UNV Ondansetron HCl (Zofran) 4 mg Q4H PRN NAUSEA / VOMITING 04/28/18 15:30 05/28/18 15:29 Pantoprazole Sodium (Protonix) 40 mg DAILY 04/29/18 09:00 05/29/18 08:59 Ramipril (Altace) 5 mg BID 04/28/18 21:00 05/28/18 20:59 04/28/18 21:44 Sertraline HCl (Zoloft) 100 mg HS 04/28/18 21:00 05/28/18 20:59 Throat Lozenges (Cepacol Sore Throat Lozenge) 1 each PRN PRN SORE THROAT 04/29/18 11:00 05/29/18 10:59 Tramadol HCl (Ultram) 50 mg Q6H PRN MILD PAIN 04/29/18 11:00 05/29/18 10:59 Tramadol HCl (Ultram) 100 mg Q6H PRN SEVERE PAIN 04/29/18 11:00 05/29/18 10:59 04/29/18 12:15 Vancomycin HCl 1.5 gm/Sodium Chloride 500 ml @ 200 mls/hr Q12H 04/29/18 21:00 04/30/18 20:59 Sepsis Infection Criteria Pres: None LEVEL 1 SEPSIS INFECTION CRITE: ABX Therapy, Recent Invasive Procedure LEVEL 2-SIRS (LIST ALL THAT AP: None/Not assessed Cardiovascular Evidence: Not Assessed or None Hematologic Evidence: None/Not assessed Hepatic Evidence: None/Not assessed Metabolic Evidence: None/Not assessed Neurological Evidence: None/Not assessed Respiratory Evidence: None/Not assessed Renal Evidence: None/Not assessed O2 Sat by Pulse Oximetry: 97 Oxygen Flow Rate: 2.00 Assessment/Plan Assessment/Plan Assessment/Plan Patient is a 77 F PMH of Sjogren's Syndrome, Paget's disease, breast cancer, HTN , HLD, presenting with mechanical fall this AM from her porch and found to have 5th left metatarsal fx and Right Patella fx. Plan 1. Right Patella Fx: Ortho managing, cont pain control. Possible d/c today 2. Left fifth Metatarsal fx: Ortho managing. 3. HTN: cont home meds, good control 4. Anxiety: cont SSRI 5. Sjogren's Syndrome: outpatient f/u 6. Paget's Disease: outpatient infusion q 3months 7. PPx: MANJULA GARZA MD May 02, 2018 10:12
--- NOTE | 2018-05-02 11:17 | PRM.PN ---
Subjective Subjective Date: May 02, 2018 Time: 11:15 Subjective Pain controlled. BP controlled. No complaints. Possible d/c today. Pain ok Able to ambulate 90 feet with Walker VSS Will dc Appt 3 days Patient History: Hypertension VTE VTE Risk Total Score: 3 VTE Risk Score VTE Risk: Score 0-1 = Low Risk (Aggressive mobilization; early ambulation; no VTE prophylaxis required) Score 2: Moderate Risk (Intermittent/Pneumatic Compression Device OR Lovenox/Heparin/Coumadin) Score 3-4: High Risk (Intermittent/Pneumatic Compression Device AND Lovenox/Heparin/Coumadin) Score > or =5: Highest Risk (Intermittent/Pneumatic Compression Device AND Lovenox/Heparin/Coumadin) Review of Systems Allergies: Coded Allergies: Penicillins (Verified Allergy, Intermediate, RASH, 12/15/12) morphine (Verified Allergy, Mild, 11/06/14) Qazfhtn-Bbc-Rrt Reductase Inhibitor (Verified Allergy, Unknown, Hives, ) "FLU-LIKE SYMPTOMS" Scheduled Aspirin (Aspir 81), 1 TAB PO DAILY, (Reported) Esomeprazole Magnesium (Nexium), 1 CAP PO DAILY, (Reported) Pantoprazole Sodium (Protonix), 1 TAB PO DAILY, (Reported) Pravastatin Sodium (Pravastatin Sodium), 1 TAB PO HS, (Reported) Ramipril (Ramipril), 1 CAP PO BID, (Reported) Ramipril 5MG (Altace 5MG), 1 CAP PO DAILY, (Reported) Sertraline Hcl (Sertraline Hcl), 1 TAB PO HS, (Reported) Discontinued Medications Metoprolol Succinate (Metoprolol Succinate), 1 TAB PO DAILY, (Reported) Discontinued Reason: No Longer Taking Objective Vitals and I/O Vital Sign - Last 24 Hours 04/28/18 04/28/18 04/28/18 04/28/18 14:00 14:00 15:00 15:00 Pulse 73 70 Resp 17 17 18 18 B/P (MAP) 178/76 (110) 174/81 (112) Pulse Ox 96 98 04/28/18 04/28/18 04/28/18 04/28/18 16:00 16:00 17:11 20:00 Temp 97.2 97.2 Pulse 68 77 Resp 16 16 18 B/P (MAP) 144/71 (95) 141/69 (93) Pulse Ox 98 97 O2 Delivery Room Air O2 Flow Rate 2.00 04/28/18 04/28/18 04/29/18 04/29/18 21:44 23:24 00:22 03:39 Temp 97.8 97.2 97.8 97.2 Pulse 66 64 Resp 18 18 B/P (MAP) 144/71 109/58 (75) 108/58 (75) Pulse Ox 98 97 O2 Delivery Nasal Cannula O2 Flow Rate 2.00 04/29/18 04/29/18 04/29/18 04/29/18 08:05 08:10 08:18 10:43 Temp 98.9 98.9 Pulse 75 74 72 89 Resp 19 18 B/P (MAP) 138/62 (87) 153/71 (98) 96/61 (73) 132/55 (80) Pulse Ox 100 100 100 100 O2 Delivery Room Air Room Air Room Air Non-Rebreather O2 Flow Rate 10 04/29/18 04/29/18 04/29/18 10:58 11:13 11:30 Temp 97.8 98.1 97.8 98.1 Pulse 84 80 Resp 18 18 B/P (MAP) 127/67 (87) 115/58 (77) 115/58 Pulse Ox 94 96 O2 Delivery Nasal Canula Nasal Canula O2 Flow Rate 2 2 Intake and Output 04/28/18 04/28/18 04/29/18 15:01 23:01 07:01 Intake Total 540 ml 220 ml Output Total 300 ml 850 ml 150 ml Balance -300 ml -310 ml 70 ml General: Alert, Oriented X3, Cooperative, No acute distress HEENT: Atraumatic, PERRLA, EOMI, Mucous membr. moist/pink Neck: Supple, No JVD Lungs: Clear to auscultation, Normal air movement Heart: Regular rate, Normal S1, Normal S2, No murmurs Abdomen: Normal bowel sounds, Soft, No tenderness Extremities: Normal pulses, Other (right splint/dressing in place right leg) Neuro: Normal speech, Strength at 5/5 X4 ext, Normal tone, Sensation intact, Cranial nerves 3-12 NL Psych/Mental Status: Mental status NL, Mood NL All Results(Lab/Rad) Laboratory Tests Test 04/29/18 04:56 White Blood Count 7.3 10^3/uL Red Blood Count 4.02 10^6/uL Hemoglobin 12.0 g/dL Hematocrit 35.8 % Mean Corpuscular Volume 89.1 fL Mean Corpuscular Hemoglobin 29.9 pg Mean Corpuscular Hemoglobin Concent 33.5 g/dL Red Cell Distribution Width 13.1 % Platelet Count 152 10^3/uL Mean Platelet Volume 10.0 fL Neutrophils (%) (Auto) 68.5 % Lymphocytes (%) (Auto) 22.2 % Monocytes (%) (Auto) 8.1 % Neutrophils # (Auto) 5.0 10^3/uL Lymphocytes # (Auto) 1.6 10^3/uL Monocytes # (Auto) 0.6 10^3/uL Absolute Immature Granulocyte (auto 0.01 10^3 u/L Eosinophils % 1.0 % Basophils % 0.1 % Basophils # 0.0 10^3/uL Eosinophil Count 0.1 10^3/uL Sodium Level 140 mmol/L Potassium Level 4.3 mmol/L Chloride Level 106.0 mmol/L Carbon Dioxide Level 24.5 mmol/L Anion Gap 13.8 Blood Urea Nitrogen 17 mg/dL Creatinine 1.32 mg/dL Estimated GFR () 47.0 BUN/Creatinine Ratio 12.0 Glucose Level 120 mg/dL Calcium Level 8.6 mg/dL Total Bilirubin 0.7 mg/dL Aspartate Amino Transf (AST/SGOT) 55 U/L Alanine Aminotransferase (ALT/SGPT) 35 U/L Alkaline Phosphatase 87 U/L Total Protein 6.5 g/dL Albumin 3.3 g/dL Globulin 3.2 Percent Immature Gran (Cell Imm) 0.10 % Current Medications Medications (Trade) Dose Ordered Sig/Bee Route PRN Reason Start Time Stop Time Status Last Admin Dose Admin Meperidine HCl (Demerol) 50 mg STAT STAT IV 04/28/18 13:56 04/29/18 11:00 DC 04/28/18 15:45 Ondansetron HCl (Zofran) 4 mg STAT STAT IV 04/28/18 13:56 04/28/18 17:20 DC 04/28/18 15:43 Potassium Chloride/Dextrose/ Sod Cl 1,000 ml @ 100 mls/hr Q10H STAT IV 04/28/18 15:04 04/29/18 01:03 DC 04/28/18 15:46 Hydromorphone HCl (Dilaudid) 1 mg Q4H PRN IV PAIN 8-10 04/28/18 15:30 04/29/18 11:00 DC 04/29/18 03:51 Ondansetron HCl (Zofran) 4 mg Q4H PRN IV NAUSEA / VOMITING 04/28/18 15:30 05/28/18 15:29 Ondansetron HCl (Zofran) 4 mg STK-MED ONCE .ROUTE 04/28/18 15:27 04/28/18 15:31 DC Meperidine HCl (Demerol) 50 mg STK-MED ONCE .ROUTE 04/28/18 15:28 04/28/18 15:31 DC Potassium Chloride/Dextrose/ Sod Cl 1,000 ml @ ud STK-MED ONCE .ROUTE 04/28/18 15:28 04/28/18 15:32 DC Aspirin (Aspirin Ec) 81 mg DAILY PO 04/29/18 09:00 04/29/18 09:00 DC Esomeprazole Magnesium (Nexium) 40 mg DAILY PO 04/29/18 09:00 04/29/18 09:00 DC Metoprolol Succinate (Toprol Xl) 50 mg DAILY PO 04/29/18 09:00 04/29/18 09:00 DC Pantoprazole Sodium (Protonix) 40 mg DAILY PO 04/29/18 09:00 05/29/18 08:59 Ramipril (Altace) 5 mg BID PO 04/28/18 21:00 05/28/18 20:59 04/28/18 21:44 Sertraline HCl (Zoloft) 100 mg HS PO 04/28/18 21:00 05/28/18 20:59 Hydralazine HCl (Apresoline) 10 mg Q4HR PRN IV HYPERTENSION 04/28/18 17:30 05/28/18 17:29 Ibuprofen (Motrin) 800 mg Q6H PRN PO PAIN 04/28/18 17:30 05/28/18 17:29 04/29/18 00:04 Dexamethasone Sodium Phosphate (Decadron) 20 mg STK-MED ONCE .ROUTE 04/29/18 06:56 04/29/18 07:00 DC Bupivacaine HCl (Sensorcaine 0.5% Vial) 5 mg STK-MED ONCE .ROUTE 04/29/18 06:56 2/8/19 07:00 DC Ropivacaine (Naropin 0.2% 40 Mg/20 ml Vial) 2 mg STK-MED ONCE .ROUTE 04/29/18 06:57 04/29/18 07:00 DC Lidocaine HCl (Lidocaine 2% Vial) 500 mg STK-MED ONCE .ROUTE 04/29/18 06:57 04/29/18 07:00 DC Neostigmine Methylsulfate (Neostigmine) 10 mg STK-MED ONCE .ROUTE 04/29/18 06:57 04/29/18 07:00 DC Dexmedetomidine HCl (Precedex) 200 mcg STK-MED ONCE IV 04/29/18 06:57 04/29/18 07:00 DC Ondansetron HCl (Zofran) 4 mg STK-MED ONCE .ROUTE 04/29/18 06:57 04/29/18 07:01 DC Rocuronium Margaret (Zemuron) 100 mg STK-MED ONCE IV 04/29/18 06:57 04/29/18 07:01 DC Fentanyl Citrate (Sublimaze) 100 mcg STK-MED ONCE .ROUTE 04/29/18 06:58 04/29/18 07:01 DC Propofol (Diprivan) 200 mg STK-MED ONCE IV 04/29/18 06:58 04/29/18 07:01 DC Sodium Chloride 1,000 ml @ ud STK-MED ONCE .ROUTE 04/29/18 06:58 04/29/18 07:02 DC Sodium Chloride 100 ml @ ud STK-MED ONCE IV 04/29/18 06:58 04/29/18 07:02 DC Midazolam HCl (Versed) 1 mg STK-MED ONCE .ROUTE 04/29/18 06:59 04/29/18 07:03 DC Sodium Chloride (Sodium Chloride) 1,000 ml STK-MED ONCE IR 04/29/18 07:15 04/29/18 07:19 DC Vancomycin HCl 1500 mg/Sodium Chloride 500 ml @ 500 mls/hr OT ONCE IV 04/29/18 08:00 04/29/18 08:59 DC Vancomycin HCl 2 ml @ ud STK-MED ONCE .ROUTE 04/29/18 07:56 04/29/18 08:00 DC Sodium Chloride 250 ml @ ud STK-MED ONCE IV 04/29/18 07:56 04/29/18 08:00 DC Sodium Chloride (Sodium Chloride) 1,000 ml STK-MED ONCE IR 04/29/18 08:34 04/29/18 08:38 DC Sodium Chloride 250 ml @ ud STK-MED ONCE IV 04/29/18 08:43 04/29/18 08:46 DC Sodium Chloride (Sodium Chloride) 1,000 ml STK-MED ONCE IR 04/29/18 09:42 04/29/18 09:46 DC Tramadol HCl (Ultram) 50 mg Q6H PRN PO MILD PAIN 04/29/18 11:00 05/29/18 10:59 Tramadol HCl (Ultram) 100 mg Q6H PRN PO SEVERE PAIN 04/29/18 11:00 05/29/18 10:59 04/29/18 12:15 Docusate Sodium (Colace) 100 mg DAILY PO 04/30/18 09:00 05/30/18 08:59 Throat Lozenges (Cepacol Sore Throat Lozenge) 1 each PRN PRN MM SORE THROAT 04/29/18 11:00 05/29/18 10:59 Famotidine (Pepcid) 20 mg DAILY PO 04/30/18 09:00 05/30/18 08:59 Vancomycin HCl 1.5 gm/Sodium Chloride 500 ml @ 200 mls/hr Q12H IV 04/29/18 21:00 04/30/18 20:59 Aspirin (Aspirin Ec) 81 mg BID PO 04/29/18 21:00 05/29/18 20:59 Meperidine HCl (Demerol) 50 mg Q4HR PRN IV PAIN 04/29/18 11:00 04/29/18 11:00 DC Hydromorphone HCl (Dilaudid) 0.2 mg Q5MIN PRN IV PAIN MILD 04/29/18 11:00 04/30/18 10:59 UNV Ondansetron HCl (Zofran) 4 mg PRN PRN IV nv 04/29/18 11:00 05/04/18 10:59 UNV Course Sepsis Screening Results: Posi: NEGATIVE Sepsis Qualifier/Stage: NO DEFINITE RISK Duration or Total Time Spent w: 90 mins Vitals & review Data Vital Sign - Last 24 Hours 2/704/28/18 04/28/18 04/28/18 14:00 14:00 15:00 15:00 Pulse 73 70 Resp 17 17 18 18 B/P (MAP) 178/76 (110) 174/81 (112) Pulse Ox 96 98 04/28/18 04/28/18 04/28/18 04/28/18 16:00 16:00 17:11 20:00 Temp 97.2 97.2 Pulse 68 77 Resp 16 16 18 B/P (MAP) 144/71 (95) 141/69 (93) Pulse Ox 98 97 O2 Delivery Room Air O2 Flow Rate 2.00 04/28/18 04/28/18 04/29/18 04/29/18 21:44 23:24 00:22 03:39 Temp 97.8 97.2 97.8 97.2 Pulse 66 64 Resp 18 18 B/P (MAP) 144/71 109/58 (75) 108/58 (75) Pulse Ox 98 97 O2 Delivery Nasal Cannula O2 Flow Rate 2.00 04/29/18 04/29/18 04/29/18 04/29/18 08:05 08:10 08:18 10:43 Temp 98.9 98.9 Pulse 75 74 72 89 Resp 19 19 19 18 B/P (MAP) 138/62 (87) 153/71 (98) 96/61 (73) 132/55 (80) Pulse Ox 100 100 100 100 O2 Delivery Room Air Room Air Room Air Non-Rebreather O2 Flow Rate 10 04/29/18 04/29/18 04/29/18 10:58 11:13 11:30 Temp 97.8 98.1 97.8 98.1 Pulse 84 80 Resp 18 18 B/P (MAP) 127/67 (87) 115/58 (77) 115/58 Pulse Ox 94 96 O2 Delivery Nasal Canula Nasal Canula O2 Flow Rate 2 2 Intake and Output 04/28/18 04/28/18 04/29/18 15:01 23:01 07:01 Intake Total 540 ml 220 ml Output Total 300 ml 850 ml 150 ml Balance -300 ml -310 ml 70 ml Laboratory Tests Test 04/28/18 11:40 04/29/18 04:56 White Blood Count 5.1 10^3/uL 7.3 10^3/uL Red Blood Count 4.33 10^6/uL 4.02 10^6/uL Hemoglobin 12.9 g/dL 12.0 g/dL Hematocrit 37.7 % 35.8 % Mean Corpuscular Volume 87.1 fL 89.1 fL Mean Corpuscular Hemoglobin 29.8 pg 29.9 pg Mean Corpuscular Hemoglobin Concent 34.2 g/dL 33.5 g/dL Red Cell Distribution Width 13.1 % 13.1 % Platelet Count 135 10^3/uL 152 10^3/uL Mean Platelet Volume 9.7 fL 10.0 fL Neutrophils (%) (Auto) 69.0 % 68.5 % Lymphocytes (%) (Auto) 23.1 % 22.2 % Monocytes (%) (Auto) 6.3 % 8.1 % Neutrophils # (Auto) 3.5 10^3/uL 5.0 10^3/uL Lymphocytes # (Auto) 1.2 10^3/uL 1.6 10^3/uL Monocytes # (Auto) 0.3 10^3/uL 0.6 10^3/uL Absolute Immature Granulocyte (auto 0.02 10^3 u/L 0.01 10^3 u/L Eosinophils % 1.0 % 1.0 % Basophils % 0.2 % 0.1 % Basophils # 0.0 10^3/uL 0.0 10^3/uL Eosinophil Count 0.1 10^3/uL 0.1 10^3/uL Prothrombin Time 10.2 SEC Prothrombin Time INR (Non-Therap) 1.0 Activated Partial Thromboplast Time 21.5 SEC Sodium Level 141 mmol/L 140 mmol/L Potassium Level 3.9 mmol/L 4.3 mmol/L Chloride Level 105.0 mmol/L 106.0 mmol/L Carbon Dioxide Level 26.8 mmol/L 24.5 mmol/L Anion Gap 13.1 13.8 Blood Urea Nitrogen 15 mg/dL 17 mg/dL Creatinine 1.08 mg/dL 1.32 mg/dL Estimated GFR () 59.2 47.0 BUN/Creatinine Ratio 13.0 12.0 Glucose Level 106 mg/dL 120 mg/dL Calcium Level 8.7 mg/dL 8.6 mg/dL Total Bilirubin 0.7 mg/dL 0.7 mg/dL Aspartate Amino Transf (AST/SGOT) 24 U/L 55 U/L Alanine Aminotransferase (ALT/SGPT) 23 U/L 35 U/L Alkaline Phosphatase 85 U/L 87 U/L Troponin I < 0.02 ng/mL Total Protein 7.2 g/dL 6.5 g/dL Albumin 3.8 g/dL 3.3 g/dL Globulin 3.4 3.2 Percent Immature Gran (Cell Imm) 0.40 % 0.10 % Current Medications Medications (Trade) Dose Ordered Sig/Bee PRN Reason Start Time Stop Time Status Last Admin Aspirin (Aspirin Ec) 81 mg BID 04/29/18 21:00 05/29/18 20:59 Docusate Sodium (Colace) 100 mg DAILY 04/30/18 09:00 05/30/18 08:59 Famotidine (Pepcid) 20 mg DAILY 04/30/18 09:00 05/30/18 08:59 Hydralazine HCl (Apresoline) 10 mg Q4HR PRN HYPERTENSION 04/28/18 17:30 05/28/18 17:29 Hydromorphone HCl (Dilaudid) 0.2 mg Q5MIN PRN PAIN MILD 04/29/18 11:00 04/30/18 10:59 UNV Ibuprofen (Motrin) 800 mg Q6H PRN PAIN 04/28/18 17:30 05/28/18 17:29 04/29/18 00:04 Ondansetron HCl (Zofran) 4 mg PRN PRN nv 04/29/18 11:00 05/04/18 10:59 UNV Ondansetron HCl (Zofran) 4 mg Q4H PRN NAUSEA / VOMITING 04/28/18 15:30 05/28/18 15:29 Pantoprazole Sodium (Protonix) 40 mg DAILY 04/29/18 09:00 05/29/18 08:59 Ramipril (Altace) 5 mg BID 04/28/18 21:00 05/28/18 20:59 04/28/18 21:44 Sertraline HCl (Zoloft) 100 mg HS 04/28/18 21:00 05/28/18 20:59 Throat Lozenges (Cepacol Sore Throat Lozenge) 1 each PRN PRN SORE THROAT 04/29/18 11:00 05/29/18 10:59 Tramadol HCl (Ultram) 50 mg Q6H PRN MILD PAIN 04/29/18 11:00 05/29/18 10:59 Tramadol HCl (Ultram) 100 mg Q6H PRN SEVERE PAIN 04/29/18 11:00 05/29/18 10:59 04/29/18 12:15 Vancomycin HCl 1.5 gm/Sodium Chloride 500 ml @ 200 mls/hr Q12H 04/29/18 21:00 04/30/18 20:59 Sepsis Infection Criteria Pres: None LEVEL 1 SEPSIS INFECTION CRITE: ABX Therapy, Recent Invasive Procedure LEVEL 2-SIRS (LIST ALL THAT AP: None/Not assessed Cardiovascular Evidence: Not Assessed or None Hematologic Evidence: None/Not assessed Hepatic Evidence: None/Not assessed Metabolic Evidence: None/Not assessed Neurological Evidence: None/Not assessed Respiratory Evidence: None/Not assessed Renal Evidence: None/Not assessed O2 Sat by Pulse Oximetry: 95 Oxygen Flow Rate: 2.00 Assessment/Plan Assessment/Plan Assessment/Plan 1. Right Patella Fx: Ortho managing, cont pain control. Possible d/c today 2. Left fifth Metatarsal fx: Ortho managing. 3. HTN: cont home meds, good control 4. Anxiety: cont SSRI 5. Sjogren's Syndrome: outpatient f/u 6. Paget's Disease: outpatient infusion q 3months 7. PPx: PPI Plan 1. Right Patella Fx: Ortho managing, cont pain control. Possible d/c today 2. Left fifth Metatarsal fx: Ortho managing. 3. HTN: cont home meds, good control 4. Anxiety: cont SSRI 5. Sjogren's Syndrome: outpatient f/u 6. Paget's Disease: outpatient infusion q 3months 7. PPx: PPI JOHN JAMESON MD May 02, 2018 11:17
[2018-05-02] MEDS ORDERED: TRAM50TA PO (12:17)
--- NOTE | 2018-05-02 12:30 | DSH ---
DATE OF DISCHARGE: 05/02/2018 ADMITTING DIAGNOSES: Include: 1. Closed displaced fracture, right patella. 2. Left fifth metatarsal fracture. 3. Urinary tract infection. DISCHARGE DIAGNOSES: Include: 1. Closed displaced fracture, right patella. 2. Left fifth metatarsal fracture. 3. Urinary tract infection. 4. Postoperative anemia secondary to surgical blood loss expected. SUMMARY OF ADMISSION: The patient is a 77-year-old female, previous community ambulator without assistance, fell at home during the night on the day of admission and injured the right knee as well as her left foot. The patient's x-rays revealed a displaced mid substance fracture of the right patella as well as a nondisplaced fracture of the base of the left fifth metatarsal. Otherwise, the patient had no other injuries. On 04/29, the patient was taken to the operating room where she underwent open reduction and internal fixation of her right patellar fracture. Postoperatively, the patient's hemoglobin dropped to 10, felt to be secondary to surgical blood loss expected. The patient was asymptomatic. The patient has been on foot pump, SCDs as well as aspirin and early ambulation for DVT prophylaxis. The patient has had physical therapy as well as occupational therapy for gait training as well as ADLs. On discharge, the patient is afebrile. She is tolerating a regular diet well. Pain is well controlled with tramadol. The patient can ambulate at least 90 feet according to her with a walker. She is 50% weightbearing on the right side. The patient will be instructed to leave her Prevena dressing intact as well as a knee immobilizer on the right knee. She can 50% weightbear on the right. On the left, the patient can weightbear as tolerated and use her cast boot. The patient will be given a prescription for tramadol for the pain. She will be seen back in my office in 3 days. Hank Alvarado MD DR: DARREN/millicent JOB# [id number]
--- NOTE | 2018-05-02 12:36 | NUR ---
THIS NURSE DISCONTINUED PT MITCHELL. BALLOON DEFLATED PROPERLY, MITCHELL TUBE IN TACT. NO RESISTANCE UPON EXIT FROM [facility]. 350ML LEFT IN BAG.
[2018-05-02 12:45] VITALS: BP 110/55
[2018-05-02 13:41] VITALS: BP 110/55
--- NOTE | 2018-05-02 16:39 | NUR ---
DISCHARGE PT DC AT THIS TIME. PT UNDERSTANDS ALL DC INSTRUCTIONS INCLUDING FOLLOW UP APPOINTMENT. WOUND PICS NOT TAKEN BECAUSE DRESSING IS TO LEAVING DRESSING INTACT AND BRACE IS TO STAY ON UNTIL FOLLOW UP APPOINTMENT. NO OTHER QUESTION OR CONCERNS FROM PT. PT LEAVES FLOOR BY WHEELCHAIR TO PRIVATE VEHICLE ACCOMPANIED BY .
== END 2018-05-02 13:20 | disposition home or self-care (01) | DRG 516 ==
LOC: ER 11:16 → MS 15:03 → EDPENDDISTM 05-02 12:45
PROVIDERS: ADMIT Orthopaedic Surgery; ATTEND Orthopaedic Surgery
PROC: 0QSD04Z Reposition Right Patella with Internal Fixation Device, Open Approach (ICD-10-PCS; principal; 2018-04-29 08:52)
DX: S82.091A Other fracture of right patella, initial encounter for closed fracture (principal); D62 Acute posthemorrhagic anemia; M25.00 Hemarthrosis, unspecified joint; N39.0 Urinary tract infection, site not specified; S92.355A Nondisplaced fracture of fifth metatarsal bone, left foot, initial encounter for closed fracture; I10 Essential (primary) hypertension; F41.9 Anxiety disorder, unspecified; M35.00 Sjogren syndrome, unspecified; M88.9 Osteitis deformans of unspecified bone; E78.5 Hyperlipidemia, unspecified; W18.30XA Fall on same level, unspecified, initial encounter; M19.90 Unspecified osteoarthritis, unspecified site; Z90.49 Acquired absence of other specified parts of digestive tract; Z88.5 Allergy status to narcotic agent; Z88.0 Allergy status to penicillin; Z88.8 Allergy status to other drugs, medicaments and biological substances; Z85.3 Personal history of malignant neoplasm of breast; Y93.89 Activity, other specified; Y92.89 Other specified places as the place of occurrence of the external cause; Y99.8 Other external cause status
CPT/HCPCS: 36415; 64447; 64450; 70450; 71045; 72170; 73502; 73560; 76000; 80053; 80202; 84484; 85025; 85027; 85610; 85730; 90715; 93005; 97161; 99285; A4217; A4338; G0378; J1100; J1170; J2001; J2175; J2250; J2405; J2710; J2795; J3010; J3490; J7030; J7040; J7050; J7070; J7120; 73562-RT; 73630-LT; 97116-GP; 97530-GP; 97760-GP; C1713; J3370

== ENCOUNTER 2018-05-07 14:48 | Emergency (ER) | payer MEDICARE, OTHER ==
[~2018-05-07] VITALS: Ht 162.6 cm; Wt 90.7 kg
[~2018-05-07 14:48] MED LIST changes: +ASPI-484 PO; +PANT40TA3 PO; +RAMI5CAP57 PO; +SERT100T5 PO; +TRAM50TA PO
[2018-05-07 15:14] VITALS: BP 197/88
[2018-05-07] MEDS ORDERED: SOLU-MEDROL IM STA (15:26)
[2018-05-07] MEDS ORDERED: DECADRON IH STA (15:26)
[2018-05-07] MEDS ORDERED: DUONEB 0.5 MG-3 MG/3 ML SOLN IH STA (15:26)
--- NOTE | 2018-05-07 15:32 | ER.PDOC ---
General Chief Complaint: General Complaint Stated Complaint: BLOOD PRESSURE TRAVEL OUT OF US: No Time seen by MD: 15:28 Source: patient Exam Limitations: no limitations History of Present Illness Initial Comments Elevated blood pressure today, cough and wheezing for past 6 days. No fever or chills. Severity: moderate Associated Symptoms: cough Allergies: Coded Allergies: Penicillins (Verified Allergy, Intermediate, RASH, 12/15/12) morphine (Verified Allergy, Mild, 11/06/14) [id number]-Dax Reductase Inhibitor (Verified Allergy, Unknown, Hives, ) "FLU-LIKE SYMPTOMS" Home Meds Reported Medications Tramadol Hcl (TRAMADOL HCL) 50 Mg Tablet, 1-2 TAB PO Q6HR for PAIN, #20 TAB 05/02/18 Aspirin (ASPIR 81) 81 Mg Tablet.dr, 1 TAB PO DAILY, #30 TAB 5 Refills 04/28/18 Sertraline Hcl (SERTRALINE HCL) 100 Mg Tablet, 1 TAB PO HS 04/28/18 Pantoprazole Sodium (PROTONIX) 40 Mg Tablet.dr, 1 TAB PO DAILY, #30 TAB 5 Refills 04/28/18 Ramipril (RAMIPRIL) 5 Mg Capsule, 1 CAP PO BID, #30 CAP 5 Refills 04/28/18 Pravastatin Sodium (PRAVASTATIN SODIUM) 10 Mg Tablet, 1 TAB PO HS, #90 TAB 1 Refill 08/09/15 Ramipril 5MG (ALTACE 5MG) 5 Mg Capsule, 1 CAP PO DAILY, #30 CAP 5 Refills 11/06/14 Esomeprazole Magnesium (NEXIUM) 40 Mg Capsule.dr, 1 CAP PO DAILY, #30 CAP 5 Refills 11/06/14 Discontinued Reported Medications Metoprolol Succinate (METOPROLOL SUCCINATE) 50 Mg Tab.er.24h, 1 TAB PO DAILY, # 30 TAB 5 Refills 11/06/14 Past Medical History Medical History: hypertension Surgical History: cholecystectomy Social History Smoking: non-smoker Alcohol Use: none Drug Use: none Review of Systems Constitutional: no symptoms reported EENTM: no symptoms reported Respiratory: see HPI Cardiovascular: see HPI Gastrointestinal: no symptoms reported All Other Systems: Reviewed and Negative Physical Exam General Appearance: No Apparent Distress, WD/WN Neck: Non-Tender, Full Range of Motion, Supple, Normal Inspection Respiratory: chest non-tender, no respiratory distress, no accessory muscle use , wheezing (mild) CVS: reg rate & rhythm, no murmur, no gallop, pulses nml, nml capillary refill Gastrointestinal: Normal Bowel Sounds, No Organomegaly, No Pulsatile Mass, Non Tender Back: Normal Inspection, No CVA Tenderness, No Vertebral Tenderness Extremities: Normal Range of Motion, Other (right knee immobilized from recent knee surgery.) 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 NML as Tested Skin: Normal Color Results/Orders Results/Orders Laboratory Tests Test 05/07/18 15:35 05/07/18 16:15 White Blood Count 3.0 10^3/uL (4.5-11.0) Red Blood Count 3.40 10^6/uL (4.00-5.20) Hemoglobin 10.1 g/dL (12.0-15.0) Hematocrit 30.0 % (36.0-46.0) Mean Corpuscular Volume 88.2 fL (78-100) Mean Corpuscular Hemoglobin 29.7 pg (26-34) Mean Corpuscular Hemoglobin Concent 33.7 g/dL (33-37) Red Cell Distribution Width 13.2 % (11.5-14.5) Platelet Count 145 10^3/uL (150-400) Mean Platelet Volume 8.8 fL (7.8-11.0) Neutrophils (%) (Auto) 69.7 % (41.0-85.0) Lymphocytes (%) (Auto) 17.5 % (24.0-44.0) Monocytes (%) (Auto) 9.8 % (5.0-12.0) Neutrophils # (Auto) 2.1 10^3/uL (1.8-7.7) Lymphocytes # (Auto) 0.5 10^3/uL (1.0-4.8) Monocytes # (Auto) 0.3 10^3/uL (0.3-0.8) Eosinophils % 2.7 % (0.0-5.0) Basophils % 0.3 % (0.0-0.2) Basophils # 0.0 10^3/uL (0.0-0.1) Eosinophil Count 0.1 10^3/uL (0.0-0.2) Prothrombin Time 10.1 SEC (9.8-11.9) Prothrombin Time INR (Non-Therap) 1.0 Activated Partial Thromboplast Time 25.2 SEC (24.67-30.72) Sodium Level 145 mmol/L (132-145) Potassium Level 3.1 mmol/L (3.6-5.2) Chloride Level 106.0 mmol/L (96-109) Carbon Dioxide Level 27.8 mmol/L (20.0-32) Anion Gap 14.3 Blood Urea Nitrogen 13 mg/dL (7-18) Creatinine 1.39 mg/dL (0.59-1.40) Estimated GFR () 44.3 (>/=60) BUN/Creatinine Ratio 9.0 Glucose Level 108 mg/dL (70-110) Calcium Level 8.6 mg/dL (8.4-10.5) Total Bilirubin 0.7 mg/dL (0.2-1.0) Aspartate Amino Transf (AST/SGOT) 24 U/L (0-35) Alanine Aminotransferase (ALT/SGPT) 23 U/L (12-78) Alkaline Phosphatase 86 U/L (50-136) Total Creatine Kinase 72 U/L (26-192) Troponin I < 0.02 ng/mL (0.00-0.05) Pro-B-Type Natriuretic Peptide 2157 pg/mL (0-450) Total Protein 6.5 g/dL (6.4-8.2) Albumin 3.1 g/dL (3.4-5.0) Globulin 3.4 Influenza Type A Antigen POSITIVE (NEG) Influenza B Immunofluorescence NEGATIVE (NEG) Administered Medications Medications (Trade) Dose Ordered Sig/Bee Route PRN Reason Start Time Stop Time Status Last Admin Dose Admin Albuterol/ Ipratropium (Duoneb 0.5 Mg-3 Mg/3 ml Soln) 3 ml STAT STAT IH 05/07/18 15:26 05/07/18 15:28 DC 05/07/18 15:51 Dexamethasone Sodium Phosphate (Decadron) 4 mg STAT STAT IH 05/07/18 15:26 05/07/18 15:28 DC 05/07/18 15:51 Methylprednisolone Sodium Succinate (Solu-Medrol) 125 mg STAT STAT IM 05/07/18 15:26 05/07/18 15:28 DC 05/07/18 15:40 Clonidine (Catapres) 0.1 mg STAT STAT PO 05/07/18 16:25 05/07/18 16:27 DC 05/07/18 16:29 Progress Progress Feels better with breathing treatment EKG/XRAY/CT/US EKG: NSR XRAY: chest (No active disease) Departure Time of Disposition: 17:26 Disposition: 01 HOME, SELF-CARE Impression: Primary Impression: Influenza A Condition: Stable Referrals: KAYLIN FLORENCE DO (PCP) PRIMARY CARE PROVIDER Additional Instructions: Tamiflu Mucinex DM OTC as directed Albuterol HFA F/U with PCP in 2-3 days Duration or Time Spent with Pa: 60 mins YONG,CASSANDRA Shafer MD May 07, 2018 15:32
[2018-05-07] MEDS ORDERED: SOLU-MEDROL ONE (15:40)
[2018-05-07] MEDS ORDERED: DECADRON ONE (15:40)
[2018-05-07] MEDS ORDERED: DUONEB 0.5 MG-3 MG/3 ML SOLN IH ONE (15:40)
--- NOTE | 2018-05-07 15:41 | PCM.EKG ---
[facility] Test Date: 2018-05-07 Test Time: 15:39:08 Pat Name: JIGNESH CHRISTY Department: [id number] Room: Gender: [place] Worker: [facility] : 1940 Requested By: CASSANDRA BEACH Order Number: [id number] Reading MD: Cassandra BEACH Measurements Intervals [place] Rate: 76 P: 80 NE: 124 QRS: 67 QRSD: 80 T: 74 QT: 408 QTc: 459 Interpretive Statements Normal sinus rhythm Nonspecific ST abnormality Abnormal ECG Compared to ECG 04/28/2018 11:34:06 No significant changes Electronically Signed On 05-07-2018 23:55:20 [employer] by Cassandra BEACH Please click the below link to view image of tracing.
[2018-05-07 15:46] LABS: BASOPHIL % 0.3 % (0.0-0.2); EOSINOPHIL # 0.1 10^3/uL (0.0-0.2); EOSINOPHIL % 2.7 % (0.0-5.0); HEMOGLOBIN 10.1 g/dL (12.0-15.0); LYMPHOCYTES # 0.5 10^3/uL (1.0-4.8); LYMPHOCYTES % 17.5 % (24.0-44.0); MEAN CELL HGB 29.7 pg (26-34); MEAN CELL HGB CONCENTRATION 33.7 g/dL (33-37); MEAN CORP VOLUME 88.2 fL (78-100); MEAN PLATELET VOLUME 8.8 fL (7.8-11.0); MONOCYTES # 0.3 10^3/uL (0.3-0.8); MONOCYTES % 9.8 % (5.0-12.0); NEUTROPHIL # 2.1 10^3/uL (1.8-7.7); NEUTROPHILS % 69.7 % (41.0-85.0); PLATELET COUNT 145 10^3/uL (150-400); RED CELL DISTRIBUTION WIDTH 13.2 % (11.5-14.5)
[2018-05-07 16:13] LABS: ALKALINE PHOSPHATASE 86 U/L (50-136); ASPARTATE AMINO TRANSFERASE 24 U/L (0-35); CALCIUM 8.6 mg/dL (8.4-10.5); CARBON DIOXIDE 27.8 mmol/L (20.0-32); GLUCOSE 108 mg/dL (70-110)
[2018-05-07] MEDS ORDERED: CATAPRES PO STA (16:25)
[2018-05-07] MEDS ORDERED: CATAPRES ONE (16:26)
[2018-05-07 16:28] LABS: ALANINE AMINOTRANSFERASE(ML) 23 U/L (12-78)
--- NOTE | 2018-05-07 17:05 | DIREP ---
PROCEDURE:CHEST 1 VIEW COMPARISON:[facility], CR, XRAY CHEST SINGLE VW, 04/28/2018, 12:23 PM. INDICATIONS:Cough FINDINGS: LUNGS/PLEURA:No significant pulmonary parenchymal abnormalities. No effusions. VASCULATURE:Normal. Unremarkable pulmonary vasculature. CARDIAC:Normal. No cardiac silhouette abnormality or cardiomegaly. MEDIASTINUM:Atherosclerotic aorta with no visible aneurysm. BONES:Mild scoliosis with mild degenerative disc disease and spondylosis. OTHER:Surgical clips about the right axilla. Degenerative changes of the bilateral shoulders. CONCLUSION:No acute cardiopulmonary disease. No change. Dictated by: Yariel Novak M.D. on 05/07/2018 at 05:04 PM
[2018-05-07] MEDS ORDERED: POTASSIUM CHLORIDE ONE (17:24)
[2018-05-07] MEDS ORDERED: KLOR-CON 10 PO STA (17:25)
== END 2018-05-07 18:00 | disposition home or self-care (01) ==
LOC: ER 14:48
DX: J10.1 Influenza due to other identified influenza virus with other respiratory manifestations (principal); I10 Essential (primary) hypertension; Z79.899 Other long term (current) drug therapy; Z88.0 Allergy status to penicillin; Z88.5 Allergy status to narcotic agent; Z88.8 Allergy status to other drugs, medicaments and biological substances; Z90.49 Acquired absence of other specified parts of digestive tract; Z79.01 Long term (current) use of anticoagulants
CPT/HCPCS: 36415; 71045; 80053; 82550; 83880; 84484; 85025; 85610; 85730; 87804 ×2; 93005; 94640; 96372; 99284; J1100; J2930; J7620

== ENCOUNTER 2018-05-10 07:40 | Emergency (ER) | payer MEDICARE, OTHER ==
[~2018-05-10] VITALS: Ht 162.6 cm; Wt 86.2 kg
[2018-05-10 07:44] VITALS: BP 198/71
--- NOTE | 2018-05-10 07:48 | NUR ---
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
--- NOTE | 2018-05-10 07:55 | PCM.EKG ---
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
--- NOTE | 2018-05-10 07:58 | ER.PDOC ---
General Chief Complaint: General Complaint Stated Complaint: HYPERTENTION TRAVEL OUT OF US: No Time seen by MD: 07:25 Source: patient Exam Limitations: no limitations History of Present Illness Initial Comments Pt here due to hypertension, no other complaints Timing/Duration: unsure Severity: mild Allergies: Coded Allergies: Penicillins (Verified Allergy, Intermediate, RASH, 12/15/12) morphine (Verified Allergy, Mild, 11/06/14) Wdksfyf-Jcq-Jel Reductase Inhibitor (Verified Allergy, Unknown, Hives, ) "FLU-LIKE SYMPTOMS" Home Meds Reported Medications Tramadol Hcl (TRAMADOL HCL) 50 Mg Tablet, 1-2 TAB PO Q6HR for PAIN, #20 TAB 05/02/18 Aspirin (ASPIR 81) 81 Mg Tablet.dr, 1 TAB PO DAILY, #30 TAB 5 Refills 04/28/18 Sertraline Hcl (SERTRALINE HCL) 100 Mg Tablet, 1 TAB PO HS 04/28/18 Pantoprazole Sodium (PROTONIX) 40 Mg Tablet.dr, 1 TAB PO DAILY, #30 TAB 5 Refills 04/28/18 Ramipril (RAMIPRIL) 5 Mg Capsule, 1 CAP PO BID, #30 CAP 5 Refills 04/28/18 Pravastatin Sodium (PRAVASTATIN SODIUM) 10 Mg Tablet, 1 TAB PO HS, #90 TAB 1 Refill 08/09/15 Ramipril 5MG (ALTACE 5MG) 5 Mg Capsule, 1 CAP PO DAILY, #30 CAP 5 Refills 11/06/14 Esomeprazole Magnesium (NEXIUM) 40 Mg Capsule.dr, 1 CAP PO DAILY, #30 CAP 5 Refills 11/06/14 Past Medical History Medical History: cancer, GERD, hypertension, other Surgical History: cancer surgery, cholecystectomy, knee, other Social History Smoking: non-smoker Alcohol Use: none Drug Use: none Review of Systems Constitutional: see HPI Cardiovascular: see HPI All Other Systems: Reviewed and Negative Physical Exam General Appearance: No Apparent Distress, WD/WN EENT: eyes nml inspection, nml ENT inspection Neck: Non-Tender, Full Range of Motion, Supple, Normal Inspection Respiratory: chest non-tender, lungs clear, normal breath sounds, no respiratory distress CVS: reg rate & rhythm, no murmur, no gallop, pulses nml, nml capillary refill Gastrointestinal: Normal Bowel Sounds, No Organomegaly, No Pulsatile Mass, Non Tender Back: Other (recent right knee fracture and left foot fracture) 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, No Motor/Sensory Deficits, Alert, Normal Mood/Affect, Oriented x 3 Skin: Normal Color, Warm/Dry Results/Orders Results/Orders Laboratory Tests Test 05/10/18 07:58 White Blood Count 5.0 10^3/uL (4.5-11.0) Red Blood Count 3.37 10^6/uL (4.00-5.20) Hemoglobin 9.7 g/dL (12.0-15.0) Hematocrit 29.9 % (36.0-46.0) Mean Corpuscular Volume 88.7 fL (78-100) Mean Corpuscular Hemoglobin 28.8 pg (26-34) Mean Corpuscular Hemoglobin Concent 32.4 g/dL (33-37) Red Cell Distribution Width 12.9 % (11.5-14.5) Platelet Count 132 10^3/uL (150-400) Mean Platelet Volume 8.9 fL (7.8-11.0) Neutrophils (%) (Auto) 75.3 % (41.0-85.0) Lymphocytes (%) (Auto) 16.5 % (24.0-44.0) Monocytes (%) (Auto) 6.0 % (5.0-12.0) Neutrophils # (Auto) 3.8 10^3/uL (1.8-7.7) Lymphocytes # (Auto) 0.8 10^3/uL (1.0-4.8) Monocytes # (Auto) 0.3 10^3/uL (0.3-0.8) Absolute Immature Granulocyte (auto 0.01 10^3 u/L (0-2) Eosinophils % 1.8 % (0.0-5.0) Basophils % 0.2 % (0.0-0.2) Basophils # 0.0 10^3/uL (0.0-0.1) Eosinophil Count 0.1 10^3/uL (0.0-0.2) Prothrombin Time 10.4 SEC (9.8-11.9) Prothrombin Time INR (Non-Therap) 1.0 Activated Partial Thromboplast Time 23.9 SEC (24.67-30.72) Sodium Level 144 mmol/L (132-145) Potassium Level 3.1 mmol/L (3.6-5.2) Chloride Level 105.0 mmol/L (96-109) Carbon Dioxide Level 27.2 mmol/L (20.0-32) Anion Gap 14.9 Blood Urea Nitrogen 17 mg/dL (7-18) Creatinine 1.36 mg/dL (0.59-1.40) Estimated GFR () 45.4 (>/=60) BUN/Creatinine Ratio 12.0 Glucose Level 101 mg/dL (70-110) Calcium Level 8.6 mg/dL (8.4-10.5) Total Bilirubin 0.7 mg/dL (0.2-1.0) Aspartate Amino Transf (AST/SGOT) 19 U/L (0-35) Alanine Aminotransferase (ALT/SGPT) 20 U/L (12-78) Alkaline Phosphatase 75 U/L (50-136) Total Creatine Kinase 31 U/L (26-192) Troponin I < 0.02 ng/mL (0.00-0.05) Pro-B-Type Natriuretic Peptide 2628 pg/mL (0-450) Total Protein 6.2 g/dL (6.4-8.2) Albumin 3.0 g/dL (3.4-5.0) Globulin 3.2 Percent Immature Gran (Cell Imm) 0.20 % (0.00-0.50) Departure Time of Disposition: 08:36 Disposition: 01 HOME, SELF-CARE Impression: Primary Impression: Hypertension Additional Impression: Anxiety Condition: Stable Patient Instructions: Anxiety and Panic Attacks, Czep-as-Qaam, Hypertension Referrals: KAYLIN FLORENCE DO (PCP) PRIMARY CARE PROVIDER Duration or Time Spent with Pa: 20 ZOILA SINGH MD May 10, 2018 07:58
[2018-05-10 08:05] LABS: BASOPHIL % 0.2 % (0.0-0.2); EOSINOPHIL # 0.1 10^3/uL (0.0-0.2); EOSINOPHIL % 1.8 % (0.0-5.0); HEMOGLOBIN 9.7 g/dL (12.0-15.0); LYMPHOCYTES # 0.8 10^3/uL (1.0-4.8); LYMPHOCYTES % 16.5 % (24.0-44.0); MEAN CELL HGB 28.8 pg (26-34); MEAN CELL HGB CONCENTRATION 32.4 g/dL (33-37); MEAN CORP VOLUME 88.7 fL (78-100); MEAN PLATELET VOLUME 8.9 fL (7.8-11.0); MONOCYTES # 0.3 10^3/uL (0.3-0.8); NEUTROPHIL # 3.8 10^3/uL (1.8-7.7); NEUTROPHILS % 75.3 % (41.0-85.0); RED CELL DISTRIBUTION WIDTH 12.9 % (11.5-14.5)
[2018-05-10 08:25] LABS: ALANINE AMINOTRANSFERASE(ML) 20 U/L (12-78); ALKALINE PHOSPHATASE 75 U/L (50-136); ASPARTATE AMINO TRANSFERASE 19 U/L (0-35); CALCIUM 8.6 mg/dL (8.4-10.5); CARBON DIOXIDE 27.2 mmol/L (20.0-32); GLUCOSE 101 mg/dL (70-110)
[2018-05-10 08:54] VITALS: BP 186/89
[2018-05-10 08:59] VITALS: BP 186/89
== END 2018-05-10 08:54 | disposition home or self-care (01) ==
LOC: ER 07:40 → EDBD 07:40 → ER 08:54
DX: I10 Essential (primary) hypertension (principal); F41.9 Anxiety disorder, unspecified; R79.1 Abnormal coagulation profile; Z79.82 Long term (current) use of aspirin; Z79.899 Other long term (current) drug therapy; Z88.0 Allergy status to penicillin; Z88.5 Allergy status to narcotic agent; Z88.8 Allergy status to other drugs, medicaments and biological substances; Z90.49 Acquired absence of other specified parts of digestive tract
CPT/HCPCS: 36415; 80053; 82550; 83880; 84484; 85025; 85610; 85730; 93005; 99284

== ENCOUNTER → 2018-05-30 | Outpatient (CLI) | payer MEDICARE, OTHER ==
[2018-05-30 17:42] LABS: HEMOGLOBIN 11.4 g/dL (12.0-15.0); MEAN CELL HGB 29.1 pg (26-34); MEAN CELL HGB CONCENTRATION 33.7 g/dL (33-37); MEAN CORP VOLUME 86.2 fL (78-100); MEAN PLATELET VOLUME 9.9 fL (7.8-11.0); RED CELL DISTRIBUTION WIDTH 13.1 % (11.5-14.5); WHITE BLOOD CELL 4.8 10^3/uL (4.5-11.0)
[2018-05-30 18:24] LABS: CARBON DIOXIDE 30.9 mmol/L (20.0-32)
== END | disposition home or self-care (01) ==
LOC: NPLAB 17:28
PROVIDERS: ATTEND Internal Medicine Rheumatology
DX: M15.0 Primary generalized (osteo)arthritis (principal); K21.9 Gastro-esophageal reflux disease without esophagitis; E78.00 Pure hypercholesterolemia, unspecified; I10 Essential (primary) hypertension; E55.9 Vitamin D deficiency, unspecified; E53.8 Deficiency of other specified B group vitamins; Z87.891 Personal history of nicotine dependence; Z85.3 Personal history of malignant neoplasm of breast; Z79.899 Other long term (current) drug therapy
CPT/HCPCS: 36415; 80053; 82306; 82607; 85027; 85651; 86140

== ENCOUNTER → 2018-08-10 | Outpatient (CLI) | payer MEDICARE, OTHER ==
[2018-08-10 11:03] LABS: BASOPHIL % 0.3 % (0.0-0.2); EOSINOPHIL # 0.1 10^3/uL (0.0-0.2); EOSINOPHIL % 1.5 % (0.0-5.0); HEMOGLOBIN 12.6 g/dL (12.0-15.0); LYMPHOCYTES # 1.7 10^3/uL (1.0-4.8); LYMPHOCYTES % 25.3 % (24.0-44.0); MEAN CELL HGB 28.1 pg (26-34); MEAN CORP VOLUME 82.6 fL (78-100); MEAN PLATELET VOLUME 9.7 fL (7.8-11.0); MONOCYTES # 0.5 10^3/uL (0.3-0.8); NEUTROPHIL # 4.5 10^3/uL (1.8-7.7); NEUTROPHILS % 65.8 % (41.0-85.0); RED CELL DISTRIBUTION WIDTH 14.2 % (11.5-14.5); WHITE BLOOD CELL 6.8 10^3/uL (4.5-11.0)
[2018-08-10 11:47] LABS: CALCIUM 9.4 mg/dL (8.4-10.5); CARBON DIOXIDE 28.9 mmol/L (20.0-32)
== END | disposition home or self-care (01) ==
LOC: LAB 10:26
PROVIDERS: ATTEND Internal Medicine
DX: R53.83 Other fatigue (principal); I10 Essential (primary) hypertension; E78.5 Hyperlipidemia, unspecified; E78.00 Pure hypercholesterolemia, unspecified; K21.9 Gastro-esophageal reflux disease without esophagitis; M81.8 Other osteoporosis without current pathological fracture; Z85.3 Personal history of malignant neoplasm of breast; Z79.899 Other long term (current) drug therapy
CPT/HCPCS: 36415; 80053; 80061; 82607; 82746; 83036; 84439; 84443; 85025; 87077; 87086; 87186

== ENCOUNTER 2018-08-15 13:28 | Emergency (ER) | payer MEDICARE, OTHER ==
[~2018-08-15] VITALS: Ht 162.6 cm; Wt 90.3 kg
[2018-08-15 14:01] VITALS: BP 189/117
--- NOTE | 2018-08-15 14:03 | NUR ---
ARRIVAL PATIENT ARRIVED TO ED6 AMBULATORY WITH FAMILY, C/O OF BODY ACHES AND MOUTH SORES. PATIENT STATES SHE JUST DOESN'T FEEL WELL, CAME TO THE ED FOR EVAL.
--- NOTE | 2018-08-15 14:20 | ER.PDOC ---
General Chief Complaint: General Complaint Stated Complaint: POSSIBLE ALLERGIC REACTION TO MEDS TRAVEL OUT OF US: No Time seen by MD: 14:20 Source: patient Exam Limitations: no limitations History of Present Illness Initial Comments Mouth sores and generalized bodyaches for 1 week Severity: moderate Associated Symptoms: denies symptoms Allergies: Coded Allergies: Penicillins (Verified Allergy, Intermediate, RASH, 12/15/12) morphine (Verified Allergy, Mild, 11/06/14) Xnhrtxw-Qmh-Zqr Reductase Inhibitor (Verified Allergy, Unknown, Hives, 08/09/15) "FLU-LIKE SYMPTOMS" Home Meds Reported Medications Tramadol Hcl (TRAMADOL HCL) 50 Mg Tablet, 1-2 TAB PO Q6HR for PAIN, #20 TAB 05/02/18 Aspirin (ASPIR 81) 81 Mg Tablet.dr, 1 TAB PO DAILY, #30 TAB 5 Refills 04/28/18 Sertraline Hcl (SERTRALINE HCL) 100 Mg Tablet, 1 TAB PO HS 04/28/18 Pantoprazole Sodium (PROTONIX) 40 Mg Tablet.dr, 1 TAB PO DAILY, #30 TAB 5 Refills 04/28/18 Ramipril (RAMIPRIL) 5 Mg Capsule, 1 CAP PO BID, #30 CAP 5 Refills 04/28/18 Pravastatin Sodium (PRAVASTATIN SODIUM) 10 Mg Tablet, 1 TAB PO HS, #90 TAB 1 Refill 08/09/15 Ramipril 5MG (ALTACE 5MG) 5 Mg Capsule, 1 CAP PO DAILY, #30 CAP 5 Refills 11/06/14 Esomeprazole Magnesium (NEXIUM) 40 Mg Capsule.dr, 1 CAP PO DAILY, #30 CAP 5 Refills 11/06/14 Past Medical History Medical History: cancer, GERD, hypertension, other Surgical History: cancer surgery, cholecystectomy Social History Smoking: non-smoker Alcohol Use: none Drug Use: none Review of Systems Constitutional: no symptoms reported EENTM: no symptoms reported Respiratory: no symptoms reported Cardiovascular: no symptoms reported Gastrointestinal: no symptoms reported All Other Systems: Reviewed and Negative Physical Exam General Appearance: No Apparent Distress, WD/WN EENT: eyes nml inspection, other (cold sores) Neck: Non-Tender, Full Range of Motion, Supple, Normal Inspection Respiratory: chest non-tender, lungs clear, normal breath sounds, no respiratory distress CVS: reg rate & rhythm, no murmur, no gallop, pulses nml Gastrointestinal: Normal Bowel Sounds, No Organomegaly, No Pulsatile Mass, Non Tender Back: Normal Inspection Extremities: Normal Range of Motion 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 (08/15/18 14:11) Xr Chest 1v (08/15/18 14:11) Ekg-Routine (08/15/18 14:11) Clonidine Hcl (Catapres) (08/15/18 15:16) Clonidine Hcl (Catapres) (08/15/18 15:16) Vital Signs Date Time Temp Pulse Resp B/P (MAP) Pulse Ox O2 Delivery O2 Flow Rate FiO2 08/15/18 15:21 78 186/89 08/15/18 14:01 98.2 89 18 189/117 (141) 94 Room Air 98.2 08/15/18 13:58 98.2 89 18 94 Room Air 98.2 08/15/18 13:57 98.2 87 18 98.2 Administered Medications Medications (Trade) Dose Ordered Sig/Bee Route PRN Reason Start Time Stop Time Status Last Admin Dose Admin Clonidine (Catapres) 0.1 mg STAT STAT PO 08/15/18 15:16 08/15/18 15:17 DC 08/15/18 15:21 0.1 MG Laboratory Tests Test 08/15/18 14:17 White Blood Count 5.8 10^3/uL (4.5-11.0) Red Blood Count 4.10 10^6/uL (4.00-5.20) Hemoglobin 11.6 g/dL (12.0-15.0) L Hematocrit 33.9 % (36.0-46.0) L Mean Corpuscular Volume 82.7 fL (78-100) Mean Corpuscular Hemoglobin 28.3 pg (26-34) Mean Corpuscular Hemoglobin Concent 34.2 g/dL (33-37) Red Cell Distribution Width 14.0 % (11.5-14.5) Platelet Count 143 10^3/uL (150-400) L Mean Platelet Volume 9.7 fL (7.8-11.0) Neutrophils (%) (Auto) 70.3 % (41.0-85.0) Lymphocytes (%) (Auto) 20.8 % (24.0-44.0) L Monocytes (%) (Auto) 7.6 % (5.0-12.0) Neutrophils # (Auto) 4.1 10^3/uL (1.8-7.7) Lymphocytes # (Auto) 1.2 10^3/uL (1.0-4.8) Monocytes # (Auto) 0.4 10^3/uL (0.3-0.8) Absolute Immature Granulocyte (auto 0.02 10^3 u/L (0-2) Immature Granulocytes % 0.30 % (0.00-0.50) Eosinophils % 0.7 % (0.0-5.0) Basophils % 0.3 % (0.0-0.2) H Basophils # 0.0 10^3/uL (0.0-0.1) Eosinophil Count 0.0 10^3/uL (0.0-0.2) Prothrombin Time 10.4 SEC (9.8-11.9) Prothrombin Time INR (Non-Therap) 1.0 PTT 22.7 SEC (24.67-30.72) Sodium Level 143 mmol/L (132-145) Potassium Level 4.0 mmol/L (3.6-5.2) Chloride Level 104.0 mmol/L (96-109) Carbon Dioxide Level 28.2 mmol/L (20.0-32) Anion Gap 14.8 Blood Urea Nitrogen 14 mg/dL (7-18) Creatinine 1.01 mg/dL (0.59-1.40) Estimated GFR () 64.0 (>/=60) BUN/Creatinine Ratio 13.0 Glucose Level 94 mg/dL (70-110) Calcium Level 9.4 mg/dL (8.4-10.5) Total Bilirubin 0.5 mg/dL (0.2-1.0) Aspartate Amino Transferase (AST) 22 U/L (0-35) Alanine Aminotransferase (ALT) 18 U/L (12-78) Alkaline Phosphatase 97 U/L (50-136) Total Creatine Kinase 35 U/L (26-192) Troponin I < 0.02 ng/mL (0.00-0.05) Total Protein 6.9 g/dL (6.4-8.2) Albumin 3.8 g/dL (3.4-5.0) Globulin 3.1 EKG/XRAY/CT/US EKG: NSR XRAY: chest (Nothing acute) Course Sepsis Screening Results: Posi: NEGATIVE Sepsis Qualifier/Stage: NO DEFINITE RISK Duration or Total Time Spent w: 20 Vitals & review Data Vital Sign - Last 24 Hours 08/15/18 08/15/18 08/15/18 08/15/18 13:57 13:58 14:01 15:21 Temp 98.2 98.2 98.2 98.2 98.2 98.2 Pulse 87 89 89 78 Resp 18 18 18 B/P (MAP) 189/117 (141) 186/89 Pulse Ox 94 94 O2 Delivery Room Air Room Air Laboratory Tests Test 08/15/18 14:17 White Blood Count 5.8 10^3/uL Red Blood Count 4.10 10^6/uL Hemoglobin 11.6 g/dL Hematocrit 33.9 % Mean Corpuscular Volume 82.7 fL Mean Corpuscular Hemoglobin 28.3 pg Mean Corpuscular Hemoglobin Concent 34.2 g/dL Red Cell Distribution Width 14.0 % Platelet Count 143 10^3/uL Mean Platelet Volume 9.7 fL Neutrophils (%) (Auto) 70.3 % Lymphocytes (%) (Auto) 20.8 % Monocytes (%) (Auto) 7.6 % Neutrophils # (Auto) 4.1 10^3/uL Lymphocytes # (Auto) 1.2 10^3/uL Monocytes # (Auto) 0.4 10^3/uL Absolute Immature Granulocyte (auto 0.02 10^3 u/L Immature Granulocytes % 0.30 % Eosinophils % 0.7 % Basophils % 0.3 % Basophils # 0.0 10^3/uL Eosinophil Count 0.0 10^3/uL Prothrombin Time 10.4 SEC Prothrombin Time INR (Non-Therap) 1.0 Activated Partial Thromboplast Time 22.7 SEC Sodium Level 143 mmol/L Potassium Level 4.0 mmol/L Chloride Level 104.0 mmol/L Carbon Dioxide Level 28.2 mmol/L Anion Gap 14.8 Blood Urea Nitrogen 14 mg/dL Creatinine 1.01 mg/dL Estimated GFR () 64.0 BUN/Creatinine Ratio 13.0 Glucose Level 94 mg/dL Calcium Level 9.4 mg/dL Total Bilirubin 0.5 mg/dL Aspartate Amino Transf (AST/SGOT) 22 U/L Alanine Aminotransferase (ALT/SGPT) 18 U/L Alkaline Phosphatase 97 U/L Total Creatine Kinase 35 U/L Troponin I < 0.02 ng/mL Total Protein 6.9 g/dL Albumin 3.8 g/dL Globulin 3.1 Sepsis Infection Criteria Pres: None LEVEL 1 SEPSIS INFECTION CRITE: ABX Therapy, Recent Invasive Procedure LEVEL 2-SIRS (LIST ALL THAT AP: None/Not assessed Cardiovascular Evidence: Not Assessed or None Hematologic Evidence: None/Not assessed Hepatic Evidence: None/Not assessed Metabolic Evidence: None/Not assessed Neurological Evidence: None/Not assessed Respiratory Evidence: None/Not assessed Renal Evidence: None/Not assessed O2 Sat by Pulse Oximetry: 94 Departure Time of Disposition: 15:50 Disposition: 01 HOME, SELF-CARE Impression: Primary Impression: Uncontrolled hypertension Additional Impression: Cold sore Condition: Stable Referrals: CRISTINO DAMON MD (PCP) PRIMARY CARE PROVIDER Additional Instructions: Continue home medications Keep a blood pressure diary Salt with warm water gaggles 3 times a day F/U with PCP in 2-3 days Duration or Time Spent with Pa: 60 mins Problem Qualifiers CASSANDRA BEACH MD August 15, 2018 14:20
[2018-08-15 14:22] LABS: BASOPHIL % 0.3 % (0.0-0.2); EOSINOPHIL % 0.7 % (0.0-5.0); HEMOGLOBIN 11.6 g/dL (12.0-15.0); LYMPHOCYTES # 1.2 10^3/uL (1.0-4.8); LYMPHOCYTES % 20.8 % (24.0-44.0); MEAN CELL HGB 28.3 pg (26-34); MEAN CELL HGB CONCENTRATION 34.2 g/dL (33-37); MEAN CORP VOLUME 82.7 fL (78-100); MEAN PLATELET VOLUME 9.7 fL (7.8-11.0); MONOCYTES # 0.4 10^3/uL (0.3-0.8); MONOCYTES % 7.6 % (5.0-12.0); NEUTROPHIL # 4.1 10^3/uL (1.8-7.7); NEUTROPHILS % 70.3 % (41.0-85.0); WHITE BLOOD CELL 5.8 10^3/uL (4.5-11.0)
--- NOTE | 2018-08-15 14:35 | PCM.EKG ---
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
[2018-08-15 14:42] LABS: ALANINE AMINOTRANSFERASE(ML) 18 U/L (12-78); ALKALINE PHOSPHATASE 97 U/L (50-136); ASPARTATE AMINO TRANSFERASE 22 U/L (0-35); CALCIUM 9.4 mg/dL (8.4-10.5); CARBON DIOXIDE 28.2 mmol/L (20.0-32); GLUCOSE 94 mg/dL (70-110)
[2018-08-15] MEDS ORDERED: CATAPRES ONE (15:16)
[2018-08-15] MEDS ORDERED: CATAPRES PO STA (15:16)
--- NOTE | 2018-08-15 15:34 | DIREP ---
PROCEDURE:CHEST 1 VIEW COMPARISON:[facility], CR, XRAY CHEST SINGLE VW, 05/07/2018, 03:42 PM. INDICATIONS:Weakness and elevated blood pressure FINDINGS: LUNGS/PLEURA:No significant pulmonary parenchymal abnormalities. No effusions. VASCULATURE:Normal. Unremarkable pulmonary vasculature. CARDIAC:Normal. No cardiac silhouette abnormality or cardiomegaly. MEDIASTINUM:Calcification in the aortic arch. BONES:Normal. No fracture or visible bony lesion. OTHER:Negative. CONCLUSION:No acute cardiopulmonary abnormalities. No change from previous study. Dictated by: Armando Hardin M.D. on 08/15/2018 at 03:32 PM
[2018-08-15 16:30] VITALS: BP 164/72
[2018-08-15 16:31] VITALS: BP 186/89
== END 2018-08-15 16:27 | disposition home or self-care (01) ==
LOC: ER 13:28
DX: B00.1 Herpesviral vesicular dermatitis (principal); I10 Essential (primary) hypertension; Z79.01 Long term (current) use of anticoagulants; Z79.899 Other long term (current) drug therapy
CPT/HCPCS: 36415; 71045; 80053; 82550; 84484; 85025; 85610; 85730; 93005; 99285

== ENCOUNTER → 2018-09-28 | Outpatient (CLI) | payer MEDICARE, OTHER ==
--- NOTE | 2018-09-28 16:33 | DIREP ---
PROCEDURE:MRI SPINE LUMBAR W/O COMPARISON:[facility], CR, XRAY SPINE LUMBAR BENDING 4VWS, 01/17/2018, 02:31 PM. INDICATIONS:LOWER BACK PAIN TECHNIQUE:A comprehensive examination was performed utilizing a variety of imaging planes and imaging parameters to optimize visualization of suspected pathology. Images were performed without intravenous gadolinium contrast. FINDINGS: ALIGNMENT:Normal. VERTEBRA:Moderate anterior height loss at T11 without significant marrow edema suggesting older injury. CORD/CAUDA EQUINA:Normal size, contour, and signal intensity. PARASPINAL AREA:Normal with no visible mass. OTHER:None. LUMBAR DISC LEVELS T12-L1:No significant disc/facet abnormality, spinal stenosis, or foraminal stenosis. L1-L2:No significant disc/facet abnormality, spinal stenosis, or foraminal stenosis. L2-L3:Small left lateral protrusion and thickening of the ligamentum flavum. Minimal left foraminal stenosis. L3-L4:Mild facet arthropathy. Thickened ligamentum flavum. Small dorsal bulge. Mild foraminal stenosis worse on the left. Mild canal stenosis. L4-L5:Moderate facet arthropathy. Thickened ligamentum flavum. Left-sided endplate degenerative changes. Minimal dorsal bulge. Minimal foraminal and spinal stenosis. L5-S1:Mild facet arthropathy. Small dorsal bulge. Mild foraminal stenosis without spinal stenosis. CONCLUSION: 1. Moderate T11 anterior wedge fracture with minimal residual edema suggesting older injury. 2. Mild degenerative changes as detailed above. Dictated by: Shaw Jones M.D. on 09/28/2018 at 04:27 PM
== END | disposition home or self-care (01) ==
LOC: RAD 14:45
PROVIDERS: ATTEND Orthopaedic Surgery
DX: S22.080A Wedge compression fracture of T11-T12 vertebra, initial encounter for closed fracture (principal); M47.816 Spondylosis without myelopathy or radiculopathy, lumbar region; X58.XXXA Exposure to other specified factors, initial encounter; Y93.89 Activity, other specified; Y92.89 Other specified places as the place of occurrence of the external cause; Y99.8 Other external cause status
CPT/HCPCS: 72148

== ENCOUNTER 2018-12-30 22:51 | Emergency (ER) | payer MEDICARE, OTHER ==
[~2018-12-30] VITALS: Ht 157.5 cm; Wt 86.2 kg
[2018-12-30 23:03] VITALS: BP 207/93
[2018-12-30] MEDS ORDERED: CATAPRES ONE (23:05)
[2018-12-30] MEDS ORDERED: CATAPRES PO STA (23:10)
--- NOTE | 2018-12-30 23:57 | DIREP ---
PROCEDURE:CHEST 1 VIEW COMPARISON:[facility], CR, XRAY CHEST SINGLE VW, 08/15/2018, 02:41 PM. INDICATIONS:dyspnea FINDINGS: LUNGS/PLEURA:No significant pulmonary parenchymal abnormalities. No effusions. Lungs are well-expanded and clear. No pneumonia, heart failure or effusions are seen. Surgical clips identified in the right perihilar region on this single chest x-ray. Right axillary clips also noted. VASCULATURE:Normal. Unremarkable pulmonary vasculature. CARDIAC:Normal. No cardiac silhouette abnormality or cardiomegaly. MEDIASTINUM:Normal. No visible mass or adenopathy. BONES:Normal. No fracture or visible bony lesion. OTHER:Negative. CONCLUSION:No active disease. No pneumonia, heart failure or effusions are seen. No pulmonary nodules are seen. Right axillary surgical clips noted consistent with a right axillary dissection. Dictated by: Abraham López MD on 12/30/2018 at 11:55 PM
[2018-12-31] VITALS: BP 220/100
[2018-12-31 00:01] LABS: BILIRUBIN,URINE NEGATIVE (NEGATIVE); UROBILINOGEN,URINE NORMAL (NEGATIVE)
[2018-12-31 00:11] LABS: BASOPHIL % 0.2 % (0.0-0.2); EOSINOPHIL # 0.1 10^3/uL (0.0-0.2); EOSINOPHIL % 1.3 % (0.0-5.0); HEMOGLOBIN 11.7 g/dL (12.0-15.0); LYMPHOCYTES # 1.5 10^3/uL (1.0-4.8); LYMPHOCYTES % 31.9 % (24.0-44.0); MEAN CELL HGB 28.6 pg (26-34); MEAN CELL HGB CONCENTRATION 34.1 g/dL (33-37); MEAN CORP VOLUME 83.9 fL (78-100); MONOCYTES # 0.3 10^3/uL (0.3-0.8); MONOCYTES % 6.3 % (5.0-12.0); NEUTROPHIL # 2.9 10^3/uL (1.8-7.7); NEUTROPHILS % 60.1 % (41.0-85.0); RED CELL DISTRIBUTION WIDTH 13.9 % (11.5-14.5); WHITE BLOOD CELL 4.8 10^3/uL (4.5-11.0)
[2018-12-31 00:14] LABS: APPEARANCE,URINE CLEAR (CLEAR); UA COLOR STRAW (YELLOW)
[2018-12-31] MEDS ORDERED: APRESOLINE IV STA (00:31)
--- NOTE | 2018-12-31 00:32 | PCM.EKG ---
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
[2018-12-31 00:33] LABS: ALANINE AMINOTRANSFERASE(ML) 18 U/L (12-78); ALKALINE PHOSPHATASE 110 U/L (50-136); ASPARTATE AMINO TRANSFERASE 20 U/L (0-35); CALCIUM 9.1 mg/dL (8.4-10.5); CARBON DIOXIDE 28.4 mmol/L (20.0-32); GLUCOSE 98 mg/dL (70-110)
[2018-12-31] MEDS ORDERED: APRESOLINE ONE (00:34)
[2018-12-31 00:45] VITALS: BP 174/85
--- NOTE | 2018-12-31 00:57 | ER.PDOC ---
General Chief Complaint: General Complaint Stated Complaint: ELEVATED BP Time seen by MD: 23:45 Source: patient, family Exam Limitations: no limitations History of Present Illness Occurred: just prior to arrival Severity: mild Associated Symptoms: vague, weakness, light headness Usually: walks w/o assistance Worsened By: nothing Prior symptoms/Treatment: Similar symptoms previous Allergies: Coded Allergies: Penicillins (Verified Allergy, Intermediate, RASH, 12/15/12) morphine (Verified Allergy, Mild, 11/06/14) Jynirxb-Vzy-Gxm Reductase Inhibitor (Verified Allergy, Unknown, Hives, 08/09/15) "FLU-LIKE SYMPTOMS" Home Meds Reported Medications Tramadol Hcl (TRAMADOL HCL) 50 Mg Tablet, 1-2 TAB PO Q6HR for PAIN, #20 TAB 05/02/18 Aspirin (ASPIR 81) 81 Mg Tablet.dr, 1 TAB PO DAILY, #30 TAB 5 Refills 04/28/18 Sertraline Hcl (SERTRALINE HCL) 100 Mg Tablet, 1 TAB PO HS 04/28/18 Pantoprazole Sodium (PROTONIX) 40 Mg Tablet.dr, 1 TAB PO DAILY, #30 TAB 5 Refills 04/28/18 Ramipril (RAMIPRIL) 5 Mg Capsule, 1 CAP PO BID, #30 CAP 5 Refills 04/28/18 Pravastatin Sodium (PRAVASTATIN SODIUM) 10 Mg Tablet, 1 TAB PO HS, #90 TAB 1 Refill 08/09/15 Ramipril 5MG (ALTACE 5MG) 5 Mg Capsule, 1 CAP PO DAILY, #30 CAP 5 Refills 11/06/14 Esomeprazole Magnesium (NEXIUM) 40 Mg Capsule.dr, 1 CAP PO DAILY, #30 CAP 5 Refills 11/06/14 Past Medical History Medical History: GERD, hypertension, other (Sjogren's Disease, Padget's disease, Dementia) Surgical History: cardiac cath, cholecystectomy, knee, mastectomy LMP (females 10-50): postmenopause Family History Significant Family History: no pertinent family hx Social History Smoking: non-smoker Alcohol Use: none Drug Use: none Reviewed Nursing Reviewed: Vital Signs, Abn. Noted, Nursing Assessment Review of Systems Constitutional: no symptoms reported Eyes: no symptoms reported Ears: dizziness Nose: no symptoms reported Mouth: no symptoms reported Throat: no symptoms reported Respiratory: shortness of breath Cardiovascular: lightheadedness Gastrointestinal: no symptoms reported Genitourinary: no symptoms reported Musculoskeletal: no symptoms reported, back pain, muscle pain Skin: no symptoms reported Psychiatric/Neurological: no symptoms reported All Other Systems: Reviewed and Negative Physical Exam General Appearance: alert, no distress EENT: nml eye inspection, PERRL Neck: supple Respiratory: no resp distress, breath sounds nml CVS: reg rate & rhythm, heart sounds.nml Abdomen: non-tender, no distention Skin: color nml, no rash, warm/dry Extremities: non-tender, nml ROM, no pedal edema Neuro/Psych: nml orientation, nml speech/cognition, nml mood/affect Cranial Nerves: nml as tested, no evidence of acute CVA Sensorimotor: nml motor, nml sensation Results/Orders Results/Orders Orders - MANJULA RODRIGUEZ MD Clonidine Hcl (Catapres) (12/30/18 23:10) Cbc With Auto Diff (12/30/18 23:38) Comprehensive Metabolic Panel (12/30/18 23:38) Urinalysis (12/30/18 23:38) Troponin I (12/30/18 23:38) Xr Chest 1v (12/30/18 23:38) Ekg-Routine (12/31/18 00:15) Hydralazine Hcl (Apresoline) (12/31/18 00:31) Hydralazine Hcl (Apresoline) (12/31/18 00:34) Vital Signs Date Time Temp Pulse Resp B/P (MAP) Pulse Ox O2 Delivery O2 Flow Rate FiO2 12/31/18 00:45 97.8 66 16 174/85 (114) 94 Room Air 12/31/18 00:38 64 187/82 12/31/18 00:00 97.8 70 16 220/100 (140) 94 Room Air 12/30/18 23:06 73 207/93 12/30/18 23:03 97.8 73 18 12/30/18 23:03 97.8 73 18 207/93 (131) 97 Room Air 12/30/18 23:03 97.8 73 18 97 Room Air Administered Medications Medications (Trade) Dose Ordered Sig/Bee Route PRN Reason Start Time Stop Time Status Last Admin Dose Admin Clonidine (Catapres) 0.2 mg STAT STAT PO 12/30/18 23:10 12/30/18 23:11 DC 12/30/18 23:06 0.2 MG Hydralazine HCl (Apresoline) 10 mg STAT STAT IV 12/31/18 00:31 12/31/18 00:32 DC 12/31/18 00:38 10 MG Laboratory Tests Test 12/30/18 23:40 12/30/18 23:55 Urine Collection Type UNKNOWN Urine Color STRAW (YELLOW) Urine Appearance CLEAR (CLEAR) Urine Bilirubin NEGATIVE MG/DL (NEGATIVE) Urine Ketones NEGATIVE (NEGATIVE) Urine Specific [place] 1.015 (1.005-1.035) Urine pH 6 (5.0-6.0) Urine Protein NEGATIVE (NEGATIVE) Urine Urobilinogen NORMAL (NEGATIVE) Urine Nitrate NEGATIVE (NEGATIVE) Urine Leukocyte Esterase NEGATIVE (NEGATIVE) Urine Blood NEGATIVE (NEGATIVE) Urine Glucose NORMAL (NEGATIVE) White Blood Count 4.8 10^3/uL (4.5-11.0) Red Blood Count 4.09 10^6/uL (4.00-5.20) Hemoglobin 11.7 g/dL (12.0-15.0) L Hematocrit 34.3 % (36.0-46.0) L Mean Corpuscular Volume 83.9 fL (78-100) Mean Corpuscular Hemoglobin 28.6 pg (26-34) Mean Corpuscular Hemoglobin Concent 34.1 g/dL (33-37) Red Cell Distribution Width 13.9 % (11.5-14.5) Platelet Count 134 10^3/uL (150-400) L Mean Platelet Volume 10.0 fL (7.8-11.0) Neutrophils (%) (Auto) 60.1 % (41.0-85.0) Lymphocytes (%) (Auto) 31.9 % (24.0-44.0) Monocytes (%) (Auto) 6.3 % (5.0-12.0) Neutrophils # (Auto) 2.9 10^3/uL (1.8-7.7) Lymphocytes # (Auto) 1.5 10^3/uL (1.0-4.8) Monocytes # (Auto) 0.3 10^3/uL (0.3-0.8) Absolute Immature Granulocyte (auto 0.01 10^3 u/L (0-2) Immature Granulocytes % 0.20 % (0.00-0.50) Eosinophils % 1.3 % (0.0-5.0) Basophils % 0.2 % (0.0-0.2) Basophils # 0.0 10^3/uL (0.0-0.1) Eosinophil Count 0.1 10^3/uL (0.0-0.2) Sodium Level 145 mmol/L (132-145) Potassium Level 3.7 mmol/L (3.6-5.2) Chloride Level 107.0 mmol/L (96-109) Carbon Dioxide Level 28.4 mmol/L (20.0-32) Anion Gap 13.3 Blood Urea Nitrogen 14 mg/dL (7-18) Creatinine 1.33 mg/dL (0.59-1.40) Estimated GFR () 46.4 (>/=60) BUN/Creatinine Ratio 10.0 Glucose Level 98 mg/dL (70-110) Calcium Level 9.1 mg/dL (8.4-10.5) Total Bilirubin 0.4 mg/dL (0.2-1.0) Aspartate Amino Transferase (AST) 20 U/L (0-35) Alanine Aminotransferase (ALT) 18 U/L (12-78) Alkaline Phosphatase 110 U/L (50-136) Troponin I < 0.02 ng/mL (0.00-0.05) Total Protein 7.1 g/dL (6.4-8.2) Albumin 3.9 g/dL (3.4-5.0) Globulin 3.2 Course Sepsis Screening Results: Posi: NEGATIVE Sepsis Qualifier/Stage: NO DEFINITE RISK Duration or Total Time Spent w: 60 mins Vitals & review Data Vital Sign - Last 24 Hours 12/30/18 12/30/18 12/30/18 12/30/18 23:03 23:03 23:03 23:06 Temp 97.8 97.8 97.8 Pulse 73 73 73 73 Resp 18 18 18 B/P (MAP) 207/93 (131) 207/93 Pulse Ox 97 97 O2 Delivery Room Air Room Air 12/31/18 12/31/18 12/31/18 00:00 00:38 00:45 Temp 97.8 97.8 Pulse 70 64 66 Resp 16 16 B/P (MAP) 220/100 (140) 187/82 174/85 (114) Pulse Ox 94 94 O2 Delivery Room Air Room Air Laboratory Tests Test 12/30/18 23:40 12/30/18 23:55 Urine Collection Type UNKNOWN Urine Color STRAW Urine Appearance CLEAR Urine Bilirubin NEGATIVE MG/DL Urine Ketones NEGATIVE Urine Specific [place] 1.015 Urine pH 6 Urine Protein NEGATIVE Urine Urobilinogen NORMAL Urine Nitrate NEGATIVE Urine Leukocyte Esterase NEGATIVE Urine Blood NEGATIVE Urine Glucose NORMAL White Blood Count 4.8 10^3/uL Red Blood Count 4.09 10^6/uL Hemoglobin 11.7 g/dL Hematocrit 34.3 % Mean Corpuscular Volume 83.9 fL Mean Corpuscular Hemoglobin 28.6 pg Mean Corpuscular Hemoglobin Concent 34.1 g/dL Red Cell Distribution Width 13.9 % Platelet Count 134 10^3/uL Mean Platelet Volume 10.0 fL Neutrophils (%) (Auto) 60.1 % Lymphocytes (%) (Auto) 31.9 % Monocytes (%) (Auto) 6.3 % Neutrophils # (Auto) 2.9 10^3/uL Lymphocytes # (Auto) 1.5 10^3/uL Monocytes # (Auto) 0.3 10^3/uL Absolute Immature Granulocyte (auto 0.01 10^3 u/L Immature Granulocytes % 0.20 % Eosinophils % 1.3 % Basophils % 0.2 % Basophils # 0.0 10^3/uL Eosinophil Count 0.1 10^3/uL Sodium Level 145 mmol/L Potassium Level 3.7 mmol/L Chloride Level 107.0 mmol/L Carbon Dioxide Level 28.4 mmol/L Anion Gap 13.3 Blood Urea Nitrogen 14 mg/dL Creatinine 1.33 mg/dL Estimated GFR () 46.4 BUN/Creatinine Ratio 10.0 Glucose Level 98 mg/dL Calcium Level 9.1 mg/dL Total Bilirubin 0.4 mg/dL Aspartate Amino Transf (AST/SGOT) 20 U/L Alanine Aminotransferase (ALT/SGPT) 18 U/L Alkaline Phosphatase 110 U/L Troponin I < 0.02 ng/mL Total Protein 7.1 g/dL Albumin 3.9 g/dL Globulin 3.2 Sepsis Infection Criteria Pres: None LEVEL 1 SEPSIS INFECTION CRITE: ABX Therapy, Recent Invasive Procedure LEVEL 2-SIRS (LIST ALL THAT AP: None/Not assessed Cardiovascular Evidence: Not Assessed or None Hematologic Evidence: None/Not assessed Hepatic Evidence: None/Not assessed Metabolic Evidence: None/Not assessed Neurological Evidence: None/Not assessed Respiratory Evidence: None/Not assessed Renal Evidence: None/Not assessed O2 Sat by Pulse Oximetry: 94 Departure Time of Disposition: 00:53 Disposition: 01 HOME, SELF-CARE Impression: Primary Impression: Hypertension Additional Impressions: Dyspnea Dizziness Condition: Stable Referrals: CRISTINO DAMON MD (PCP) PRIMARY CARE PROVIDER Additional Instructions: Patient having mild dizziness, shortness of breath today. Likely 2/2 elevated BP. Patient given medications to reduce BP and now she is asymptomatic. Labs, imaging, EKG reviewed. Patient counseled to f/u with PCP within 1-2 days. Check BP 2-3x daily and return to care for worsening/concerning symptoms. Low salt diet (DASH). Duration or Time Spent with Pa: 45 minutes Problem Qualifiers Primary Impression: Hypertension Hypertension type: essential hypertension Qualified Codes: I10 - Essential (primary) hypertension Additional Impressions: Dyspnea Dyspnea type: unspecified Qualified Codes: R06.00 - Dyspnea, unspecified MANJULA RODRIGUEZ MD Dec 31, 2018 00:57
--- NOTE | 2018-12-31 00:58 | NUR ---
IV DC'D TIP INTACT, NO BLEEDING
== END 2018-12-31 01:02 | disposition home or self-care (01) ==
LOC: ER 22:51
DX: I10 Essential (primary) hypertension (principal); R06.00 Dyspnea, unspecified; R42 Dizziness and giddiness; K21.9 Gastro-esophageal reflux disease without esophagitis; Z88.0 Allergy status to penicillin; Z88.5 Allergy status to narcotic agent; Z88.8 Allergy status to other drugs, medicaments and biological substances; Z79.899 Other long term (current) drug therapy
CPT/HCPCS: 36415; 71045; 80053; 81002; 84484; 85025; 93005; 96374; 99285; J0360

== ENCOUNTER 2019-01-17 13:59 | Inpatient (IN) | payer MEDICARE, OTHER ==
[~2019-01-17] VITALS: Ht 162.6 cm; Wt 84.8 kg
[2019-01-17 14:12] VITALS: BP 187/85
[2019-01-17 14:13] VITALS: BP 187/85
--- NOTE | 2019-01-17 14:14 | NUR ---
ARRIVAL PATIENT ARRIVED TO ED3 VIA W/C WITH FAMILY, C/O OF CHEST PAIN THAT STARTED AFTER EATING TODAY, PATIENT DENIES ANY HISTORY OF CARDIAC PROBLEMS, CAME TO THE ED FOR EVAL.
[2019-01-17 14:24] LABS: BASOPHIL % 0.2 % (0.0-0.2); EOSINOPHIL # 0.1 10^3/uL (0.0-0.2); LYMPHOCYTES # 1.2 10^3/uL (1.0-4.8); LYMPHOCYTES % 29.3 % (24.0-44.0); MEAN CORP HGB 27.4 pg (26-34); MONOCYTES # 0.3 10^3/uL (0.3-0.8); MONOCYTES % 6.6 % (5.0-12.0); NEUTROPHIL # 2.5 10^3/uL (1.8-7.7); NEUTROPHILS % 61.7 % (41.0-85.0); RED CELL DISTRIBUTION WIDTH 13.6 % (11.5-14.5)
--- NOTE | 2019-01-17 14:25 | PCM.EKG ---
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
[2019-01-17] MEDS ORDERED: ASPIRIN ONE (14:37)
[2019-01-17] MEDS ORDERED: ASPIRIN PO STA (14:38)
--- NOTE | 2019-01-17 14:39 | DIREP ---
PROCEDURE:CHEST 1 VIEW COMPARISON:[facility], CR, XRAY CHEST SINGLE VW, 12/30/2018, 11:36 PM. INDICATIONS:Chest pain FINDINGS: LUNGS/PLEURA:No significant pulmonary parenchymal abnormalities. No effusions. VASCULATURE:Normal. Unremarkable pulmonary vasculature. CARDIAC:Normal. No cardiac silhouette abnormality or cardiomegaly. MEDIASTINUM:Normal. No visible mass or adenopathy. BONES:Normal. No fracture or visible bony lesion. OTHER:Surgical clips are again seen in the right axillary region. CONCLUSION:No acute cardiopulmonary disease is seen or significant interval change from prior study. Dictated by: Kwadwo Nuñez M.D. on 01/17/2019 at 02:37 PM
[2019-01-17] MEDS: NITROSTAT SL PRN ×2 (14:40→14:41)
--- NOTE | 2019-01-17 14:41 | NUR ---
NITRO SL BP 164/82, HR 71. SPRAY X1 AT THIS TIME. PT STATED "PAIN NOT THAT BAD. JUST HURTS OVER THE BONE (POINTS TO RIGHT SIDE OF STERNUM)". SPOUSE AT BEDSIDE.
--- NOTE | 2019-01-17 14:46 | NUR ---
F/U BP 157/81, 75HR. PATIENT STATED PAIN BETTER. C/O GALVAN, PATIENT AND SPOUSE INSTRUCTED ON GALVAN IS AN EXPECTED SIDE EFFECT OF NITRO ALONG WITH LOWER BP. PATIENT DENIES NEEDING ANY MORE NITRO AT THIS TIME.
--- NOTE | 2019-01-17 14:48 | NUR ---
Jens davila in [facility] - 01/17/19 at 1514 by EBONY PITO CEDILLO MBA SPOKE WITH PITO SALEH, PATIENT ACCEPTED BY [facility]S
[2019-01-17 14:52] LABS: ALANINE AMINOTRANSFERASE(ML) 20 U/L (12-78); ALKALINE PHOSPHATASE 87 U/L (50-136); ASPARTATE AMINO TRANSFERASE 23 U/L (0-35); CARBON DIOXIDE 26.9 mmol/L (20.0-32); GLUCOSE 101 mg/dL (70-110)
--- NOTE | 2019-01-17 15:01 | NUR ---
Jens davila in [facility] - 01/17/19 at 1515 by EBONY EMS EMS TO ED SANDRINE HERNANDEZ.
--- NOTE | 2019-01-17 15:01 | NUR ---
Jens davila in [facility] - 01/17/19 at 1515 by EBONY DISPATCH DISPATCH NOTIFIED OF DAVID
[2019-01-17 15:08] VITALS: BP 150/77
--- NOTE | 2019-01-17 15:16 | NUR ---
UPDATE DOCTOR SPOKE WITH PATIENT, SHE AGREED TO STAY HERE FOR OBSERVATION AND SEE DOCTOR WESLEY, THEN AFTER A FEW MINUTES DECLINED ADMISSION AND WANTS TO SIGN OUT AMA
--- NOTE | 2019-01-17 15:21 | NUR ---
DECISION AFTER DOCTOR YONG SPOKE WITH PATIENT SHE AGREED TO STAY AND SEE DORCAS OLSON.
--- NOTE | 2019-01-17 15:23 | NUR ---
WESLEY DOCTOR YONG IS ON THE PHONE WITH DOCTOR OLSON AT THIS TIME.
--- NOTE | 2019-01-17 15:26 | NUR ---
JENNIFER CEDILLO MBA ON THE PHONE WITH DOCTOR RODRIGUEZ AT THIS TIME.
--- NOTE | 2019-01-17 15:29 | ER.PDOC ---
General Chief Complaint: Chest Pain-Cardiac Nature Stated Complaint: CHEST PAINS Time seen by MD: 14:50 Source: patient Exam Limitations: no limitations History of Present Illness Initial Comments Chest pain Timing/Duration: 4-6 hours Severity/Quality: moderate, dull Radiation: no radiation Prior CP/Workup: Cardiac Cath Nitro Today/Relief: 0.4 mg x 1, Complete Relief Aspirin Today: 325 mg x 1, Provided By ED Associated Symptoms: shortness of breath Allergies: Coded Allergies: Penicillins (Verified Allergy, Intermediate, RASH, 12/15/12) morphine (Verified Allergy, Mild, 11/06/14) Nkdpbha-Pth-Sdk Reductase Inhibitor (Verified Allergy, Unknown, Hives, 08/09/15) "FLU-LIKE SYMPTOMS" Home Meds Reported Medications Tramadol Hcl (TRAMADOL HCL) 50 Mg Tablet, 1-2 TAB PO Q6HR for PAIN, #20 TAB 05/02/18 Aspirin (ASPIR 81) 81 Mg Tablet.dr, 1 TAB PO DAILY, #30 TAB 5 Refills 04/28/18 Sertraline Hcl (SERTRALINE HCL) 100 Mg Tablet, 1 TAB PO HS 04/28/18 Pantoprazole Sodium (PROTONIX) 40 Mg Tablet.dr, 1 TAB PO DAILY, #30 TAB 5 Refills 04/28/18 Ramipril (RAMIPRIL) 5 Mg Capsule, 1 CAP PO BID, #30 CAP 5 Refills 04/28/18 Pravastatin Sodium (PRAVASTATIN SODIUM) 10 Mg Tablet, 1 TAB PO HS, #90 TAB 1 Refill 08/09/15 Ramipril 5MG (ALTACE 5MG) 5 Mg Capsule, 1 CAP PO DAILY, #30 CAP 5 Refills 11/06/14 Esomeprazole Magnesium (NEXIUM) 40 Mg Capsule.dr, 1 CAP PO DAILY, #30 CAP 5 Refills 11/06/14 Past Medical History Medical History: GERD, hypertension, other Surgical History: cardiac cath, cholecystectomy, knee, mastectomy Social History Smoking: non-smoker Alcohol Use: none Drug Use: none Constitutional: no symptoms reported EENTM: no symptoms reported Respiratory: see HPI Cardiovascular: see HPI Gastrointestinal: no symptoms reported Genitourinary: no symptoms reported All Other Systems: Reviewed and Negative Physical Exam General Appearance: No Apparent Distress, WD/WN Neck: Non-Tender, Full Range of Motion, Supple, Normal Inspection Respiratory: chest non-tender, lungs clear, normal breath sounds, no respiratory distress, no accessory muscle use Cardiovascular: Normal Peripheral Pulses, Regular Rate, Rhythm, No Edema, No Gallop, No JVD, No Murmur Gastrointestinal: Normal Bowel Sounds, No Organomegaly, No Pulsatile Mass, Non Tender, Soft Extremities: Normal Range of Motion, Non-Tender, Normal Inspection, No Pedal Edema, No Calf Tenderness, Normal Capillary Refill Neurologic/Psychiatric: lead carpenter II-XII NML as Tested, No Motor/Sensory Deficits, Alert, Normal Mood/Affect, Oriented x 3 Skin: Normal Color, Warm/Dry Results/Orders Results/Orders Orders - CASASNDRA BEACH MD Cbc With Auto Diff (01/17/19 14:16) Comprehensive Metabolic Panel (01/17/19 14:16) Creatine Kinase (01/17/19 14:16) Creatine Kinase Mb (01/17/19 14:16) Troponin I (01/17/19 14:16) Probnp B-Type Operations Inspector (01/17/19 14:16) PT (01/17/19 14:16) Partial Thromboplastin Time. (01/17/19 14:16) D-Dimer (01/17/19 14:16) Xr Chest 1v (01/17/19 14:16) Ekg-Routine (01/17/19 14:16) Aspirin (Aspirin) (01/17/19 14:38) Nitroglycerin (Nitrostat) (01/17/19 15:00) Aspirin (Aspirin) (01/17/19 14:37) Vital Signs Date Time Temp Pulse Resp B/P (MAP) Pulse Ox O2 Delivery O2 Flow Rate FiO2 01/17/19 15:08 97.9 71 18 150/77 (101) 94 Room Air 01/17/19 14:13 97.9 64 18 187/85 (119) 94 Room Air 01/17/19 14:12 97.9 64 01/17/19 14:10 97.9 82 18 94 Room Air Administered Medications Medications (Trade) Dose Ordered Sig/Bee Route PRN Reason Start Time Stop Time Status Last Admin Dose Admin Aspirin (Aspirin) 325 mg STAT STAT PO 01/17/19 14:38 01/17/19 14:39 DC 01/17/19 14:40 325 MG Nitroglycerin (Nitrostat) 0.4 mg PRN PRN SL CHEST PAIN 01/17/19 15:00 02/16/19 14:59 01/17/19 14:41 0.4 MG Laboratory Tests Test 01/17/19 14:10 White Blood Count 4.1 10^3/uL (4.5-11.0) L Red Blood Count 4.20 10^6/uL (4.00-5.20) Hemoglobin 11.5 g/dL (12.0-15.0) L Hematocrit 35.4 % (36.0-46.0) L Mean Corpuscular Volume 84.3 fL (78-100) Mean Corpuscular Hemoglobin 27.4 pg (26-34) Mean Corpuscular Hemoglobin Concent 32.5 g/dL (33-37) L Red Cell Distribution Width 13.6 % (11.5-14.5) Platelet Count 160 10^3/uL (150-400) Mean Platelet Volume 10.1 fL (7.8-11.0) Neutrophils (%) (Auto) 61.7 % (41.0-85.0) Lymphocytes (%) (Auto) 29.3 % (24.0-44.0) Monocytes (%) (Auto) 6.6 % (5.0-12.0) Neutrophils # (Auto) 2.5 10^3/uL (1.8-7.7) Lymphocytes # (Auto) 1.2 10^3/uL (1.0-4.8) Monocytes # (Auto) 0.3 10^3/uL (0.3-0.8) Absolute Immature Granulocyte (auto 0.01 10^3 u/L (0-2) Immature Granulocytes % 0.20 % (0.00-0.50) Eosinophils % 2.0 % (0.0-5.0) Basophils % 0.2 % (0.0-0.2) Basophils # 0.0 10^3/uL (0.0-0.1) Eosinophil Count 0.1 10^3/uL (0.0-0.2) Prothrombin Time 10.8 SEC (9.4-11.5) Prothrombin Time INR (Non-Therap) 1.0 Activated Partial Thromboplast Time 22.7 SEC (24.67-30.72) D-Dimer 0.47 mg/L (0.19-0.49) Sodium Level 145 mmol/L (132-145) Potassium Level 3.5 mmol/L (3.6-5.2) L Chloride Level 107.0 mmol/L (96-109) Carbon Dioxide Level 26.9 mmol/L (20.0-32) Anion Gap 14.6 Blood Urea Nitrogen 13 mg/dL (7-18) Creatinine 1.16 mg/dL (0.59-1.40) Estimated GFR () 54.4 (>/=60) BUN/Creatinine Ratio 11.0 Glucose Level 101 mg/dL (70-110) Calcium Level 9.0 mg/dL (8.4-10.5) Total Bilirubin 0.6 mg/dL (0.2-1.0) Aspartate Amino Transferase (AST) 23 U/L (0-35) Alanine Aminotransferase (ALT) 20 U/L (12-78) Alkaline Phosphatase 87 U/L (50-136) Total Creatine Kinase 73 U/L (26-192) Creatine Kinase MB 0.6 ng/mL (0.5-3.6) Troponin I < 0.02 ng/mL (0.00-0.05) Pro-B-Type Natriuretic Peptide 256 pg/mL (0-450) Total Protein 7.3 g/dL (6.4-8.2) Albumin 4.0 g/dL (3.4-5.0) Globulin 3.3 EKG/XRAY/CT/US EKG: NSR XRAY: chest (No active disease) Departure Time of Disposition: 15:33 Disposition: 09 ADMITTED INPATIENT Impression: Primary Impression: Chest pain Condition: Stable Referrals: CRISTINO DAMON MD (PCP) PRIMARY CARE PROVIDER Comments Admitted to Dr. Lott, spoke to Dr. Escamilla who will consult. Duration or Time Spent with Pa: 60 mins Problem Qualifiers Primary Impression: Chest pain Chest pain type: unspecified Qualified Codes: R07.9 - Chest pain, unspecified CASSANDRA BEACH MD Jan 17, 2019 15:29
[2019-01-17 16:49] VITALS: BP 143/79
[2019-01-17] MEDS ORDERED: LOVENOX SQ SCH (18:00)
[2019-01-17] MEDS ORDERED: APRESOLINE IV PRN ×2 (18:30→19:30)
--- NOTE | 2019-01-17 18:55 | PCM.HP ---
History of Present Illness Reason for Visit: Chest pain History of Present Illness Patient is an 78 F PMH of Roberto Carlos's Disease, GERD, HTN, and Anxiety who presents with chest pain that started this AM. Patient forgot to take medications this AM. She started having right sided chest pain with rest that was persistent. Pain was nonradiating. Patient denies associated symptoms. Pain resolved with Nitro/ASA in ER. Patient has been under a lot of stress lately. She has hx of negative heart cath x 2. Patient last cardiac stress test was abnormal. Patient chest pain is no longer present. She is in no distress during my evaluation. Her present during my evaluation. EKG negative for acute ischemic changes. Past Medical History Cardiac: HTN, Hyperlipidemia Heme/Onc: Cancer Psychiatric: Anxiety Musculoskeletal: Osteoarthritis Endocrine: Other (Roberto Carlos's Disease) Past Surgical History: Cholecystectomy, Other ([facility]) Past Social History Smoke: No Alcohol: none Lives: with Family Travel Hx EBOLA RISK:Travel to/contact w: No Is pt experiencing any Ebola s: No Review of Systems Constitutional: No: Fever, Chills Eyes: No: Conjunctivae inflammation, Eyelid inflammation ENT: No: Nose discharge, Nose congestion Respiratory: No: Cough, Shortness of breath, SOB with excertion, Wheezing Cardiovascular: Chest Pain; No: Palpitations, Edema Gastrointestinal: No: Nausea, Vomiting, Abdominal Pain Genitourinary: No Incontinence, No Retention Musculoskeletal: No: neck pain, back pain Skin: No: Rash, Lesions, Jaundice, Bruising Neurological: No: Weakness, Numbness, Incoordination, Change in speech, Confusion, Seizures Allergies: Coded Allergies: Penicillins (Verified Allergy, Intermediate, RASH, 12/15/12) morphine (Verified Allergy, Mild, 11/06/14) Okdkaia-Izf-Qbu Reductase Inhibitor (Verified Allergy, Unknown, Hives, 08/09/15) "FLU-LIKE SYMPTOMS" Scheduled Aspirin (Aspir 81), 1 TAB PO DAILY, (Reported) Esomeprazole Magnesium (Nexium), 1 CAP PO DAILY, (Reported) Pantoprazole Sodium (Protonix), 1 TAB PO DAILY, (Reported) Pravastatin Sodium (Pravastatin Sodium), 1 TAB PO HS, (Reported) Ramipril 5MG (Altace 5MG), 1 CAP PO DAILY, (Reported) Sertraline Hcl (Sertraline Hcl), 1 TAB PO HS, (Reported) Discontinued Medications Ramipril (Ramipril), 1 CAP PO BID, (Reported) Discontinued Reason: Discontinue Tramadol Hcl (Tramadol Hcl), 1-2 TAB PO Q6HR, (Reported) Discontinued Reason: Discontinue VTE VTE Risk Total Score: 3 VTE Risk Score VTE Risk: Score 0-1 = Low Risk (Aggressive mobilization; early ambulation; no VTE prophylaxis required) Score 2: Moderate Risk (Intermittent/Pneumatic Compression Device OR Lovenox/Heparin/Coumadin) Score 3-4: High Risk (Intermittent/Pneumatic Compression Device AND Lovenox/Heparin/Coumadin) Score > or =5: Highest Risk (Intermittent/Pneumatic Compression Device AND Lovenox/Heparin/Coumadin) VTE VTE Present on Admission: No Currently receiving anticoagul: No VTE Risk Total Score: 3 Exam Vital Signs Vital Signs Date Time Temp Pulse Resp B/P (MAP) Pulse Ox O2 Delivery O2 Flow Rate FiO2 01/17/19 16:49 71 18 143/79 (100) 95 01/17/19 16:39 Room Air 01/17/19 15:08 97.9 General Appearance: Alert, Oriented X3, Cooperative, No acute distress HEENT: Atraumatic, PERRLA, EOMI, Mucous membr. moist/pink Respiratory: Clear to auscultation, Normal air movement Cardiovascular: Regular rate, Normal S1, Normal S2, Other (systolic ejection murmur) Abdominal: Normal bowel sounds, Soft, No tenderness Extremities: No edema, Normal pulses, No tenderness/swelling Skin: No rash, No breakdown, No lesions Neuro: Normal speech, Strength at 5/5 X4 ext, Normal tone, Sensation intact, Cranial nerves 3-12 NL Psych/Mental Status: Mental status NL, Mood NL Assessment/Plan Assessment/Plan Assessment/Plan Patient is an 78 F PMH of Roberto Carlos's Disease, GERD, HTN, and Anxiety who presents with chest pain that started this AM. Patient History: Chronic obstructive pulmonary disease 32 MOTHER, G8 BROTHER Diabetes mellitus G8 SISTER, FH: heart disease 33 FATHER, G8 BROTHER G8 BROTHER Hypertension Plan 1. Chest pain: will rule out ACS. EKG negative for acute ischemic changes. Troponin negative x 1. Will trend overnight. CXR reviewed. Cardiology has been consulted. Nitro PRN. 2. HTN: cont WILFRED, Hydralazine PRN 3. GERD: cont PPI 4. 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 Symptoms have been worsening. 5. Anxiety: cont SSRI 6. PPx: PPI, Lovenox MANJULA RODRIGUEZ MD Jan 17, 2019 18:55
[2019-01-17 19:51] VITALS: BP 165/77
[2019-01-17] MEDS ORDERED: ZOLOFT PO SCH (21:00)
[2019-01-18 00:53] VITALS: BP 163/81
[2019-01-18 04:48] LABS: EOSINOPHIL # 0.1 10^3/uL (0.0-0.2); EOSINOPHIL % 1.6 % (0.0-5.0); LYMPHOCYTES # 1.8 10^3/uL (1.0-4.8); LYMPHOCYTES % 35.6 % (24.0-44.0); MEAN CORP HGB 27.4 pg (26-34); MONOCYTES # 0.3 10^3/uL (0.3-0.8); MONOCYTES % 6.9 % (5.0-12.0); NEUTROPHIL # 2.8 10^3/uL (1.8-7.7); NEUTROPHILS % 55.7 % (41.0-85.0); RED CELL DISTRIBUTION WIDTH 13.8 % (11.5-14.5)
[2019-01-18 05:01] LABS: ALANINE AMINOTRANSFERASE(ML) 16 U/L (12-78); ALKALINE PHOSPHATASE 70 U/L (50-136); ASPARTATE AMINO TRANSFERASE 20 U/L (0-35); CALCIUM 8.6 mg/dL (8.4-10.5); CARBON DIOXIDE 27.1 mmol/L (20.0-32); GLUCOSE 82 mg/dL (70-110)
[2019-01-18 05:31] VITALS: BP 158/90
[2019-01-18 08:35] VITALS: BP 199/82
[2019-01-18] MEDS ORDERED: ALTACE PO SCH (09:00)
[2019-01-18] MEDS ORDERED: ASPIRIN EC PO SCH (09:00)
[2019-01-18] MEDS ORDERED: PROTONIX PO SCH (09:00)
--- NOTE | 2019-01-18 10:13 | PCM.EKG ---
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
--- NOTE | 2019-01-18 10:34 | NUR ---
DR WESLEY OLSON HERE TO SEE PT AT THIS TIME. EKG OBTAINED PER ORDERS. DR WESLEY PITTMAN WITH PT FOLLOWING UP OUTPATIENT IN HIS OFFICE WEDNESDAY FOR STRESS TEST. DR CALVO NOTIFIED
[2019-01-18] MEDS ORDERED: NORVASC PO STA (10:51)
--- NOTE | 2019-01-18 10:59 | NUR ---
DISCHARGE PLAN CM VISITED WITH PT REGARDING D/C PLAN AND GOALS. PATIENT LIVES AT HOME WITH HER SPOUSE. SHE IS INDEPENDENT OF ADLS. SHE DENIES THE USE OF 02 OR DME IN THE HOME. HER PCP IS DR DAMON. HE LAST F/U WITH DR DAMON WAS LAST WEEK FOR A CHECK UP. SHE IS FINANCIALLY ABLE TO PAY FOR HER MEDICATIONS. CM EDUCATED PT ON OP SERVICES AND HH SERVICES. SHE REFUSED NEEDS AT THIS TIME. CHOICE LETTER REFUSAL SIGNED AND PLACED IN CHART. DISCHARGE GOAL IS FOR PT TO D/C BACK HOME TO ROUTINE CARE WITH HER SPOUSE. CM WILL CONTINUE TO MONITOR NEEDS OF PT.
[2019-01-18] MEDS ORDERED: TOPROL XL PO STA (11:53)
[2019-01-18] MEDS ORDERED: NORVASC ONE (11:54)
[2019-01-18 12:20] VITALS: BP 187/87
[2019-01-18] MEDS ORDERED: METO-236 PO (12:39)
[2019-01-18 13:26] VITALS: BP 187/87
--- NOTE | 2019-01-18 13:28 | NUR ---
DISCHARGE PT DISCHARGED AT THIS TIME. EDUCATED PT ON NEW PRESCRIPTION OF METOPROLOL. EDUCATED PT ON SIDE EFFECTS OF MEDICATION. EDUCATE PT FOLLOW UP APPOINTMENTS. PT STATES UNDERSTANDING. NO QUESTIONS VOICED. PT TAKEN VIA W/C IN STABLE CONDITION TO PRIVATE VEHICLE.
--- NOTE | 2019-01-18 19:05 | DSH ---
DATE OF DISCHARGE: 01/18/2019 REASON FOR ADMISSION: Chest pain. HISTORY OF PRESENT ILLNESS: This was an 78 years old female with the past medical history known of coronary artery disease and she has been followed by her pallet stone positioner as an outpatient. The patient apparently had a cardiac catheterization recently, which was acceptable and she has been taking her medications properly. The patient is also complaining of GERD symptoms, for which, she takes a proton pump inhibitor on a daily basis. The patient stated that she did not have her proton pump inhibitor yesterday and then she spent a long time shopping. After that, she started having some chest tightness. The patient came to our facility. She had cardiac enzymes done, which were negative. Her EKG also did not show any ischemic changes. The patient was evaluated then by Dr. Escamilla, her pallet stone positioner, and he suggested to discharge the patient home and continue her medications and follow up with him as an outpatient to have a stress test done as an outpatient to stratify her condition. The patient today is stable. No complaints. PHYSICAL EXAMINATION: VITAL SIGNS: Stable. HEART: Regular rhythm. CHEST: Clear. ABDOMEN: Soft. EXTREMITIES: No cyanosis, clubbing, or edema. FINAL DIAGNOSES: 1. Chest pain/rule out coronary artery disease. 2. Gastroesophageal reflux disease. 3. Hypertension. MANAGEMENT: We are going to discharge the patient home and let her follow up with Dr. Escamilla as an outpatient. I am going to start the patient on metoprolol succinate 25 mg daily. The patient also will follow up with her primary care physician as an outpatient. KAYKAY CALVO MD DR: JAMES/millicent JOB# [id number]
[2019-01-18] MEDS ORDERED: COREG PO SCH (21:00)
[2019-01-18] MEDS ORDERED: LIPITOR PO SCH (21:00)
--- NOTE | 2019-01-19 01:06 | CNH ---
DATE OF CONSULTATION: 01/18/2019 CHIEF COMPLAINT: Chest pain, came to the Emergency Room. PRIMARY PHYSICIAN: Hospitalist, Dr. Lott. HISTORY OF PRESENT ILLNESS: The patient is an 78-year-old white female with underlying history of Paget's disease and GERD and CA breast and post-chemoradiation and mastectomy over 5 years ago, followed by Dr. Meredith, oncologist in [place] and she has underlying history of hypertension, dyslipidemia, sees Dr. Mensah and she presented with chest heaviness, tightness and had it whole day and EKG revealed regular sinus rhythm with nonspecific ST-T wave changes and she was given nitro in the Emergency Room with improvement of her chest pain. She works around the house and is very active. Has some degree of shortness of breath, no leg edema. Hence, admitted with diagnosis of possible unstable angina for further evaluation and management and serial EKG, enzymes have been normal without any manifestation of acute coronary event and she is pain free at the present time. ALLERGIES: She says she is allergic to STATINS, MORPHINE, PENICILLIN. MEDICATIONS: She is on Nexium 40 mg once a day and she is on aspirin 81 mg once a day, pravastatin 10 mg once a day, ramipril 5 mg once a day, Zoloft 100 mg once a day. PAST MEDICAL HISTORY: History of hypertension; hypertensive heart disease and she has GERD manifestations; breast cancer survivor 5 years ago; had a catheterization done by me over 5 years ago and had normal coronaries and she has had cholecystectomy; Paget's disease, gets injection every 3 months for Paget's disease by Dr. Meredith. SOCIAL HISTORY: Prior history of remote smoking, quit about 20 years ago. No history of any ethanol abuse. FAMILY HISTORY: Two brothers in their 60s. They have had stents and father had heart problems also. PHYSICAL EXAMINATION: GENERAL: She is alert, awake, oriented, 162 cm and 84 kilograms and a BMI 32.1. VITAL SIGNS: Blood pressure was 199/82 with a pulse of 71, respirations 18, 98 temperature, and 94 saturation on room air. She is overweight and obese. HEENT: Unremarkable. NECK: No JVD, no carotid bruits. CHEST: Thick chest wall. LUNGS: Clear and post right mastectomy. HEART: S1, S2 normal. No obvious murmurs, gallop rhythm. ABDOMEN: Rounded, no organomegaly. Bowel sounds present. EXTREMITIES: Distal pulses fairly well felt. NEUROLOGIC: No focal neuro deficit is documented. LABORATORY DATA: Showed normal CBC. Chemistry was normal. Four troponins are negative. INR is normal. IMAGING STUDIES: Chest x-ray was unremarkable. Serial EKGs do not show any evolutionary changes of ischemia. IMPRESSION: New-onset chest pain, angina, hypertension, dyslipidemia, positive family history for heart problems, history of anxiety, depression, CA breast and post-chemoradiation and mastectomy, right side. RECOMMENDATIONS: At this time, since her blood pressure is not under control, increase the Ramipril to 10 mg once a day and start her on Coreg 6.25 mg twice a day, and start amlodipine 5 mg once a day. We will give her aspirin 81 mg once a day, Lipitor 40 mg once a day and she is on Protonix 40 mg once a day. We will stop her pravastatin and since there are no signs of any acute coronary event, she will come for Lexiscan myocardial perfusion scan next week on 01/23/2019. Thank you very much for this consultation. Laxmichand MD Andi DR: JAMMIE/millicent JOB# [id number]
[2019-01-19] MEDS ORDERED: NORVASC PO SCH (09:00)
[2019-01-19] MEDS ORDERED: ASPIRIN EC PO SCH (09:00)
[2019-01-19] MEDS ORDERED: ALTACE PO SCH (09:00)
--- NOTE | 2019-01-20 11:13 | ECHO ---
DATE OF SERVICE: 01/18/2019 An 78-year-old female. PRIMARY PHYSICIAN: Dr. Lott and Dr. Escamilla. INDICATION: History of unstable angina, post-breast cancer therapy and post right mastectomy, atypical chest pain, hypertension, hypertensive heart disease. Assess for LV function. FINDINGS: Mitral valve shows mitral annular calcification, mitral regurgitation, 3.9 meters velocity with normal E to A ratio and there is 2+ mitral regurgitation, aortic sclerosis calcification and adequate aortic valve opening of 2.2 square cm with a mild gradient of 5.6 cm across the aortic valve. Tricuspid valve shows mild tricuspid regurgitation. Right ventricular systolic pressure is 20 mm and right ventricle anterior wall appears to be normal. Right ventricle is normal. Right atrium is normal. Left atrium mildly enlarged to 5.65 cm in 4-chamber longitudinal dimension. Left ventricle is normal in size around 5.35 cm, end-diastolic dimension of 3.36 cm, end-systolic dimension with mild septal thickening and overall good contractility, ejection fraction of 60%. End-diastolic volume is normal. IVC top normal size, top normal LV wall thickness, normal LV dimension, intact LV systolic function, mild left atrial enlargement, and 2+ mitral regurgitation and mild tricuspid regurgitation, aortic sclerosis, no thrombus in any of the cardiac chambers. Laxmichand MD BOBBI Escamilla: JAMMIE/millicent JOB# [id number]
[2019-01-26] MEDS ORDERED: DONE5TAB53 PO (11:34)
[2019-01-26] MEDS ORDERED: PANT40TA3 PO (11:34)
[2019-01-26] MEDS ORDERED: EZET10TA20 PO (11:34)
[2019-01-26] MEDS ORDERED: CHOL200052 PO (11:34)
[2019-01-26] MEDS ORDERED: POTA10CA PO (11:34)
[2019-01-26] MEDS ORDERED: RAMI10CA36 PO (11:34)
== END 2019-01-18 13:38 | disposition home or self-care (01) | DRG 303 ==
LOC: ER 13:59 → MS 15:33 → OBSVTOIN 17:59
PROVIDERS: ADMIT Family Medicine; ATTEND Family Medicine
DX: I25.119 Atherosclerotic heart disease of native coronary artery with unspecified angina pectoris (principal); E11.9 Type 2 diabetes mellitus without complications; E78.5 Hyperlipidemia, unspecified; I11.9 Hypertensive heart disease without heart failure; J44.9 Chronic obstructive pulmonary disease, unspecified; F41.9 Anxiety disorder, unspecified; M19.90 Unspecified osteoarthritis, unspecified site; K21.9 Gastro-esophageal reflux disease without esophagitis; Z81.8 Family history of other mental and behavioral disorders; Z85.3 Personal history of malignant neoplasm of breast; Z87.891 Personal history of nicotine dependence; Z90.49 Acquired absence of other specified parts of digestive tract; Z79.899 Other long term (current) drug therapy; Z88.0 Allergy status to penicillin; Z88.5 Allergy status to narcotic agent; Z88.8 Allergy status to other drugs, medicaments and biological substances; Z90.11 Acquired absence of right breast and nipple
CPT/HCPCS: 36415; 71045; 80053; 82550; 82553; 83880; 84484; 85025; 85379; 85610; 85730; 93005; 93306; 99285; G0378; J1650

== ENCOUNTER 2019-01-30 06:02 | Day surgery (SDC) | payer MEDICARE, OTHER ==
[2019-01-26 11:48] VITALS: BP 177/79
[2019-01-26 12:16] LABS: BASOPHIL % 0.2 % (0.0-0.2); EOSINOPHIL % 0.7 % (0.0-5.0); HEMOGLOBIN 11.6 g/dL (12.0-15.0); MEAN CELL HGB 27.9 pg (26-34); MEAN CELL HGB CONCENTRATION 32.9 g/dL (33-37); MEAN CORP VOLUME 84.9 fL (78-100); MEAN PLATELET VOLUME 10.1 fL (7.8-11.0); MONOCYTES # 0.3 10^3/uL (0.3-0.8); MONOCYTES % 7.6 % (5.0-12.0); NEUTROPHIL # 2.7 10^3/uL (1.8-7.7); NEUTROPHILS % 67.3 % (41.0-85.0); RED CELL DISTRIBUTION WIDTH 13.7 % (11.5-14.5); WHITE BLOOD CELL 4.1 10^3/uL (4.5-11.0)
[2019-01-26 12:46] LABS: CALCIUM 9.5 mg/dL (8.4-10.5); CARBON DIOXIDE 28.6 mmol/L (20.0-32)
[2019-01-30] VITALS (9 sets, daily range): BP systolic 104–174; BP diastolic 51–82
[~2019-01-30] VITALS: Ht 160 cm; Wt 83.5 kg
--- NOTE | 2019-01-30 06:01 | HPH ---
ADMIT DATE: 01/30/2019 History and physical for the patient, 78-year-old female, outpatient for heart catheterization. CHIEF COMPLAINT: Abnormal myocardial perfusion scan. HISTORY OF PRESENT ILLNESS: The patient is an 78-year-old female [] breast cancer survivor, Paget's disease, hospitalized on 01/18/2019 with chest pain responsive to nitroglycerin. No acute coronary event. Came to the office, had a perfusion study which showed very positive stress test findings at 3 minutes of Amaury activity and mild hypoperfusion globally. EF was normal. Hence, came for cardiac catheterization today. See the details of the history from the inpatient on 01/18/2019. ALLERGIES: PENICILLIN, STATINS, TYLENOL, HYDROCODONE, MORPHINE. MEDICATIONS: She has been on aspirin 81 mg once a day, Zetia 10 mg once a day, metoprolol 25 mg once a day, Protonix 40 mg once a day, vitamin D3 2000 units daily, Aricept 5 mg once a day, potassium 10 mEq once a day, Ramipril 10 mg daily and Zoloft 100 mg once a day. PAST MEDICAL HISTORY: History of breast cancer, post-lumpectomy with chemoradiation by Dr. Meredith; hypertension; [] diabetes. SOCIAL HISTORY: Nonsmoker, no ethanol abuse. FAMILY HISTORY: Positive for heart problem. PHYSICAL EXAMINATION: GENERAL: She is alert, awake, oriented, 160 cm, 83 kg, BMI 32.6. VITAL SIGNS: Showing 98 temperature, pulse is 60-70, respirations 18, 170/80 blood pressure, 95 saturation on room air. HEENT: Unremarkable. NECK: No JVD, no carotid bruits. CHEST: Thick chest wall. LUNGS: Poor air entry bilaterally. HEART: Sounds S1, S2 normal. BREASTS: Post right lumpectomy. ABDOMEN: Truncal obesity. Bowel sounds present. EXTREMITIES: Distal pulses fairly well felt. NEUROLOGIC: Intact. IMAGING STUDIES: EKG showed poor R-wave progression V1 and V2, abnormal myocardial perfusion scan. LABORATORY DATA: Acceptable. IMPRESSION: Positive myocardial perfusion scan for cardiac catheterization on 01/30/2019. Laxmichand MD Andi DR: JAMMIE/millicent JOB# [id number]
[~2019-01-30 06:02] MED LIST changes: +CHOL200052 PO; +DONE5TAB53 PO; +EZET10TA20 PO; +METO-236 PO; +NS 1000ML 1,000 ML IV SCH; +NS 1000ML 1,000 ML ONE; +PHENERGAN PO ONE; +POTA10CA PO; +RAMI10CA36 PO; +VALIUM PO ONE
[2019-01-30] MEDS ORDERED: MIDAZOLAM HCL 1 MG/ML VIAL ONE (06:23)
[2019-01-30] MEDS ORDERED: NS 1000ML 1,000 ML ONE (06:23)
[2019-01-30] MEDS ORDERED: HEPARIN ONE (06:23)
[2019-01-30] MEDS ORDERED: SUBLIMAZE ONE (06:23)
[2019-01-30] MEDS ORDERED: XYLOCAINE ONE (06:24)
[2019-01-30] MEDS ORDERED: PHENERGAN ONE (06:30)
[2019-01-30] MEDS ORDERED: VALIUM ONE (06:31)
[2019-01-30] MEDS ORDERED: TRANDATE IV ONE (08:22)
[2019-01-30] MEDS ORDERED: TYLENOL PO ONE ×2 (08:45→08:46)
--- NOTE | 2019-01-30 09:03 | [facility] ---
DATE OF SERVICE: 01/30/2019 HEART CATH REPORT PRECATHETERIZATION DIAGNOSES: History of new onset angina, admitted 01/18/2019 in the hospital with nonspecific ST-T wave changes. Normal troponin and positive exercise tolerance test with myocardial perfusion scan with symptoms of angina and [address] depression, diffuse 2-3 minutes of Amaury activity with no definite reperfusion abnormality, may have mild hypoperfusion, hard to assess if there was any perfusion abnormality on myocardial perfusion and normal LV function, but in view of resting angina with history of hypertension, dyslipidemia, severe degree, and intolerance to statin with resting angina, decided to do cardiac catheterization. POSTCATHETERIZATION DIAGNOSES: Left main is patent, LAD is a type 3 vessel with distal tapering and proximal 20-30% luminal irregularity diagonal branch is patent. Circumflex is a good size vessel with an obtuse marginal branch, fully patent. Right coronary artery is a codominant vessel with a proximal 50-60% concentric lesion and subsequent distal prebifurcation, 50-60% stenosis with distal tapering of the vessel, no flow obstruction is documented. Left ventricle is normal in size with LVEDP of 20-25 mm with good wall contractility, ejection fraction of 60%. Angio-Seal deployed. ANESTHESIA: 2% lidocaine. PREOPERATIVE MEDICATIONS: Phenergan 25 mg p.o., Valium 2.5 mg p.o., Versed 2 mg IV, fentanyl 25 mcg IV. ANTICOAGULATION: Heparin 2000 units intra-arterially, 2000 units in the flush solution, 1000 units in the dye solution. Dye is Isovue, total amount 81 mL. CATHETERS: JL4 6-[place], JR4 6-[place], and 6-[place] angled pigtail catheter. ARTERIAL TIME: 5 minutes. FLUOROSCOPY TIME: 1 minute. PROCEDURES: Left heart catheterization, bilateral selective coronary arteriography, left ventriculography, and Angio-Seal deployment. NARRATION OF PROCEDURE: Under local anesthesia, right femoral artery was punctured percutaneously by arterial needle, guide wire passed in right femoral artery, 6-[place] Cordis sheath introduced, side port of the sheath used for femoral arterial pressure monitoring. Sheath anchored with suture. Left Cassi catheter introduced over guide wire into ascending aorta left coronary artery cannulated and left coronary angiography performed in TAJIK and DIXON projections with craniocaudal applications to visualize all branches. Left catheter exchanged for right coronary catheter and right coronary angiography performed in TAJIK and DIXON. This catheter exchanged for 6-[place] pigtail catheter and catheter crossed the aortic valve and left ventricular LVEDP measured and LV gram performed in 30 degrees DIXON view with 30 mL Omnipaque dye and panning of descending aorta attempted. Patient tolerated procedure well. No complications of procedure. Angio-Seal deployed for hemostasis. HEMODYNAMICS: LVEDP 15-20 mm, LV pressure was almost 200/15, given Trandate 10 mg IV with improvement of blood pressure to 155/78. Femoral artery pressure is 182/72 with a mean of 100. No gradient across the aorta on pullback of the central catheter. FINAL CONCLUSION: Non-flow obstructive coronary artery disease with proximal LAD, luminal irregularity, in the right coronary, proximal 50-60% concentric stenosis and distal 50-60% concentric stenosis with distal tapering and intact LV systolic function. RECOMMENDATIONS: Optimization of medical therapy. She has hypertension, dyslipidemia, intolerance to statins. We will increase ramipril to 10 mg twice a day and she is on metoprolol 50 mg once a day, may go up to metoprolol 100 mg once a day, aspirin 81 mg once a day, add Ranexa 500 mg twice a day. She is on Zetia 10 mg once a day and at the present time, we will get her qualified for Repatha, which is a PCSK9 inhibitor for improvement of her lipid profile and reduce event rates. Laxmichand MD Andi DR: JAMMIE/millicent JOB# [id number] CC: Hebert Mensah MD
[2019-01-30] MEDS ORDERED: RANO500T2 PO (09:17)
[2019-01-30] MEDS ORDERED: METO-238 PO (09:17)
== END 2019-01-30 11:00 | disposition home or self-care (01) | DRG 303 ==
LOC: SDC 06:02
PROVIDERS: ATTEND Specialist
DX: I25.118 Atherosclerotic heart disease of native coronary artery with other forms of angina pectoris (principal); I10 Essential (primary) hypertension; E11.9 Type 2 diabetes mellitus without complications; E78.5 Hyperlipidemia, unspecified; J44.9 Chronic obstructive pulmonary disease, unspecified; F41.9 Anxiety disorder, unspecified; F32.9 Major depressive disorder, single episode, unspecified; E78.00 Pure hypercholesterolemia, unspecified; M19.90 Unspecified osteoarthritis, unspecified site; E66.9 Obesity, unspecified; Z68.32 Body mass index [BMI] 32.0-32.9, adult; Z79.01 Long term (current) use of anticoagulants; Z85.3 Personal history of malignant neoplasm of breast; Z82.5 Family history of asthma and other chronic lower respiratory diseases; Z83.3 Family history of diabetes mellitus; Z82.49 Family history of ischemic heart disease and other diseases of the circulatory system; Z88.0 Allergy status to penicillin; Z88.8 Allergy status to other drugs, medicaments and biological substances
CPT/HCPCS: 36415; 80048; 85025; 85610; 85730; 93458; 99152; C1760; C1894 ×3; J1644 ×2; J2250; J3010; J7030 ×2; Q9967; J3490

== ENCOUNTER 2019-03-11 17:48 | Emergency (ER) | payer MEDICARE, OTHER ==
[~2019-03-11] VITALS: Ht 160 cm; Wt 83.5 kg
[~2019-03-11 17:48] MED LIST changes: +METO-238 PO; -NS 1000ML 1,000 ML IV SCH; -NS 1000ML 1,000 ML ONE; -PHENERGAN PO ONE; +RANO500T2 PO; -VALIUM PO ONE
[2019-03-11 18:01] VITALS: BP 190/84
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
[2019-03-11 18:06] VITALS: BP 190/84
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
[2019-03-11 18:38] VITALS: BP 181/97
[2019-03-11] MEDS ORDERED: TYLENOL PO ONE (18:42)
[2019-03-11] MEDS ORDERED: TYLENOL PO STA (18:42)
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
--- NOTE | 2019-03-11 19:28 | NUR ---
Waiting Patient is resting in the room, waiting on CT results. Patient says the pain, (headache) is now 1 out of 10. Family x 1 in the room. lw
--- NOTE | 2019-03-11 19:41 | DIREP ---
PROCEDURE: CT HEAD BRAIN W/O CONTRAST TECHNIQUE:Contiguous 5.0 mm transaxial sections were obtained from the vertex to skull base without the use of intravenous contrast. COMPARISON:MR, MRI BRAIN W/WO, 01/19/2017, 11:01 AM. [facility], CT, CT HEAD BRAIN W/O CONTRAST, 01/21/2018, 10:42 AM. [facility], CT, CT HEAD BRAIN W/O CONTRAST, 04/28/2018, 12:15 PM. INDICATIONS:headache FINDINGS: VENTRICLES:Within normal limits. CEREBRUM:No acute intracranial hemorrhage or mass effect. Hypoattenuation throughout the deep periventricular and subcortical white matter, consistent with chronic small vessel ischemia. CEREBELLUM:Normal. BRAINSTEM:Normal. SKULL:Normal. SINUSES:Well pneumatized. OTHER:Negative. CONCLUSION: 1. No acute intracranial hemorrhage or mass effect. 2. Age-related involutional and chronic microvascular ischemic changes. Dictated by: Stone López MD on 03/11/2019 at 07:37 PM
--- NOTE | 2019-03-11 20:13 | NUR ---
Status Sitting up in bed, denies pain. Family x 1 in the room. Vital signs stable. lw
[2019-03-11 20:15] VITALS: BP 162/98
== END 2019-03-11 20:43 | disposition home or self-care (01) ==
LOC: ER 17:48 → EDBD 17:48 → ER 20:43
DX: S12.300A Unspecified displaced fracture of fourth cervical vertebra, initial encounter for closed fracture (principal); S00.93XA Contusion of unspecified part of head, initial encounter; V49.9XXA Car occupant (driver) (passenger) injured in unspecified traffic accident, initial encounter; Y93.89 Activity, other specified; Y92.488 Other paved roadways as the place of occurrence of the external cause; Y99.8 Other external cause status
CPT/HCPCS: 70450; 72125; 99284; A9150

== ENCOUNTER → 2019-07-31 | Outpatient (CLI) | payer MEDICARE, OTHER ==
[2019-07-31 15:27] LABS: BASOPHIL % 0.6 % (0.0-0.2); EOSINOPHIL % 0.8 % (0.0-5.0); LYMPHOCYTES # 1.84 10^3/uL1 (1.0-4.8); LYMPHOCYTES % 37.3 % (24.0-44.0); MEAN CORP HGB 26.4 pg (26-34); MONOCYTES # 0.5 10^3/uL (0.3-0.8); MONOCYTES % 9.3 % (5.0-12.0); NEUTROPHIL # 2.6 10^3/uL (1.8-7.7); NEUTROPHILS % 51.8 % (41.0-85.0); PLATELET COUNT 184 10^3/uL (150-400); RED CELL DISTRIBUTION WIDTH 13.1 % (11.5-14.5)
[2019-07-31 15:48] LABS: CALCIUM 9.1 mg/dL (8.4-10.5); CARBON DIOXIDE 28.9 mmol/L (20.0-32)
[2019-08-02 08:02] LABS: COMPLEMENT C4 20 mg/dL (14-44)
== END | disposition home or self-care (01) ==
LOC: NPLAB 14:44
PROVIDERS: ATTEND Internal Medicine
DX: D50.0 Iron deficiency anemia secondary to blood loss (chronic) (principal); R53.1 Weakness; M79.7 Fibromyalgia; E53.8 Deficiency of other specified B group vitamins; Z85.3 Personal history of malignant neoplasm of breast; M35.00 Sjogren syndrome, unspecified; R04.2 Hemoptysis
CPT/HCPCS: 36415; 80053; 82306; 82607; 83550; 84439; 84443; 85025; 85651; 86038; 86160

== ENCOUNTER → 2019-08-02 | Outpatient (CLI) | payer MEDICARE, OTHER ==
--- NOTE | 2019-08-02 16:47 | DIREP ---
PROCEDURE:CT CHEST WITH CONTRAST COMPARISON:[facility], CT, CT ABD/PELVIS W/ CONTRAST, 08/02/2019, 03:02 PM. [facility], CT, CT SOFT TISSUE NECK W/CONTRAST, 08/02/2019, 03:02 PM. [facility], CR, XRAY CHEST SINGLE VW, 01/17/2019, 02:20 PM. INDICATIONS:PERSONAL HX MALIGNANT NEOPLASM OF BREAST, ENLARGED LYMPH NODES TECHNIQUE:Helical sections through the chest were performed from the lung apices through the diaphragms with IV contrast. Sagittal and coronal reconstructions are obtained from source images. The study was reviewed on abdominal, lung, liver and bone windows. FINDINGS: LUNGS:Normal. No visible pulmonary disease. No pulmonary nodules or infiltrates are seen. PLEURA:Normal. No mass or effusion. No pericardial or pleural effusions. CARDIAC:Normal. No enlargement, pericardial thickening, or significant calcification. Mild calcifications within the LAD MEDIASTINUM:Normal. No mass or adenopathy. No adenopathy in the mediastinum or neda. No internal mammary chain or cardiophrenic angle adenopathy is seen. NEDA:Normal. No mass or adenopathy. AORTA:Normal. No aneurysm. CHEST WALL:Normal. No mass or axillary adenopathy. Suspect right breast mammoplasty, or flap. Right axillary dissection. LIMITED ABDOMEN:Normal. Limited images of the upper abdomen are unremarkable. BONES:Normal. No bony lesion or fracture. No bony metastases. OTHER:Small hiatal hernia. CONCLUSION:Status post right mastectomy with a right breast mammoplasty or flap. Right axillary dissection. No adenopathy in the chest. No mediastinal or hilar adenopathy. No internal mammary chain adenopathy or right axillary adenopathy is seen. No pulmonary nodules or infiltrates are seen. No obvious bony metastases. Dictated by: Abraham López MD on 08/02/2019 at 04:42 PM
--- NOTE | 2019-08-02 17:06 | DIREP ---
PROCEDURE:CT SOFT TISSUE NECK W/CONTRAST COMPARISON:[facility], CT, CT ABD/PELVIS W/ CONTRAST, 08/02/2019, 03:02 PM. [facility], CT, CT CHEST W/CONTRAST, 08/02/2019, 03:02 PM. INDICATIONS:ENLARGED LYMPH NODES TECHNIQUE:CT images were created with intravenous contrast material. Sagittal and coronal reconstructions are performed. The study was reviewed on abdominal, lung, liver and bone windows. FINDINGS: NASOPHARYNX:Normal. Fossae of Rosenmuller and torus tubarius are symmetric. ORAL CAVITY:Normal. No visible mass. OROPHARYNX:Normal. Faucial and lingual tonsils are symmetric. No mucosal space mass lesion is seen. Parapharyngeal spaces and the shellfish checker spaces are normal. HYPOPHARYNX:Normal. No mass or other visible lesion. The epiglottis, and the PET from sinuses are symmetrical. The glossal epiglottic and the area epiglottic folds are satisfactory. Minimal retained secretion in the valleculae identified. LARYNX:Normal. The vocal cords are symmetric and without mass. No erosion of the leading edge of cartilages is seen. SINUSES:Normal. Limited views show no significant fluid or mucosal thickening. NECK GLANDS:Normal. The parotid, submandibular, and thyroid glands are unremarkable. LYMPH NODES:Small benign appearing lymph nodes are seen in the internal jugular chain as well as in the posterior triangle. No pathological adenopathy is seen. SKULL BASE:Normal. Foramina are symmetric without bony erosion. VASCULATURE:Normal. Limited views are unremarkable. BONES:Normal. No significant osseous lesions. No evidence for metastasis. Mild DJD at C5-6 and at C6-C7. OTHER:Normal. No additional imaging findings. CONCLUSION:Small lymph nodes in the internal jugular chain. No evidence for enlarged lymph nodes are seen to suggest pathological adenopathy. No mucosal space mass lesion or precervical soft tissue swelling is seen. Mild DJD at C5-6 and at C6-C7. No bony metastases are seen within the soft tissue neck. Dictated by: Abraham López MD on 08/02/2019 at 04:46 PM
--- NOTE | 2019-08-02 17:11 | DIREP ---
PROCEDURE:CT ABDOMEN/PELVIS W/ CONTRAST COMPARISON:[facility], CT, CT SOFT TISSUE NECK W/CONTRAST, 08/02/2019, 03:02 PM. [facility], CT, CT CHEST W/CONTRAST, 08/02/2019, 03:02 PM. INDICATIONS:ABD PAIN, ABNORMAL WEIGHT LOSS, NAUSEA, ANOREXIA TECHNIQUE:Axial images were created through the abdomen and pelvis with non-ionic intravenous contrast material. No oral contrast was administered. Sagittal and coronal reconstructions were performed from source images. The study was reviewed on abdominal, lung, liver and bone windows. FINDINGS: LUNG BASES:Normal. No visible pulmonary or pleural disease. Coronary artery calcifications within the LAD. In the base of the lungs, no pulmonary nodules or infiltrates are seen. LIVER:Normal. No significant liver lesions are identified. Mild fat infiltration of the liver. The portal vein is patent. BILIARY:Status post cholecystectomy. PANCREAS:Normal. No lesion, fluid collection, ductal dilatation, or atrophy. SPLEEN:Normal. No enlargement or focal lesion. ADRENALS:Normal. No mass or enlargement. URINARY TRACT:Normal. No focal lesions or hydronephrosis. AORTA/VASCULAR:Normal. No aneurysm. RETROPERITONEUM:Normal. No mass or adenopathy. BOWEL/MESENTERY:Normal. There is no intestinal obstruction, free fluid, free air or mesenteric inflammatory changes. The appendix is not visualized in the pericecal region and is presumed to be surgically absent. No colonic wall thickening is seen. No evidence for diverticulitis. Moderate amount of retained fecal matter in the colon. Stomach is moderately well distended. Small hiatal hernia noted. No small bowel obstruction is seen. No free air or free fluid is seen. ABDOMINAL WALL:Normal. No mass or hernia. PELVIC ORGANS:Normal. No visible mass. Pelvic organs appropriate for patient age. BONES:There is coarsening of the trabeculae of the right hemipelvis with cortical sclerosis. Findings likely indicate Paget's disease. Recommend a follow-up bone scan to rule out metastases. No other lytic lesions are seen in the lumbar vertebrae. No compression fractures are seen. OTHER:Negative. CONCLUSION:No hepatic metastases. Status post cholecystectomy. No pancreatitis or pseudocysts are seen. No renal obstruction is identified. No inflammatory changes, diverticulitis, free air or free fluid is seen. Cortical sclerosis involving the right hemipelvis with coarsening of the trabeculae. Findings likely indicate Paget's disease. However, a bone scan is still recommended to rule out metastases. I favor Paget's disease. Dictated by: Abraham López MD on 08/02/2019 at 05:05 PM
== END | disposition home or self-care (01) ==
LOC: RAD 14:31
PROVIDERS: ATTEND Internal Medicine
DX: R59.0 Localized enlarged lymph nodes (principal); R10.9 Unspecified abdominal pain; Z85.3 Personal history of malignant neoplasm of breast; R63.4 Abnormal weight loss; R11.0 Nausea; R63.0 Anorexia; M47.812 Spondylosis without myelopathy or radiculopathy, cervical region
CPT/HCPCS: 70491; 71260; 74177; Q9965

== ENCOUNTER 2019-08-16 11:43 | Emergency (ER) | payer MEDICARE, OTHER ==
[~2019-08-16] VITALS: Ht 160 cm; Wt 89.4 kg
[~2019-08-16 11:43] MED LIST changes: -LEXISCAN IV ONE
--- NOTE | 2019-08-16 11:55 | ER.PDOC ---
General Chief Complaint: Requesting Medical Care Stated Complaint: HIGH BP TRAVEL OUT OF US: No Time seen by MD: 11:49 Source: patient Exam Limitations: no limitations History of Present Illness Initial Comments Patient was undergoing a stress test when it was noted her BP was 219/104, (230/100, 215/100 manual). She was sent to ER to get her pressure down so she could safely finish her stress test. She states she is exceedingly nervous over stress test which was abnormal in the past. She has taken her metoprolol 100 mg this morning. She denies any sx other than anxiety over the test and dry mouth d/t sjogrens. Timing/Duration: unsure Severity: moderate Associated Symptoms: denies symptoms Allergies: Coded Allergies: Penicillins (Verified Allergy, Intermediate, RASH, 01/26/19) morphine (Verified Allergy, Mild, 01/26/19) Yweofvk-Ixf-Bis Reductase Inhibitor (Verified Allergy, Unknown, Hives, JOINT/BONE PAIN, 01/26/19) "FLU-LIKE SYMPTOMS" hydrocodone (Verified Allergy, Unknown, NAUSEA,VOMITING, NIGHTMARES, 01/26/19) Home Meds Active Scripts Ranolazine (RANEXA) 500 Mg Tab.er.12h, 1 TAB PO BID for 30 Days, #60 TAB 0 Refills Prov:KENYETTA OLSON MD 01/30/19 Metoprolol Succinate (METOPROLOL SUCCINATE) 100 Mg Tab.er.24h, 1 TAB PO DAILY, #30 TAB 5 Refills Prov:KENYETTA OLSON MD 01/30/19 Reported Medications Cholecalciferol (Vitamin D3) (VITAMIN D) 2,000 Unit Tablet, 1 TAB PO DAILY24 for 30 Days, #30 TAB 0 Refills 01/26/19 Potassium Chloride (POTASSIUM CHLORIDE) 10 Meq Capsule.er, 1 CAP PO DAILY, #90 CAP 1 Refill 01/26/19 Donepezil Hcl (ARICEPT) 5 Mg Tablet, 1 TAB PO DAILY24 for 30 Days, #30 TAB 0 Refills 01/26/19 Ramipril 10MG (ALTACE 10MG) 10 Mg Capsule, 1 CAP PO DAILY24 for 30 Days, #30 CAP 0 Refills 01/26/19 Ezetimibe (ZETIA) 10 Mg Tablet, 1 TAB PO HS for 30 Days, #30 TAB 0 Refills 01/26/19 Pantoprazole Sodium (PROTONIX) 40 Mg Tablet.dr, 1 TAB PO DAILY, #30 TAB 5 Refills 01/26/19 Aspirin (ASPIR 81) 81 Mg Tablet.dr, 1 TAB PO DAILY, #30 TAB 5 Refills 04/28/18 Sertraline Hcl (SERTRALINE HCL) 100 Mg Tablet, 1 TAB PO HS 04/28/18 Past Medical History Medical History: hypertension Surgical History: cancer surgery, cholecystectomy Social History Drug Use: none Review of Systems Constitutional: no symptoms reported EENTM: no symptoms reported Respiratory: no symptoms reported Cardiovascular: see HPI (HTN noted on exam; patient denies any symptoms) Gastrointestinal: no symptoms reported Musculoskeletal: no symptoms reported Skin: no symptoms reported Physical Exam General Appearance: No Apparent Distress, WD/WN, Anxious EENT: eyes nml inspection Respiratory: lungs clear, normal breath sounds, no respiratory distress, no accessory muscle use CVS: reg rate & rhythm Gastrointestinal: Normal Bowel Sounds Neurologic/Psychiatric: Alert, Normal Mood/Affect Skin: Normal Color Results/Orders Results/Orders Orders - LION AGARWAL DO Labetalol Hcl (Trandate) (08/16/19 11:59) Labetalol Hcl (Trandate) (08/16/19 12:30) Hydralazine Hcl (Apresoline) (08/16/19 12:35) Hydralazine Hcl (Apresoline) (08/16/19 12:36) Vital Signs Date Time Temp Pulse Resp B/P (MAP) Pulse Ox O2 Delivery O2 Flow Rate FiO2 08/16/19 13:26 62 20 99 Room Air 08/16/19 12:43 62 178/90 08/16/19 11:59 98.7 67 20 98 Administered Medications Medications (Trade) Dose Ordered Sig/Bee Route PRN Reason Start Time Stop Time Status Last Admin Dose Admin Hydralazine HCl (Apresoline) 10 mg STAT STAT IV 08/16/19 12:35 08/16/19 12:36 DC 08/16/19 12:43 10 MG Progress Progress Labetalol 10 mg IV ordered but withheld when HR approximated 60. IV hydralazine 10 mg administered and BP 160/62. Pt discharged back to cardio for stress test completion. At time of discharge, patient asked to visit with me again. She was concerned about blood flow through her carotid arteries and stated her neck and eyes felt funny. I listened to her carotids and did not auscultate bruits. I evaluated her airway for swelling and found none. There was no stridor or wheezing. PERRL. I offered to treat for presumptive allergic reaction to hydralazine, but patient declined. EKG/XRAY/CT/US EKG: NSR, no ST T wave changes Consult/PCP Time Consult/PCP Called: 11:52 Consult/PCP: discussed medication choice with Dr. Marks Reason/Comments: B-ruby is okay to use Departure Time of Disposition: 13:00 Disposition: 01 HOME, SELF-CARE Impression: Primary Impression: Asymptomatic hypertensive urgency Condition: Improved Patient Instructions: Hypertension Referrals: CRISTINO DAMON MD (PCP) PRIMARY CARE PROVIDER Additional Instructions: Continue home medications as prescribed. Complete your Stress Test today. Follow up with your doctor next week for re-evaluation. Return to ER if you have chest pain, difficulty breathing, persistent extremes in blood pressure, or for any other concerns. Duration or Time Spent with Pa: 10 min LION AGARWAL DO August 16, 2019 11:55
[2019-08-16 11:59] VITALS: BP 191/83
[2019-08-16] MEDS ORDERED: TRANDATE IV STA (11:59)
[2019-08-16] MEDS ORDERED: TRANDATE IV ONE (12:30)
[2019-08-16] MEDS ORDERED: APRESOLINE IV STA (12:35)
[2019-08-16] MEDS ORDERED: APRESOLINE ONE (12:36)
[2019-08-16 13:26] VITALS: BP 158/60
== END 2019-08-16 13:26 | disposition home or self-care (01) ==
LOC: ER 11:43
DX: I16.0 Hypertensive urgency (principal); I10 Essential (primary) hypertension; F41.9 Anxiety disorder, unspecified; M35.00 Sjogren syndrome, unspecified; Z79.82 Long term (current) use of aspirin; Z79.899 Other long term (current) drug therapy; Z88.0 Allergy status to penicillin; Z88.5 Allergy status to narcotic agent; Z88.8 Allergy status to other drugs, medicaments and biological substances; Z90.49 Acquired absence of other specified parts of digestive tract
CPT/HCPCS: 96374; 99283; J0360; J3490

== ENCOUNTER → 2019-08-16 | Outpatient (CLI) | payer MEDICARE, OTHER ==
[~2019-08-16] MED LIST changes: +LEXISCAN IV ONE
--- NOTE | 2019-08-16 19:24 | STRESS ---
DATE OF SERVICE: 08/16/2019 INDICATION FOR PROCEDURE: Chest pain. Baseline EKG shows normal sinus rhythm with nonspecific ST-T wave changes. Stress EKG shows normal sinus rhythm, unchanged from baseline. At recovery, EKG shows normal sinus rhythm, unchanged from baseline. Baseline blood pressure was noted to be 219/104 and decreased to 197/80 during stress. At recovery, blood pressure was noted to be 190/82. Baseline heart rate was noted to be 76 beats per minute at rest. It increased to 90 beats per minute during stress and at recovery, the heart rate was 99 beats per minute. The patient is noted to have hypertensive response to exercise during the stress test. Heart rate is appropriate for stress. There were no significant symptoms noted during stress. There were no arrhythmias noted during stress. EKG portion of stress test is negative for myocardial ischemia. Again, hypertensive response is noted. Nuclear images shows homogeneous tracer distribution across all wall segments with no evidence of myocardial ischemia or infarction. Prone images are negative for myocardial ischemia or infarction. Left ventricular ejection fraction is noted to be 81%. EDV is 38 mL, ESV 7 mL. The left ventricle is normal in size. Gated motion images shows normal wall motion across all segments of the left ventricle. TID is noted to be 1.37. There is no evidence of diaphragmatic attenuation artifact. IMPRESSION: 1. Normal myocardial perfusion imaging as visualized on prone stress images with no evidence of myocardial ischemia or infarction. 2. Left ventricular ejection fraction is noted to be 81%. 3. This is a negative study. CARLY GRANT D.O. DR: SILVIA/millicent JOB# [id number]
== END | disposition home or self-care (01) ==
LOC: RAD 10:20
PROVIDERS: ATTEND Internal Medicine Interventional Cardiology
DX: R06.02 Shortness of breath (principal)
CPT/HCPCS: 78452; 93017; A9500; J2785

== ENCOUNTER → 2019-08-22 | Outpatient (CLI) | payer MEDICARE, OTHER ==
--- NOTE | 2019-08-23 08:36 | DIREP ---
PROCEDURE:NM BONE SCAN TOTAL BODY/OMI COMPARISON:[facility], CT, CT ABD/PELVIS W/ CONTRAST, 08/02/2019, 03:02 PM. [facility], CT, CT CHEST W/CONTRAST, 08/02/2019, 03:02 PM. INDICATIONS:INTERCOSTAL PAIN, PERSONAL HX OF NEOPLASM OF BREAST, OSTEITIS DEFORMANS OF TECHNIQUE:After obtaining the patient's consent, Technetium 99m MDP was injected intravenously. Whole body and multiple projections of the ribs images were obtained approximately two hours later. PHARMACEUTICAL:Technetium 99m MDP, 24.5 mCi. FINDINGS: Distribution of radiotracer between the soft tissues and skeleton is within normal limits. Renal excretion appears symmetric. Activity most consistent with degenerative change is noted within the left midfoot. There is focal uptake in the anterior right 8th costochondral junction may be costochondritis or old fracture. There is deformity of the anterior right 7th rib correspond to the area bone scan uptake. Prominent uptake throughout the right patella. Recommend dedicated imaging of the right knee, differential includes mass versus fracture. Degenerative uptake right side of the lower thoracic spine. Faint uptake in the right acetabulum is likely degenerative. Paget's disease seen in the right pelvis on recent CT. Degenerative uptake in the mid to lower cervical spine, bilateral shoulders and sternoclavicular joints. CONCLUSION:Multifocal degenerative uptake. Prominent uptake in the right patella, recommend dedicated x-ray imaging of the right knee to exclude fracture or mass. Focal uptake in the anterior right 7th rib may be old trauma or costochondritis. Dictated by: Shaw Jones M.D. on 08/23/2019 at 08:29 AM
--- NOTE | 2019-08-23 13:19 | PRP ---
DATE OF PROCEDURE: 08/22/2019 PROCEDURE: Arterial Doppler ultrasound of the bilateral lower extremities. INDICATION FOR PROCEDURE: Bilateral lower extremity intermittent claudication. RIGHT LOWER EXTREMITY: The right common femoral artery has a flow velocity of 193.4 cm/sec with triphasic waveforms visualized. The right profunda femoris artery has a flow velocity of 181.8 cm/sec with biphasic waveforms seen. The right superficial femoral artery has a proximal flow velocity of 108.6 cm/sec with biphasic waveforms seen throughout. The right popliteal artery has a maximum flow velocity of 90.9 cm/sec with biphasic waveforms seen throughout. The right posterior tibial artery has a maximum flow velocity of 87.1 cm/sec with biphasic waveforms seen throughout. The right anterior tibial artery has a maximum flow velocity of 45.3 cm/sec with biphasic waveforms seen throughout. The right lower extremity has an ankle brachial index of 0.9. LEFT LOWER EXTREMITY: The left [employer] has a maximum flow velocity of 216.4 cm/sec with biphasic waveforms seen. The left profunda femoris artery has a maximum flow velocity of 197 cm/sec with biphasic waveforms seen. The left SFA has a maximum flow velocity of 178.7 cm/sec with biphasic waveforms seen throughout. The left popliteal artery has a proximal flow velocity of 120 cm/sec and a distal flow velocity of 87.9 cm/sec. Monophasic waveform is visualized in the distal left popliteal artery. Significant flow velocity is also noted from the proximal to distal segments of the left popliteal artery. The posterior tibial artery has a maximum flow velocity of 95.7 cm/sec. Monophasic waveform is visualized in the left proximal posterior tibial artery with biphasic waveforms in the mid to distal segments. The left anterior tibial artery has a maximum flow velocity of 101.7 cm/sec with biphasic waveforms. The left lower extremity has an ankle brachial index of 0.9. IMPRESSION: 1. There is no evidence of hemodynamically significant stenosis in the right lower extremity. 2. Significant flow velocity difference is noted in the left popliteal as well as posterior tibial artery with monophasic waveforms and suggestive of significant stenosis. 3. Bilateral ankle brachial indices are noted to be normal. RECOMMENDATION: CT angiography of the abdomen and pelvis with lower extremity runoffs is recommended if clinically indicated to further delineate peripheral anatomy of the lower extremities. CARLY GRANT D.O. DR: Lucinda JOB# [id number]
== END | disposition home or self-care (01) ==
LOC: RAD 10:09
PROVIDERS: ATTEND Internal Medicine Interventional Cardiology
DX: I70.213 Atherosclerosis of native arteries of extremities with intermittent claudication, bilateral legs (principal); R07.82 Intercostal pain; Z85.3 Personal history of malignant neoplasm of breast; M88.9 Osteitis deformans of unspecified bone
CPT/HCPCS: 78306; 93922; 93925; A9503

== ENCOUNTER → 2019-08-24 | Outpatient (CLI) | payer MEDICARE, OTHER ==
--- NOTE | 2019-08-25 19:24 | PRP ---
DATE OF PROCEDURE: 08/24/2019 VENOUS MAPPING ULTRASOUND. INDICATION FOR PROCEDURE: Chronic venous insufficiency. RIGHT LOWER EXTREMITY: The right greater saphenous vein measures 6 mm in its maximum diameter. Significant reflux is noted in the right GSV with maximum reflux greater than 7.3 seconds. The right small saphenous vein measures 3 mm in its maximum diameter. Significant reflux is also noted in the right small saphenous vein with maximum reflux of 0.9 seconds. There is no evidence of deep vein thrombosis in the right lower extremity. LEFT LOWER EXTREMITY: The left greater saphenous vein measures 9 mm in its maximum diameter. Significant reflux is noted in the left GSV with maximum reflux greater than 6.4 seconds. The left small saphenous vein measures 6 mm in its maximum diameter. Significant reflux is also noted in the left small saphenous vein with maximum reflux greater than 0.6 seconds. There is no evidence of deep vein thrombosis in the left lower extremity. IMPRESSION: 1. The right greater saphenous vein is normal sized but displays pathological reflux. 2. The right small saphenous vein is normal sized but displaced pathological reflux. 3. The left greater saphenous vein is dilated and displays pathological reflux. 4. The left small saphenous vein is severely dilated and displays pathological reflux. 5. There is no evidence of deep vein thrombosis in the bilateral lower extremities. RECOMMENDATIONS: Conservative measures including the use of compression stockings, leg elevation and exercise are recommended if clinically indicated. CARLY GRANT D.O. DR: SILVIA/millicent JOB# [id number]
== END | disposition home or self-care (01) ==
LOC: RAD 13:15
PROVIDERS: ATTEND Internal Medicine Interventional Cardiology
DX: I87.2 Venous insufficiency (chronic) (peripheral) (principal)
CPT/HCPCS: 93970

== ENCOUNTER → 2019-08-25 | Outpatient (CLI) | payer MEDICARE, OTHER ==
--- NOTE | 2019-08-25 17:11 | DIREP ---
PROCEDURE:CTA ABDOMEN PELVIS W RUNOFF COMPARISON:[facility], [place], [place] BONE SCAN TOTAL BODY/OMI, 08/22/2019, 02:11 PM. [facility], CT, CT ABD/PELVIS W/ CONTRAST, 08/02/2019, 03:02 PM. INDICATIONS:CAD TECHNIQUE:After obtaining the patient's consent, CTA images were created with non-ionic intravenous contrast material. Multiplanar reconstructions were evaluated. Post processing was performed to create MIPs. FINDINGS: SUPRARENAL AORTA:Normal. CELIAC:Patent. SMA:Patent. RIGHT RENAL:Patent. LEFT RENAL:Patent. INFRARENAL AORTA:Atherosclerotic calcification. No aneurysmal dilatation. RIGHT COMMON ILIAC:Patent. LEFT COMMON ILIAC:Patent. RIGHT EXTERNAL ILIAC:Patent. LEFT EXTERNAL ILIAC:Patent. RIGHT LOWER EXTREMITY: COMMON FEMORAL:Focal 50% stenosis within the distal portion. Otherwise patent SUPERFICIAL FEMORAL:Patent POPLITEAL:Patent ANTERIOR TIBIAL:Patent TIBIOPERONEAL TRUNK:Patent POSTERIOR TIBIAL:Patent PERONEAL:Patent LEFT LOWER EXTREMITY: COMMON FEMORAL:Focal 50% stenosis within the distal portion. Otherwise, patent. SUPERFICIAL FEMORAL:Patent POPLITEAL:Patent ANTERIOR TIBIAL:Patent TIBIOPERONEAL TRUNK:Patent POSTERIOR TIBIAL:Patent PERONEAL:Patent LIMITED CHEST:Within normal limits. LIVER:No focal lesion identified. BILIARY:Status post cholecystectomy. No biliary ductal dilatation. PANCREAS:No focal lesion or surrounding inflammatory change. SPLEEN:Within normal limits. KIDNEYS:Kidneys enhance symmetrically without hydronephrosis. No nephrolithiasis or ureteral calculi. Urinary bladder underdistended, limiting evaluation. ADRENALS:Within normal limits. RETROPERITONEUM:No mass or adenopathy. BOWEL/MESENTERY:No free air. Lack of oral contrast limits evaluation of the bowel structures. Small hiatal hernia. No small bowel dilatation seen to suggest obstruction. Appendix not definitively identified. ABDOMINAL WALL:No mass or hernia. PELVIS:Pelvic organs appropriate for patient's age. BONES:Stable appearance of right kathy pelvic thickening trabeculae and cortical sclerosis. No acute osseus abnormality. Right patellar fixation hardware. CONCLUSION: 1. 50% stenoses within the distal portions of the common femoral arteries bilaterally. 2. No other definite hemodynamically significant stenosis. Bilateral lower extremity runoffs within normal limits. 3. No bowel obstruction. 4. Status post cholecystectomy. 5. Grossly stable right hemipelvic sclerotic change, could represent Paget's disease. 6. Additional findings as described. Dictated by: Stone López MD on 08/25/2019 at 04:53 PM
== END | disposition home or self-care (01) ==
LOC: RAD 13:37
PROVIDERS: ATTEND Internal Medicine Interventional Cardiology
DX: I25.10 Atherosclerotic heart disease of native coronary artery without angina pectoris (principal)
CPT/HCPCS: 75635; Q9965

== ENCOUNTER → 2019-09-05 | Outpatient (CLI) | payer MEDICARE, OTHER ==
[~2019-09-05] MED LIST changes: -ASPI-484 PO; +ASPI-485 PO
--- NOTE | 2019-09-05 15:28 | DIREP ---
Dom PROCEDURE:XRAY RIBS 3VWS-RT COMPARISON:None. INDICATIONS:RIGHT RIB PAIN FINDINGS: RIBS:No fracture. OTHER:Lungs are clear. No pneumothorax or pleural effusion. Surgical clips over the right axillary region/right chest wall. Surgical clips in right upper quadrant abdomen. Normal heart size. Calcification of the thoracic aorta. Generalized mild osteopenia. Minimal dextroscoliosis of the thoracic and minimal levoscoliosis of the lumbar spine. CONCLUSION: 1. No evidence of right rib fracture. 2. Please see above discussion for details of other findings. Dictated by: Simon Cuellar M.D. on 09/05/2019 at 03:24 PM
--- NOTE | 2019-09-05 15:32 | DIREP ---
PROCEDURE:XRAY KNEE 2 VWS-RT COMPARISON:[facility], [place], [place] BONE SCAN TOTAL BODY/OMI, 08/22/2019, 02:11 PM. [facility], , XRAY KNEE 1-2 VWS-RT, 04/29/2018, 10:09 AM. INDICATIONS:RIGHT KNEE PAIN, hx paget's, abn bone scan FINDINGS: BONES:Old healed right patellar fracture with internal hardware in place. No acute fracture. No lytic or blastic lesions of bone. Tiny degenerative cysts in the lateral and posterior margins of the patella. Sclerosis and hypertrophy/enthesophyte formation along the inferior margin of the patella. JOINTS:Small right knee joint effusion. SOFT TISSUES:Normal. OTHER:No additional findings. CONCLUSION: 1. Old healed fracture of the right patella with internal fixation hardware in degenerative changes noted. The increased tracer uptake in the patella on recent radionuclide bone scan is likely due to postsurgical and degenerative changes. Internal fixation of right patella occurred in forever 2018. 2. Small right knee joint effusion. 3. No evidence of acute bony trauma in the right knee. Dictated by: Simon Cuellar M.D. on 09/05/2019 at 03:27 PM
== END | disposition home or self-care (01) ==
LOC: RAD 10:17
PROVIDERS: ATTEND Internal Medicine
DX: M17.11 Unilateral primary osteoarthritis, right knee (principal); M25.461 Effusion, right knee; R07.81 Pleurodynia; M41.86 Other forms of scoliosis, lumbar region; M41.84 Other forms of scoliosis, thoracic region; M85.88 Other specified disorders of bone density and structure, other site; I70.0 Atherosclerosis of aorta
CPT/HCPCS: 73560; 71100-RT

== ENCOUNTER → 2019-11-23 | Outpatient (CLI) | payer MEDICARE, OTHER ==
--- NOTE | 2019-11-23 23:46 | PRP ---
DATE OF PROCEDURE: 11/23/2019 POST VENOUS ABLATION DOPPLER ULTRASOUND INDICATION: Status post radiofrequency ablation of the right GSV. FINDINGS: There is no evidence of deep vein thrombosis in the right lower extremity. The right greater saphenous vein is noncompressible. There is no evidence of venous flow in the right GSV. Hyperechoic material is visualized in the right greater saphenous vein. IMPRESSION: 1. Successful radiofrequency ablation of the right greater saphenous vein. 2. There is no evidence of deep vein thrombosis in the right lower extremity. CARLY GRANT D.O. DR: SILVIA/millicent JOB# [id number]
== END | disposition home or self-care (01) ==
LOC: RAD 10:06
PROVIDERS: ATTEND Internal Medicine Interventional Cardiology
DX: I87.2 Venous insufficiency (chronic) (peripheral) (principal)
CPT/HCPCS: 93971

== ENCOUNTER → 2019-11-30 | Outpatient (CLI) | payer MEDICARE, OTHER ==
--- NOTE | 2019-11-30 20:48 | PRP ---
DATE OF PROCEDURE: 11/30/2019 POST VENOUS ABLATION DOPPLER ULTRASOUND INDICATION FOR PROCEDURE: Status post radiofrequency ablation of the left small saphenous vein. FINDINGS: There is no evidence of deep vein thrombosis in the left lower extremity. The left small saphenous vein is noncompressible. Hyperechoic material is visualized in the left small saphenous vein. There is no evidence of venous flow in the left SSV. IMPRESSION: 1. Successful radiofrequency ablation of the left small saphenous vein. 2. There is no evidence of deep vein thrombosis in the left lower extremity. CARLY GRANT D.O. DR: SILVIA/millicent JOB# [id number]
== END | disposition home or self-care (01) ==
LOC: RAD 10:44
PROVIDERS: ATTEND Internal Medicine Interventional Cardiology
DX: I87.2 Venous insufficiency (chronic) (peripheral) (principal)
CPT/HCPCS: 93971

== ENCOUNTER → 2019-12-07 | Outpatient (CLI) | payer MEDICARE, OTHER ==
--- NOTE | 2019-12-07 22:47 | PRP ---
DATE OF PROCEDURE: 12/07/2019 POST VENOUS ABLATION DOPPLER ULTRASOUND INDICATION FOR PROCEDURE: Status post radiofrequency ablation of the left GSV. FINDINGS: There is no evidence of deep vein thrombosis in the left lower extremity. The left greater saphenous vein is noncompressible. Hyperechoic material is visualized in the left GSV. There is no evidence of venous flow in the left greater saphenous vein. IMPRESSION: 1. Successful radiofrequency ablation of the left greater saphenous vein. 2. There is no evidence of deep vein thrombosis in the left lower extremity. CARLY GRANT D.O. DR: SILVIA/millicent JOB# [id number]
== END | disposition home or self-care (01) ==
LOC: RAD 12:49
PROVIDERS: ATTEND Internal Medicine Interventional Cardiology
DX: I87.2 Venous insufficiency (chronic) (peripheral) (principal)
CPT/HCPCS: 93971

== ENCOUNTER → 2019-12-14 | Outpatient (CLI) | payer MEDICARE, OTHER | END | disposition home or self-care (01) | LOC: RAD 10:29 | PROVIDERS: ATTEND Internal Medicine Interventional Cardiology | DX: I87.2 Venous insufficiency (chronic) (peripheral) (principal) | CPT/HCPCS: 93971 ==

== ENCOUNTER → 2020-01-04 | Day surgery (SDC) | payer MEDICARE, OTHER ==
[2020-01-01 13:33] VITALS: BP 148/79
[2020-01-01 14:14] LABS: CALCIUM 9.9 mg/dL (8.4-10.5); CARBON DIOXIDE 30.3 mmol/L (20.0-32)
[2020-01-01 14:19] LABS: BASOPHIL % 0.6 % (0.0-0.2); EOSINOPHIL # 0.1 10^3/uL (0.0-0.2); EOSINOPHIL % 1.6 % (0.0-5.0); LYMPHOCYTES # 1.69 10^3/uL1 (1.0-4.8); LYMPHOCYTES % 34.3 % (24.0-44.0); MEAN CORP HGB 29.5 pg (26-34); MONOCYTES # 0.3 10^3/uL (0.3-0.8); MONOCYTES % 6.5 % (5.0-12.0); NEUTROPHIL # 2.8 10^3/uL (1.8-7.7); NEUTROPHILS % 56.8 % (41.0-85.0); PLATELET COUNT 177 10^3/uL (150-400)
[2020-01-04] VITALS (10 sets, daily range): BP systolic 120–167; BP diastolic 48–89
[~2020-01-04] VITALS: Ht 160 cm; Wt 86.2 kg
[~2020-01-04] MED LIST changes: +ALPR0.5T PO; +FURO40TA4 PO; +HYDR200T5 PO; +HYDR200T72 PO; +METO25TA4 PO; +NS 1000ML 1,000 ML IV SCH; +POTA20TA14 PO; +SUBLIMAZE ONE; +VERSED ONE; +XYLOCAINE ONE
--- NOTE | 2020-01-04 18:41 | [facility] ---
DATE OF SERVICE: 01/04/2020 CARDIAC CATHETERIZATION REPORT INDICATION FOR PROCEDURE: Abnormal cardiac ischemic workup. HISTORY: This is an 79-year-old female who was seen in the outpatient setting initially and underwent cardiac ischemic workup, which was noted to be abnormal. In view of this, she was set up for cardiac catheterization. Informed consents were obtained and the patient was taken to the heart catheterization lab. PROCEDURES PERFORMED: 1. Selective coronary angiography. 2. Left ventriculography. 3. Hemostasis established using a 6-Irish MynxGrip. PROCEDURE: Access was obtained using a 4-Irish micropuncture kit to cannulate the right common femoral artery. The 4-Irish sheath was then upsized to a 6-Irish regular short sheath. Diagnostic angiography was then carried out using the Cassi left catheter to engage the left main. The left main was noted to be angiographically normal. It bifurcates into a left anterior descending artery and the left circumflex artery. The left anterior descending artery has a mid 40-50% focal lesion. It runs in the interventricular groove to the apex to form a type 2 LAD. It gives off 4 diagonal branches that are noted to have mild luminal irregularities. The left circumflex artery is noted to be codominant. It is noted to have mild luminal irregularities. It gives off 3 obtuse marginal branches that are also noted to have mild luminal irregularities. The second obtuse marginal branch continues as the left posterolateral branch supplying the posterolateral wall. Cassi left catheter was then exchanged for a Cassi right, which was used to cross the aortic valve into the left ventricle. Left ventriculography was performed. LVEF was noted to be 65%. LVEDP was noted to be 12. Upon pullback of the catheter, there was no gradient across the aortic valve. The Cassi right catheter was then used to engage the RCA. RCA angiography showed a mid RCA 50% lesion. The RCA bifurcates distally to an RPL and RPDA branch, both noted to have mild luminal irregularities. The Cassi right catheter was then taken out and hemostasis was established using a 6-Irish MynxGrip. 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 There were no complications. IMPRESSION: 1. Moderate coronary artery disease involving the right coronary artery. 2. Nonobstructive coronary artery disease. 3. Selective coronary angiography. 4. Left ventriculography. 5. LVEF of 65%. 6. LVEDP of 12. 7. Hemostasis established using a 6-Irish MynxGrip. RECOMMENDATIONS: No coronary intervention is necessary at this time. Lifestyle modification factors have been strongly advised. She will be discharged home today to follow up with me in the office in 2-3 weeks. CARLY GRANT D.O. DR: SILVIA/millicent JOB# [id number]
== END | disposition home or self-care (01) ==
LOC: CCL 10:00
PROVIDERS: ATTEND Internal Medicine Interventional Cardiology
DX: I25.110 Atherosclerotic heart disease of native coronary artery with unstable angina pectoris (principal); I12.9 Hypertensive chronic kidney disease with stage 1 through stage 4 chronic kidney disease, or unspecified chronic kidney disease; N18.30 Chronic kidney disease, stage 3 unspecified; I87.2 Venous insufficiency (chronic) (peripheral); M88.88 Osteitis deformans of other bones; I70.213 Atherosclerosis of native arteries of extremities with intermittent claudication, bilateral legs; E78.5 Hyperlipidemia, unspecified; F32.9 Major depressive disorder, single episode, unspecified; F41.9 Anxiety disorder, unspecified; K21.9 Gastro-esophageal reflux disease without esophagitis; Z90.11 Acquired absence of right breast and nipple; Z88.8 Allergy status to other drugs, medicaments and biological substances; Z88.0 Allergy status to penicillin; Z86.010 Personal history of colon polyps; Z90.49 Acquired absence of other specified parts of digestive tract; Z79.82 Long term (current) use of aspirin; Z79.899 Other long term (current) drug therapy; Z98.890 Other specified postprocedural states; Z79.01 Long term (current) use of anticoagulants
CPT/HCPCS: 36415; 80053; 85025; 85610; 85730; 93458; 99152; 99153; C1769; C1894 ×2; J1644 ×2; J2250; J3010; Q9967

== ENCOUNTER → 2020-04-19 | Outpatient (CLI) | payer MEDICARE, OTHER ==
[~2020-04-19] MED LIST changes: -NS 1000ML 1,000 ML IV SCH; +SERT-319 PO; -SERT100T5 PO; -SUBLIMAZE ONE; -VERSED ONE; -XYLOCAINE ONE
== END | disposition home or self-care (01) ==
LOC: NPLAB 10:30
PROVIDERS: ATTEND Internal Medicine
DX: U07.1 COVID-19 (principal)
CPT/HCPCS: 87426

== ENCOUNTER → 2020-06-28 | Outpatient (CLI) | payer MEDICARE, OTHER ==
--- NOTE | 2020-06-28 15:54 | PCM.ECHO ---
APPROVED REPORT EXAM: Comprehensive 2D, Doppler, and color-flow Echocardiogram. Patient Location: OUT-PATIENT Rhythm: NSR Indications Hypertension/HDD 2D Dimensions LVOT Diameter 1.76 (1.8-2.4cm) LVEF(%) 62.20 (>50%) M-Mode Dimensions Left Atrium(MM) 5.00 (2.5-4.0cm) IVSd 1.30 (0.7-1.1cm) Aortic Root 2.00 (2.2-3.7cm) LVDd 5.05 (4.0-5.6cm) Aortic Cusp Exc 1.15 (1.5-2.0cm) PWd 0.95 (0.7-1.1cm) MV EPSS 0.65 (<0.5cm) IVSs 1.75 cm FS (%) 38.50 % LVDs 3.10 (2.0-3.8cm) ESV(Teich) 38.62 ml PWs 1.20 cm LVEF(%) 68.52 (>50%) Volumes Biplane 2D LV Volumes Biplane 2D LA Volumes LVEDv A4C 79.69 mL LA ESV Index LVESv A4C 30.13 mL Aortic Valve AoV Peak Saleem. 1.40 m/s AoV VTI 36.65 cm AO Peak GR. 8.00 mmHg AO Mean GR. 4.35 mmHg LVOT VTI 29.27 cm LVOT Peak Saleem. 1.28 m/s RUSS(VTI)/BSA 1.94 cm2/m2 RUSS (VTI) 1.94 cm2 Mitral Valve MV E Velocity 1.45m/s MR Peak Gr. 93.65mmHg MV A Velocity 0.75m/s TDI Lateral E' P. V 0.08m/s Medial E' P. V 0.10m/s Pulmonary Valve PV Peak Velocity 0.55m/s PV Peak Grad. 1.40mmHg RVOT VTI 14.96cm Tricuspid Valve TR P. Velocity 2.95m/s RAP ESTIMATE 10.00mmHg TR Peak Gr. 35.57mmHg RVSP 45.57mmHg LEFT VENTRICLE The left ventricle is normal size. The left ventricular systolic function is normal. The left ventricular ejection fraction is within the normal range. There is normal left ventricular wall thickness. There is normal LV segmental wall motion. There is no ventricular septal defect visualized. No left ventricle thrombus noted on this study. LVEF is 55-60%. RIGHT VENTRICLE The right ventricle is normal size. The right ventricular systolic function is normal. There is normal right ventricular wall thickness. ATRIA The left atrium size is normal. The right atrium size is normal. The interatrial septum is intact with no evidence for an atrial septal defect. AORTIC VALVE The aortic valve is normal in structure. There is no aortic valvular stenosis. No aortic regurgitation is present. There is no aortic valvular vegetation. MITRAL VALVE The mitral valve is normal in structure. There is no mitral valve stenosis. Severe mitral regurgitation. There is no evidence of mitral valve vegetations. TRICUSPID VALVE The tricuspid valve is normal in structure. There is no tricuspid valve stenosis. Severe tricuspid regurgitation. There is no tricuspid valve vegetations. PULMONIC VALVE Pulmonic valve is not well visualized. There is no pulmonic valvular stenosis. There is no pulmonic valvular regurgitation. GREAT VESSELS The aortic root is normal in size. Pulmonary artery is not well visualized. Aortic arch is not well visualized. IVC is dilated. PERICARDIUM There is no pericardial effusion. There is no pleural effusion. Other Information Study Quality: Fair <Conclusion> The left ventricular systolic function is normal. LVEF is 55-60%. Severe mitral regurgitation. Severe tricuspid regurgitation. Electronically signed by : CARLY GRANT. 06/28/2020 15:53:59
== END | disposition home or self-care (01) ==
LOC: RT 10:03
PROVIDERS: ATTEND Internal Medicine Interventional Cardiology
DX: I08.1 Rheumatic disorders of both mitral and tricuspid valves (principal); I11.9 Hypertensive heart disease without heart failure
CPT/HCPCS: 93306